=== PATIENT | female | born 1965 | race Caucasian/White ===

== ENCOUNTER 2019-07-30 21:28 | Emergency (ER) | payer SELFPAY ==
--- NOTE | 2019-07-30 21:43 | ER Document Report ---
ED Medical Screen (RME) - General Stated Complaint: ALTERED MENTAL STATUS Notes: Patient is a 54-year-old white female with a past medical history of hypothyroidism on Synthroid who is a current everyday smoker and was recently diagnosed with an unknown type of cancer who presents to the emergency department accompanied by her daughters with a chief complaint of alteration in her baseline mental status. They report that the patient's not been answering her phone calls lately, when they have spoken with her she seemed a little bit odd but they thought that she was just ignoring them. She states that her sibling spoke with her the other night and had a good conversation but when she tried to call and re-create that conversation she states that her mother was abnormal. They went over to her house and found her to be what appeared unlike herself. They states she is acting weak and slightly confused. They report they are unsure the last time she was normal. They state no specific weaknesses or deficits. No facial drooping. They state that she seems oriented and the patient just keeps repeating "I just want to sleep". She denies any other specific complaints. I have treated and performed a rapid initial assessment of this patient. A comprehensive ED assessment and evaluation of the patient, analysis of test results and completion of medical decision making process will be conducted by additional ED providers. PHYSICAL EXAMINATION: GENERAL: Well-appearing, well-nourished and in no acute distress. A&Ox4. Answers questions appropriately. Neuro: Alert and oriented to self, place and situation, 4 out of 5 strength in all extremities, neurovascular intact in all. No focal deficits
--- NOTE | 2019-07-30 22:32 | RADIOLOGY REPORT (SQ) ---
EXAM DESCRIPTION: XR CHEST 2 VIEWS COMPLETED DATE/TME: 07/30/2019 21:39 CLINICAL HISTORY: 54 years, Female, AMS COMPARISON: None. NUMBER OF VIEWS: 2 TECHNIQUE: LIMITATIONS: None. FINDINGS: Lungs grossly clear. Cardiomediastinal silhouette is of normal size. Tiny metallic structure projecting over the central right arm. No pneumothorax. No pleural effusion IMPRESSION: No active intrathoracic disease copyright 2010 [employer]- All Rights Reserved
--- NOTE | 2019-07-30 22:33 | RADIOLOGY REPORT (SQ) ---
EXAM DESCRIPTION: CT HEAD WITHOUT IV CONTRAST COMPLETED DATE/TME: 07/30/2019 21:39 CLINICAL HISTORY: 54 years, Female, AMS COMPARISON: None. TECHNIQUE: Images stored on PACS. All CT scanners at this facility use dose modulation, iterative reconstruction, and/or weight based dosing when appropriate to reduce radiation dose to as low as reasonably achievable (ALARA). [facility]: Dose Right [facility]: CareDose [facility]: Dose Right [facility]: Teradose 4D [facility]: Smart Technologies LIMITATIONS: None. FINDINGS: James-white differentiation is normal. The ventricles and extracerebral spaces are within normal limits, for age. No evidence of mass lesion, positive mass effect, or intracranial hemorrhage. The orbits and eyeballs unremarkable. Paranasal sinuses and mastoid air cells are clear. Calvarium appears intact IMPRESSION: No acute intracranial process is identified. The cause of the patient's mental status change is not identified on this examination. TECHNICAL DOCUMENTATION: Quality ID # 436: Final reports with documentation of one or more dose reduction techniques (e.g., Automated exposure control, adjustment of the mA and/or kV according to patient size, use of iterative reconstruction technique) copyright 2011 [employer]- All Rights Reserved
[2019-07-30 23:10] LABS: ABSOLUTE BASOPHILS # (AUTO) 0.1 10^3/uL (0.0-0.2); ABSOLUTE LYMPHOCYTES (AUTO) 1.8 10^3/uL (0.5-4.7); ABSOLUTE MONOCYTES (AUTO) 0.4 10^3/uL (0.1-1.4); ABSOLUTE NEUT (AUTO) 4.9 10^3/uL (1.7-8.2); BASOPHILS % (AUTO) 0.7 % (0-2); EOSINOPHILS % (AUTO) 0.1 % (0-6); HEMATOCRIT 38.1 % (36.0-47.0); HEMOGLOBIN 13.4 g/dL (12.0-15.5); LYMPHOCYTES % (AUTO) 25.3 % (13-45); MEAN CORPUSCULAR HGB CONC 35.3 g/dL (32.0-36.0); MEAN CORPUSCULAR VOLUME 99 fl (80-97); MONOCYTES % (AUTO) 5.1 % (3-13); PLATELET COUNT 221 10^3/uL (150-450); RED BLOOD COUNT 3.84 10^6/uL (3.72-5.28); RED CELL DISTRIBUTION WIDTH 15.8 % (11.5-14.0); SEGMENTED NEUTROPHILS % (AUTO) 68.8 % (42-78); TOTAL CELLS COUNTED % (AUTO) 100 %; WHITE BLOOD COUNT 7.2 10^3/uL (4.0-10.5)
[2019-07-30 23:13] LABS: ALBUMIN 4.2 g/dL (3.5-5.0); ALKALINE PHOSPHATASE 324 U/L (38-126); ASPARTATE AMINO TRANSFERASE 608 U/L (14-36); BILIRUBIN,DIRECT 0.9 mg/dL (0.0-0.4); BILIRUBIN,TOTAL 1.3 mg/dL (0.2-1.3); BLOOD UREA NITROGEN 6 mg/dL (7-20); CALCIUM 9.4 mg/dL (8.4-10.2); GLUCOSE 91 mg/dL (75-110); POTASSIUM 3.8 mmol/L (3.6-5.0); TOTAL PROTEIN 7.3 g/dL (6.3-8.2)
[2019-07-30 23:18] LABS: ANION GAP 19 (5-19); CARBON DIOXIDE 25 mmol/L (22-30); CHLORIDE 91 mmol/L (98-107)
[2019-07-30] MEDS ORDERED: NORMAL SALINE 1000 ML 1,000 ML IV ONE (23:36)
[2019-07-30 23:58] LABS: APPEARANCE,URINE CLEAR; BILIRUBIN,URINE NEGATIVE (NEGATIVE); COLOR,URINE YELLOW; GLUCOSE, URINE NEGATIVE (NEGATIVE); KETONES,URINE 20 mg/dL (NEGATIVE); LEUKOCYTE ESTERASE,URINE NEGATIVE (NEGATIVE); NITRITE,URINE NEGATIVE (NEGATIVE); PROTEIN,URINE NEGATIVE (NEGATIVE); URINE SPECIFIC GRAVITY 1.014
--- NOTE | 2019-07-31 00:19 | ER Document Report ---
Entered by TAMIKO WEAVER SCRIBE 07/30/19 0164 Acting as scribe for:BETI VIRK IV, MD ED General - General Chief Complaint: Altered Mental Status Stated Complaint: ALTERED MENTAL STATUS Time Seen by Provider: 07/30/19 22:56 Mode of Arrival: Ambulatory Information source: Patient, Relative Notes: This 54 year old female patient who was recently diagnosed with breast cancer presents to the ED today with complaints of altered mental status per the daughters. Daughter states that she suspects that the patient has been in bed and not eating for the past x2 weeks. Daughter notes that the patient lives at her sister's house alone because she is currently residing in [place] with her boyfriend. Daughter states that when her and her other sibling went to go check on the patient, they found a bottle of wine, what appeared to be "dried out blood in the sink", and noticed that the patient seemed "out of it" and sleepy. Daughter notes that the patient appeared weak and confused. Daughter states that patient has had some weight loss in the past x6 months, but does not characterize how much. Patient states that she was diagnosed with breast cancer in 2019 after a spot was found underneath her right breast during a mammogram. Patient notes that she has no plans to seek medical attention or treatment for the cancer, stating "I don't want to be cut open". Patient states that she has had a poor appetite for awhile, stating that "I feel like I'm full all the time." Patient also reports nausea and vomiting when she thinks about food. Patient reports throat pain. TRAVEL OUTSIDE OF THE [place] IN LAST 30 DAYS: No - Related Data Allergies/Adverse Reactions: No Known Allergies Allergy (Unverified 07/31/19 01:10) Home Medications: levothyroxine 88 mcg qday Past Medical History - General Information source: Patient - Social History Smoking Status: Current Every Day Smoker Cigarette use (# per day): Yes Chew tobacco use (# tins/day): No Smoking Education Provided: No Family History: Reviewed & Not Pertinent Patient has suicidal ideation: No Patient has homicidal ideation: No Endocrine Medical History: Reports: Hx Hypothyroidism Malignancy Medical History: Reports: Hx Breast Cancer - recently diagnosed in 2019; untreated Review of Systems - Review of Systems Constitutional: See HPI, Weakness, Weight loss EENT: See HPI, Throat pain Cardiovascular: No symptoms reported Respiratory: No symptoms reported Gastrointestinal: See HPI, Nausea, Vomiting, Poor appetite Genitourinary: No symptoms reported Female Genitourinary: No symptoms reported Musculoskeletal: No symptoms reported Skin: No symptoms reported Hematologic/Lymphatic: No symptoms reported Neurological/Psychological: See HPI, Confusion, Other - Altered mental status -: Yes All other systems reviewed and negative Physical Exam - Vital signs Vitals: Temp Pulse Resp BP Pulse Ox 98.5 F 107 H 18 112/79 99 07/30/19 21:37 07/30/19 21:37 07/30/19 21:37 07/30/19 21:37 07/30/19 21:37 Interpretation: Tachycardic - General General appearance: Alert - HEENT Head: Normocephalic, Atraumatic Eyes: Normal Pupils: PERRL Mouth/Lips: Other - White discharge/patches on tongue - Respiratory Respiratory status: No respiratory distress Chest status: Nontender Breath sounds: Normal Chest palpation: Normal - Cardiovascular Rhythm: Tachycardia Heart sounds: Normal auscultation Murmur: No Friction rub: No Gallop: None auscultated - Abdominal Inspection: Normal Distension: No distension Bowel sounds: Normal Tenderness: Nontender - Abdomen soft Organomegaly: No organomegaly - Back Back: Normal, Nontender - Extremities General upper extremity: Normal inspection General lower extremity: Normal inspection - Neurological Neuro grossly intact: Yes - Psychological Associated symptoms: Normal affect, Normal mood - Skin Skin Temperature: Warm Skin Moisture: Dry Skin Color: Normal Course - Re-evaluation Re-evalutation: 07/31/19 02:53 Results of ED MSE discussed with patient. Patient offered resources for help with her alcohol use disorder. Patient declined. Patient states she can "stop whenever". All questions were answered prior to discharge. Emergency signs and symptoms, reasons to return to the ED discussed with patient. - Vital Signs Vital signs: Temp Pulse Resp BP Pulse Ox 98.4 F 99 11 L 107/80 97 07/30/19 22:54 07/30/19 22:54 07/31/19 02:01 07/31/19 02:01 07/31/19 02:01 - Laboratory Result Diagrams: 07/30/19 22:40 07/30/19 22:40 Laboratory results interpreted by me: 07/30/19 07/30/19 07/30/19 22:40 22:40 22:40 MCV 99 H MCH 35.0 H RDW 15.8 H Sodium 135.4 L Chloride 91 L BUN 6 L Creatinine 0.44 L Direct Bilirubin 0.9 H AST 608 H ALT 248 H Alkaline Phosphatase 324 H Ammonia < 8.7 L TSH Urine Ketones Urine Blood Urine Urobilinogen 07/30/19 07/30/19 22:40 23:42 MCV MCH RDW Sodium Chloride BUN Creatinine Direct Bilirubin AST ALT Alkaline Phosphatase Ammonia TSH 6.30 H Urine Ketones 20 H Urine Blood SMALL H Urine Urobilinogen 4.0 H Discharge - Discharge Clinical Impression: Alcohol use disorder Condition: Good Disposition: HOME, SELF-CARE Additional Instructions: Return to the Emergency Department without delay if any worse. HOME CARE INSTRUCTIONS & INFORMATION: Thank you for choosing us for your medical needs. We hope you're satisfied with the care you received. After you leave, you must properly care for your problem and, at the same time, observe its progress. Any condition can change. Some illnesses can change rapidly over hours or days. If your condition worsens, return to the Emergency Department or see your physician promptly. ABOUT YOUR X-RAYS AND EKG'S: If you had an EKG or X-rays taken, they have been read by the Emergency Physician. The X-rays and EKG's will also be read by a Radiologist or [facility] Steward/Stewardess within 24 hours. If discrepancies are noted, you will be notified by telephone. Please be certain the ED has a correct telephone number & address where you can be reached. Also, realize that some fractures or abnormalities do not show up on initial X-rays. If your symptoms continue, see your physician. ABOUT YOUR LABORATORY TEST: If you had laboratory tests, the results have been reviewed by the Emergency Physician. Some test results (for example cultures) may not be available for several days. You will be contacted if any test result shows you need additional treatment. Please be certain the ED has a correct telephone number and address where you can be reached. ABOUT YOUR MEDICATIONS: You will receive instructions on how to take your medicine on the prescription label you receive. Additional information may be provided by the Pharmacy. If you have questions afterwards, call the ED for clarification or further instructions. Some prescribed medications may cause drowsiness. Do not perform tasks such as driving a car or operating machinery without consulting your Pharmacist. If you feel you need a refill of pain m edication, your condition will need re-evaluation. Please do not call for a refill of any medication. ABOUT YOUR SIGNATURE: Signature of this document acknowledges to followin. Understanding that you received emergency treatment and that you may be released before al medical problems are known or treated. Please be certain the ED has a correct phone number & address where you can be reached. 2. Acknowledgement that you will arrange for follow-up care as recommended. 3. Authorization for the Emergency Physician to provide information to your follow-up Physician in order to maximize your care. AT ANY TIME, IF YOUR SYMPTOMS CHANGE SIGNIFICANTLY OR WORSEN OR YOU DEVELOP NEW SYMPTOMS, RETURN TO THE EMERGENCY DEPARTMENT IMMEDIATELY FOR RE-EVALUATION. OUR GOAL IS TO PROVIDE EXCELLENT MEDICAL CARE! WE HOPE THAT WE HAVE MET YOUR EXPECTATIONS DURING YOUR EMERGENCY DEPARTMENT VISIT AND THAT YOU FEEL YOU HAVE RECEIVED EXCELLENT CARE! Referrals: JF WEBER MD [HONORARY] - Follow up as needed I personally performed the services described in the documentation, reviewed and edited the documentation which was dictated to the scribe in my presence, and it accurately records my words and actions.
[2019-07-31 00:31] LABS: URINE AMPHETAMINES SCREEN NEGATIVE; URINE BARBITURATES SCREEN NEGATIVE; URINE BENZODIAZEPINES SCREEN NEGATIVE; URINE COCAINE SCREEN NEGATIVE; URINE MARIJUANA (THC) SCREEN NEGATIVE; URINE METHADONE SCREEN NEGATIVE; URINE PHENCYCLIDINE SCREEN NEGATIVE
--- NOTE | 2019-07-31 01:02 | RADIOLOGY REPORT (SQ) ---
EXAM DESCRIPTION: CT ABDOMEN PELVIS WITH IV CONTRAST COMPLETED DATE/TME: 07/30/2019 23:37 CLINICAL HISTORY: 54 years, Female, right upper quadrant abdominal pain COMPARISON: None. TECHNIQUE: Images stored on PACS. Additional delayed phase imaging All CT scanners at this facility use dose modulation, iterative reconstruction, and/or weight based dosing when appropriate to reduce radiation dose to as low as reasonably achievable (ALARA). [facility]: Dose Right [facility]: CareDose [facility]: Dose Right [facility]: Teradose 4D [facility]: [employer] LIMITATIONS: None. FINDINGS: Lung bases are clear. The heart is of normal size. Small hiatal hernia. Hepatic steatosis. Gallbladder is physiologically distended without inflammatory change. The pancreas appears unremarkable. The spleen appears grossly normal. The adrenals and kidneys appear grossly normal. The bowel is nonobstructed. A few mildly edematous loops of small bowel are identified. No high-grade obstruction. Pelvic contents demonstrate a dominant cyst left adnexa presumably left ovarian origin measuring 3.4 cm. No significant free fluid. No pneumothorax. The visualized bones are within normal limits for age IMPRESSION: Hepatic steatosis. Gallbladder distention without inflammatory change. Several mildly edematous loops of jejunum, likely a focal enteritis. Dominant cyst left ovary measuring 3.4 cm. TECHNICAL DOCUMENTATION: Quality ID # 436: Final reports with documentation of one or more dose reduction techniques (e.g., Automated exposure control, adjustment of the mA and/or kV according to patient size, use of iterative reconstruction technique) copyright 2011 [employer]- All Rights Reserved
[2019-07-31 03:51] VITALS: BP 120/81
--- NOTE | 2019-07-31 07:43 | EKG REPORT ---
SEVERITY:- BORDERLINE ECG - SINUS RHYTHM BORDERLINE INFERIOR Q WAVES : Confirmed by: Kyle Villalobos MD 31-Jul-2019 07:42:59
== END 2019-07-31 03:50 | disposition home or self-care (01) ==
LOC: ER 21:28
DX: R41.82 Altered mental status, unspecified (principal); Z72.89 Other problems related to lifestyle; C50.919 Malignant neoplasm of unspecified site of unspecified female breast; R11.2 Nausea with vomiting, unspecified; R53.1 Weakness; F17.210 Nicotine dependence, cigarettes, uncomplicated; E03.9 Hypothyroidism, unspecified
CPT/HCPCS: 93005; 99285; 96360; 36415; 82962; 80307 ×2; 82140; 83735; 84443; 85025; 80053; 81001; 84484; 71046; 70450; 74177; 93010; J7030

== ENCOUNTER 2019-08-24 15:42 | Emergency (ER) | payer SELFPAY ==
--- NOTE | 2019-08-24 16:36 | ER Document Report ---
ED Medical Screen (RME) - General Chief Complaint: General Weakness Stated Complaint: SHAKY, WEAKNESS Time Seen by Provider: 08/24/19 16:27 Mode of Arrival: Ambulatory Information source: Patient Notes: This 54-year-old female with history of hypothyroidism presents to the emergency department with complaints of no appetite, unable to taste, abdominal pain, not eating for the past week. Patient reports she feels very weak now. Reports this is never happened to her before. Patient just moved to [place] in June. She denies fever nausea vomiting reports diarrhea while ago nothing recent. Unsure of her last bowel movement but reports that she has not been eating so she did not expect any out put. Denies pain with void. Reports she takes levothyroxine for her thyroid. This is prescribed by her doctor in [place]. She reports she had labs done before she moved here and everything was normal. Upper quad epigastric area very tender to palpate. I have greeted and performed a rapid initial assessment of this patient. A comprehensive ED assessment and evaluation of the patient, analysis of test results and completion of the medical decision making process will be conducted by additional ED providers. TRAVEL OUTSIDE OF THE [place] IN LAST 30 DAYS: No - Related Data Allergies/Adverse Reactions: No Known Allergies Allergy (Verified 08/24/19 16:27) Past Medical History Endocrine Medical History: Reports: Hx Hypothyroidism Malignancy Medical History: Reports: Hx Breast Cancer - recently diagnosed in 2019; untreated Physical Exam - Vital signs Vitals: Temp Pulse Resp BP Pulse Ox 98.7 F 131 H 18 135/83 H 98 08/24/19 15:45 08/24/19 15:45 08/24/19 15:45 08/24/19 15:45 08/24/19 15:45 Course - Vital Signs Vital signs: Temp Pulse Resp BP Pulse Ox 98.7 F 131 H 18 135/83 H 98 08/24/19 15:45 08/24/19 15:45 08/24/19 15:45 08/24/19 15:45 08/24/19 15:45
--- NOTE | 2019-08-24 16:55 | RADIOLOGY REPORT (SQ) ---
EXAM DESCRIPTION: KUB/ABDOMEN (SINGLE VIEW) COMPLETED DATE/TIME: 08/24/2019 4:47 pm REASON FOR STUDY: ABD PAIN, UNSURE LAST BM COMPARISON: None. NUMBER OF VIEWS: One view. TECHNIQUE: Supine radiographic image of the abdomen acquired. LIMITATIONS: None. FINDINGS: BOWEL GAS PATTERN: Normal bowel gas pattern. No dilated loops. CALCIFICATIONS: No suspicious calcifications. SOFT TISSUES: No gross mass or suggestion of organomegaly. HARDWARE: None in the abdomen. BONES: No acute fracture. No worrisome bone lesions. OTHER: No other significant finding. IMPRESSION: NO RADIOGRAPHIC EVIDENCE FOR ACUTE ABDOMINAL DISEASE. TECHNICAL DOCUMENTATION: JOB ID: [id number] 2010 [employer]- All Rights Reserved Reading location - IP/workstation name: [email or web address]
[2019-08-24] MEDS ORDERED: NORMAL SALINE 1000 ML 1,000 ML IV ONE (17:14)
[2019-08-24 17:37] LABS: APPEARANCE,URINE SLIGHTLY-CLOUDY; BILIRUBIN,URINE NEGATIVE (NEGATIVE); COLOR,URINE AMBER; GLUCOSE, URINE NEGATIVE (NEGATIVE); KETONES,URINE TRACE mg/dL (NEGATIVE); LEUKOCYTE ESTERASE,URINE NEGATIVE (NEGATIVE); NITRITE,URINE NEGATIVE (NEGATIVE); PROTEIN,URINE 30 mg/dL (NEGATIVE); URINE SPECIFIC GRAVITY 1.024
[2019-08-24 17:48] LABS: ADD MANUAL MICROSCOPIC YES; WBC,URINE RARE /HPF
--- NOTE | 2019-08-24 17:56 | RADIOLOGY REPORT (SQ) ---
EXAM DESCRIPTION: U/S ABDOMEN LIMITED W/O DOP COMPLETED DATE/TIME: 08/24/2019 5:38 pm REASON FOR STUDY: RUQ EPIGASTRIC PAIN COMPARISON: CT dated 07/31/2019. TECHNIQUE: Dynamic and static grayscale images acquired of the abdomen and recorded on PACS. Additio nal selected color Doppler and spectral images recorded. Note: Study does not meet criteria for a complete doppler/duplex scan LIMITATIONS: None. FINDINGS: PANCREAS: No masses. Visualized pancreatic duct normal caliber. LIVER: Echotexture is coarse with increased echogenicity consistent with fatty infiltration. LIVER VASCULATURE: Normal directional flow of the main portal vein and hepatic veins. GALLBLADDER: Somewhat distended. No stones. Normal wall thickness. No pericholecystic fluid. ULTRASOUND-DETECTED SAEED'S SIGN: Negative. INTRAHEPATIC DUCTS AND COMMON DUCT: CBD and intrahepatic ducts normal caliber. No filling defects. INFERIOR VENA CAVA: Normal flow. AORTA: No aneurysm. RIGHT KIDNEY: Normal size. Normal echogenicity. No solid or suspicious masses. No hydronephrosis. No calcifications. PERITONEAL AND PLEURAL SPACES: No ascites or effusions. OTHER: No other significant finding. IMPRESSION: SOMEWHAT DISTENDED GALLBLADDER WITH NO GALLSTONES, SIMILAR FINDING ALSO SEEN ON RECENT C T. FATTY LIVER. NO OTHER SIGNIFICANT FINDING. TECHNICAL DOCUMENTATION: JOB ID: [id number] 2010 [employer]- All Rights Reserved Reading location - IP/workstation name: [email or web address]
[2019-08-24 18:20] LABS: ABSOLUTE MONOCYTES (AUTO) 0.3 10^3/uL (0.1-1.4); MONOCYTES % (AUTO) 4.8 % (3-13); PLATELET COUNT 183 10^3/uL (150-450); TOTAL CELLS COUNTED % (AUTO) 100 %
[2019-08-24 18:25] LABS: URINE AMPHETAMINES SCREEN NEGATIVE; URINE BARBITURATES SCREEN NEGATIVE; URINE BENZODIAZEPINES SCREEN NEGATIVE; URINE COCAINE SCREEN NEGATIVE; URINE MARIJUANA (THC) SCREEN NEGATIVE; URINE METHADONE SCREEN NEGATIVE; URINE PHENCYCLIDINE SCREEN NEGATIVE
[2019-08-24 18:26] LABS: ABSOLUTE LYMPHOCYTES (AUTO) 0.9 10^3/uL (0.5-4.7); ABSOLUTE NEUT (AUTO) 5.3 10^3/uL (1.7-8.2); BASOPHILS % (AUTO) 0.7 % (0-2); EOSINOPHILS % (AUTO) 0.1 % (0-6); HEMATOCRIT 29.4 % (36.0-47.0); LYMPHOCYTES % (AUTO) 13.5 % (13-45); MEAN CORPUSCULAR HGB CONC 33.9 g/dL (32.0-36.0); RED BLOOD COUNT 2.85 10^6/uL (3.72-5.28); RED CELL DISTRIBUTION WIDTH 17.5 % (11.5-14.0); SEGMENTED NEUTROPHILS % (AUTO) 80.9 % (42-78); WHITE BLOOD COUNT 6.5 10^3/uL (4.0-10.5)
[2019-08-24 18:27] LABS: MEAN CORPUSCULAR VOLUME 103 fl (80-97)
[2019-08-24 18:35] LABS: ALBUMIN 3.1 g/dL (3.5-5.0); ALKALINE PHOSPHATASE 159 U/L (38-126); ANION GAP 8 (5-19); ASPARTATE AMINO TRANSFERASE 209 U/L (14-36); BILIRUBIN,DIRECT 0.2 mg/dL (0.0-0.4); BLOOD UREA NITROGEN 6 mg/dL (7-20); CALCIUM 8.6 mg/dL (8.4-10.2); CARBON DIOXIDE 24 mmol/L (22-30); CHLORIDE 102 mmol/L (98-107); GLUCOSE 102 mg/dL (75-110); POTASSIUM 4.3 mmol/L (3.6-5.0); TOTAL PROTEIN 5.6 g/dL (6.3-8.2)
[2019-08-24 19:03] VITALS: BP 123/93
--- NOTE | 2019-08-24 19:34 | ER Document Report ---
ED General - General Mode of Arrival: Ambulatory TRAVEL OUTSIDE OF THE [place] IN LAST 30 DAYS: No - Related Data Home Medications: [facility] -levothyroxine 88 mcg daily <KUMAR APONTE - Last Filed: 08/24/19 19:27> <BERNARDA ECHEVERRIA - Last Filed: 08/24/19 21:41> - General Chief Complaint: Decreased Appetite Stated Complaint: SHAKY, WEAKNESS Time Seen by Provider: 08/24/19 16:27 - HPI Notes: Patient is a 54-year-old female who presents the emergency department for evaluation. States she states that over the last week she has had upper abdominal pain, decreased appetite, abnormal taste in her mouth, and just generalized weakness. She states she is never really had anything like this before. She describes the pain in her upper abdomen as "my intestines are falling out" but really cannot characterize it anymore. She has not had a bowel movement in 3 days, but really states she has not eaten anything, so this does not surprise her. She has had some nausea and diminished appetite but no stephany sis. She is still urinating, is still holding down liquids. Nothing seems to make her pain better or worse. She states that she has lost a significant amount of weight over the last several months, but she is unsure as to how much. (KUMAR APONTE) - Related Data Allergies/Adverse Reactions: No Known Allergies Allergy (Verified 08/24/19 16:27) Past Medical History - General Information source: Patient - Social History Smoking Status: Current Every Day Smoker Chew tobacco use (# tins/day): No Frequency of alcohol use: Heavy - Drinks daily Drug Abuse: None Family History: Reviewed & Not Pertinent, Malignancy Patient has suicidal ideation: No Patient has homicidal ideation: No Endocrine Medical History: Reports: Hx Hypothyroidism Malignancy Medical History: Reports: Hx Breast Cancer - recently diagnosed in 2019; untreated <KUMAR APONTE - Last Filed: 08/24/19 19:27> Review of Systems - Review of Systems Constitutional: See HPI Gastrointestinal: See HPI -: Yes All other systems reviewed and negative <KUMAR APONTE - Last Filed: 08/24/19 19:27> Physical Exam <KUMAR APONTE - Last Filed: 08/24/19 19:27> - Vital signs Vitals: Temp Pulse Resp BP Pulse Ox 98.7 F 131 H 18 135/83 H 98 08/24/19 15:45 08/24/19 15:45 08/24/19 15:45 08/24/19 15:45 08/24/19 15:45 - Notes Notes: This is a 54-year-old female who appears her stated age in no acute distress. She is very anxious in appearance, has intermittent tremor. Vital signs reviewed, please refer to chart. Head is normocephalic, atraumatic. Pupils equal round, reactive to light. Neck is supple without meningismus. Heart is regular rate and rhythm. Lungs are clear to auscultation bilaterally. Abdomen is soft, mildly tender in the epigastrium without rebound or guarding, normoactive bowel sounds throughout. Extremities without cyanosis, clubbing. Posterior calves are nontender. Peripheral pulses are equal. Skin is warm and dry. Patient is awake, alert, neurological exam is nonfocal. (KUMAR APONTE) Course - Laboratory Result Diagrams: 08/24/19 18:09 08/24/19 18:09 - Diagnostic Test Radiology reviewed: Reports reviewed <KUMAR APONTE - Last Filed: 08/24/19 19:27> - Laboratory Result Diagrams: 08/24/19 18:09 08/24/19 18:09 - Diagnostic Test Radiology reviewed: Reports reviewed <BERNARDA ECHEVERRIA - Last Filed: 08/24/19 21:41> - Re-evaluation Re-evalutation: 08/24/19 19:31 Patient presents to the emergency department for evaluation. Initially she complained of constitutional symptoms and abdominal pain. She was tachycardic, given IV fluids, and had a modest and temporary improvement in her heart rate. She denied any other medical history. She did have a mild elevation in her LFTs. I went back to prior labs, saw that they were actually worse in the past. I did have the opportunity at that time to review her last visit. It seems at that point that she admitted to a breast mass. I went in to discuss this with the patient. She states that yes, she was found to have a lump in her breast. She declined biopsy or any sort of evaluation. She states to me that it was because "once they cut into it, everything goes bad." I talked to her at length about this, and urged her to seek out further evaluation. Of course, this does significantly change my differential diagnosis and my thoughts on evaluation. I discussed with her my concerns about a pulmonary embolus, metastatic disease to the abdomen. She voiced understanding to this. She was amenable to having CT angiogram of the chest and CT abdomen and pelvis with IV contrast for further evaluation. This is ordered at this time. Patient is currently stable, we will continue to monitor. (KUMAR APONTE) 08/24/19 21:40 I did review the patient's CT results with her advised her to follow-up with a local provider to establish general medical care also gave her oncology on- call's information recommend following up with Dr. Winters in the next several days for continued management. Patient states that she understands. Patient will be discharged home in stable condition no new medications will be administered. (BERNARDA ECHEVERRIA) - Vital Signs Vital signs: Temp Pulse Resp BP Pulse Ox 98.7 F 131 H 21 H 123/93 H 98 08/24/19 15:45 08/24/19 15:45 08/24/19 19:01 08/24/19 19:01 08/24/19 19:01 - Laboratory Laboratory results interpreted by me: 08/24/19 08/24/19 08/24/19 16:50 17:01 18:09 RBC 2.85 L Hgb 10.0 L Hct 29.4 L MCV 103 H D MCH 35.0 H RDW 17.5 H Seg Neutrophils % 80.9 H Sodium BUN Creatinine POC Glucose 129 H AST ALT Alkaline Phosphatase Total Protein Albumin Urine Protein 30 H Urine Ketones TRACE H Urine Urobilinogen 4.0 H 08/24/19 18:09 RBC Hgb Hct MCV MCH RDW Seg Neutrophils % Sodium 134.2 L BUN 6 L Creatinine 0.44 L POC Glucose AST 209 H ALT 87 H Alkaline Phosphatase 159 H Total Protein 5.6 L Albumin 3.1 L Urine Protein Urine Ketones Urine Urobilinogen - Diagnostic Test Radiology results interpreted by me: 08/24/19 19:34 Abdomen Ultrasound 08/24/19 16:32 IMPRESSION: SOMEWHAT DISTENDED GALLBLADDER WITH NO GALLSTONES, SIMILAR FINDING ALSO SEEN ON RECENT CT. FATTY LIVER. NO OTHER SIGNIFICANT FINDING. KUB X-Ray 08/24/19 16:32 IMPRESSION: NO RADIOGRAPHIC EVIDENCE FOR ACUTE ABDOMINAL DISEASE. (KUMAR APONTE) Discharge <KUMAR APONTE - Last Filed: 08/24/19 19:27> <BERNARDA ECHEVERRIA - Last Filed: 08/24/19 21:41> - Discharge Clinical Impression: Breast mass, right Condition: Stable Disposition: HOME, SELF-CARE Additional Instructions: Please ensure to follow-up with a local provider to establish generalized medical care in the area Dr. Martines is 1 to be recommended. Please follow-up with Dr. Winters oncology/cancer specialist. Please advise his office that you were seen in the emergency department today had multiple studies performed that way they can obtain your records prior to your visit. Referrals: THOMAS MARTINES MD [ACTIVE STAFF] - Follow up as needed AGGIE WINTERS MD [ACTIVE STAFF] - Follow up as needed
--- NOTE | 2019-08-24 20:43 | RADIOLOGY REPORT (SQ) ---
CT OF THE CHEST, ABDOMEN, AND PELVIS EXAM DATE: 08/24/2019 7:20 PM CDT HISTORY: Shortness of breath. Abdominal pain. Breast mass. COMPARISON: 07/30/2019 TECHNIQUE: 1. CT angiogram of the chest with IV contrast. 3-D reconstructions were obtained in postprocessing. 2. CT scan of the abdomen and pelvis with IV contrast. This exam was performed according to our departmental dose-optimization program, which includes automated exposure control, adjustment of the mA and/or kV according to patient size and/or use of iterative reconstruction technique. FINDINGS: The thyroid gland is unremarkable. No mediastinal or hilar adenopathy. The heart size is normal without pericardial effusion. No consolidation, pleural effusion, or pneumothorax. There is a large hiatal hernia. Diffuse hepatic steatosis. Gallbladder, spleen, pancreas, adrenal glands, and kidneys are unremarkable. There is a 2 cm left ovarian cyst. There has been a prior hysterectomy. Large amount stool in the rectum. No bowel obstruction or inflammation. Normal appendix. No intraperitoneal free fluid or free air is seen. The aorta is normal caliber and contains atherosclerotic calcifications. No acute fracture is seen. No abnormal body wall hernia. There is a 2.4 x 1.5 cm soft tissue lesion in the right breast. IMPRESSION: 1. No acute pulmonary embolism. 2. No acute intra-abdominal findings. 3. 2.4 cm right breast mass.
== END 2019-08-24 22:00 | disposition home or self-care (01) ==
LOC: ER 15:42
DX: N63.0 Unspecified lump in unspecified breast (principal); K82.8 Other specified diseases of gallbladder; K76.0 Fatty (change of) liver, not elsewhere classified; R10.10 Upper abdominal pain, unspecified; R63.0 Anorexia; R53.1 Weakness; R43.9 Unspecified disturbances of smell and taste; R11.0 Nausea; R63.4 Abnormal weight loss; R00.0 Tachycardia, unspecified; F17.200 Nicotine dependence, unspecified, uncomplicated; E03.9 Hypothyroidism, unspecified; Z79.899 Other long term (current) drug therapy
CPT/HCPCS: 99284; 96360; 36415; 82962; 80307 ×2; 83690; 84443; 85025; 80053; 81001; 74018; 76705; 71275; 74177; J7030

== ENCOUNTER 2019-10-22 13:19 | Emergency (ER) | payer SELFPAY ==
[2019-10-22] MEDS ORDERED: NORMAL SALINE 1000 ML 1,000 ML IV ONE (13:57)
--- NOTE | 2019-10-22 13:58 | ER Document Report ---
ED General - General Stated Complaint: SHORTNESS OF BREATH Notes: CHIEF COMPLAINT: Multiple complaints HPI: 54-year-old alcoholic female presenting for evaluation of multiple complaints. Patient states over the last 6 days she has generally not felt well. States that she gets some lightheadedness when going from a lying to standing position. States she has not been eating well. States 4 days ago she did develop some nausea and increased generalized weakness. Denies dark tarry stools. States she threw up 2 or 3 times and noticed some blood in her emesis. Complains of a burning sensation through the upper chest and into the throat. Denies abdominal pain otherwise. Denies shortness of breath. Denies headache. States she does drink alcohol daily but has not had a drink in several days. Patient states she has been having difficulty walking because of her generalized weakness. She states she did drive herself to the ER today ROS: See HPI - all other systems were reviewed and are otherwise negative Constitutional: no fever Eyes: no drainage, no blurred vision ENT: no runny nose, no sore throat Cardiovascular: + chest pain Resp: no SOB, no cough GI: + vomiting, no diarrhea, no abdominal pain : no dysuria Integumentary: no rash Allergy: no hives Musculoskeletal: no extremity pain or swelling Neurological: no numbness/tingling, + generalized weakness MEDICATIONS: I agree with the patient medications as charted by the RN. ALLERGIES: I agree with the allergies as charted by the RN. PAST MEDICAL HISTORY/PAST SURGICAL HISTORY: Reviewed and agree as charted by RN. SOCIAL HISTORY: Reviewed and agree as charted by RN. FAMILY HISTORY: No significant familial comorbid conditions directly related to patient complaint EXAM: Reviewed vital signs as charted by RN. CONSTITUTIONAL: Alert and oriented and responds appropriately to questions. Cachectic-appearing; poorly -nourished, disheveled, appears older than stated age HEAD: Normocephalic; atraumatic EYES: PERRL; Conjunctivae clear, sclerae non-icteric ENT: normal nose; no rhinorrhea; dry mucous membranes; pharynx without lesions noted, no uvula edema or deviation, no tonsillar hypertrophy, phonation normal NECK: Supple without meningismus; non-tender; no cervical lymphadenopathy, no masses CARD: RRR; no murmurs, no clicks, no rubs, no gallops; symmetric distal pulses RESP: Normal chest excursion without splinting or tachypnea; breath sounds clear and equal bilaterally; no wheezes, no rhonchi, no rales, pulse oximetry 98% on room air not hypoxic ABD/GI: Normal bowel sounds; non-distended; soft, non-tender, no rebound, no guarding; no palpable organomegaly or masses. BACK: The back appears normal and is non-tender to palpation, there is no CVA tenderness EXT: Normal ROM in all joints; non-tender to palpation; no cyanosis, no effusions, no edema SKIN: Normal color for age and race; warm; dry; good turgor; no acute lesions noted NEURO: Moves all extremities equally; Motor and sensory function intact PSYCH: The patient's mood and manner are appropriate. Grooming and personal hygiene are appropriate. MDM: 54-year-old alcoholic female presenting with generalized weakness. States she threw up 2 days ago did see some blood in her vomit has not thrown up in the last 2 days she has absolutely no abdominal pain on exam. She has no cough or shortness of breath complains of a burning sensation in the throat, she likely has varices given her alcoholism. I did stand the patient up and she is generally weak in all extremities there is no unilateral weakness to suggest a stroke her speech is slightly slurred but she is answering all questions appropriately. She states her last drink was several days ago. Will obtain basic screening labs, hydrate patient, obtain orthostatics. TRAVEL OUTSIDE OF THE [place] IN LAST 30 DAYS: No - Related Data Allergies/Adverse Reactions: No Known Allergies Allergy (Verified 08/24/19 16:27) Past Medical History - Social History Smoking Status: Current Every Day Smoker Family History: Reviewed & Not Pertinent, Malignancy Endocrine Medical History: Reports: Hx Hypothyroidism Malignancy Medical History: Reports: Hx Breast Cancer - recently diagnosed in 2019; untreated Physical Exam - Vital signs Vitals: Pulse BP 105 H 102/64 10/22/19 13:56 10/22/19 13:56 Course - Re-evaluation Re-evalutation: 10/22/19 15:47 I went back to reassess the patient. On review of the records her blood counts have been consistently dropping over the last several months. With female wrapping machine helper present rectal exam was performed. Good rectal tone. No visible external hemorrhoids. Patient with a moderate amount of black tarry stool in the rectal vault that is Hemoccult positive. Will type and screen the patient. Will order Protonix. 10/22/19 16:[address] Mckeon, Surgicalist. He only performs diagnostic endoscopies did not perform interventional endoscopies. There is a question of whether this patient may have varices as well given her alcoholism, awaiting lab work still, will transfuse 2 units PRBCs given patient's tachycardia, hemoglobin less than 8 and positive GI bleed. Patient will likely need transfer, discussed with Dr. Alex 10/22/19 16:32 Notified by nursing that patient's potassium was 1.8, her calcium is 5.8. Will send an ionized calcium. Have ordered potassium replacement 40 mEq p.o. 40 mEq IV initially. Patient is on the monitor. 2 units of PRBCs have been ordered for the patient. Awaiting the rest of her lab work and will likely need transfer 10/22/19 17:52 I spoke with the transfer center at [facility] regarding transfer, awaiting call back 10/22/19 18:[address] Julio Cesar Harris, Hospitalist, [facility]. Case was discussed, aware patient is receiving blood products, we discussed patient's labs and vital signs. Accepts patient for admission to [facility], they will call back with bed when available - Vital Signs Vital signs: Temp Pulse Resp BP Pulse Ox 100.5 F H 93 13 95/68 L 99 10/22/19 18:20 10/22/19 18:20 10/22/19 18:20 10/22/19 18:20 10/22/19 18:20 - Laboratory Result Diagrams: 10/22/19 14:47 10/22/19 15:36 Laboratory results interpreted by me: 10/22/19 10/22/19 10/22/19 14:47 15:36 16:25 RBC 2.17 L Hgb 7.9 L Hct 21.4 L MCV 99 H MCH 36.2 H MCHC 36.7 H RDW 14.9 H Band Neutrophils % 1 L Sodium 121.8 L Potassium 1.8 L* Chloride 71 L Carbon Dioxide 45 H* Calcium 6.9 L* Ionized Calcium Aubrey AST 145 H ALT 70 H Alkaline Phosphatase 132 H Total Protein 4.6 L Albumin 2.3 L Lipase 958.5 H Crossmatch See Detail 10/22/19 17:16 RBC Hgb Hct MCV MCH MCHC RDW Band Neutrophils % Sodium Potassium Chloride Carbon Dioxide Calcium Ionized Calcium Aubrey 0.93 L AST ALT Alkaline Phosphatase Total Protein Albumin Lipase Crossmatch Critical Care Note - Critical Care Note Total time excluding time spent on procedures (mins): 75 Comments: Hypotension, active GI bleed requiring transfusion of blood products, multiple electrolyte abnormalities requiring emergent intervention Discharge - Discharge Clinical Impression: Upper GI bleed, Hypokalemia, Hypocalcemia, Generalized weakness Hypotension Qualifiers: Hypotension type: unspecified hypotension type Qualified Code(s): I95.9 - Hypotension, unspecified Condition: Fair Disposition: [facility]
[2019-10-22] MEDS ORDERED: LIDOCAINE 2% VISCOUS SOLN 15 ML UDCUP PO ONE (14:15)
[2019-10-22] MEDS ORDERED: MAG HYDROX/AL HYDROX/SIMETH SUSP 30 ML UDCUP PO ONE (14:15)
[2019-10-22 14:59] LABS: HEMATOCRIT 21.4 % (36.0-47.0); MEAN CORPUSCULAR HEMOGLOBIN 36.2 pg (27.0-33.4); MEAN CORPUSCULAR HGB CONC 36.7 g/dL (32.0-36.0); MEAN CORPUSCULAR VOLUME 99 fl (80-97); PLATELET COUNT 166 10^3/uL (150-450); RED BLOOD COUNT 2.17 10^6/uL (3.72-5.28); RED CELL DISTRIBUTION WIDTH 14.9 % (11.5-14.0); WHITE BLOOD COUNT 9.6 10^3/uL (4.0-10.5)
[2019-10-22 15:14] LABS: INTERNATIONAL RATION (INR) 1.08; PROTHROMBIN TIME 14.1 SEC (11.4-15.4)
[2019-10-22 15:21] LABS: ABSOLUTE LYMPHOCYTES# (MANUAL) 1.6 10^3/uL (0.5-4.7); ABSOLUTE MONOCYTES # (MANUAL) 0.9 10^3/uL (0.1-1.4); BAND NEUTROPHILS % (MANUAL) 1 % (3-5); BASOPHILS % (MANUAL) 0 % (0-2); EOSINOPHILS % (MANUAL) 0 % (0-6); LYMPHOCYTES % (MANUAL) 17 % (13-45); MONOCYTES % (MANUAL) 9 % (3-13); SEGMENTED NEUTROPHILS % (MAN) 73 % (42-78); TOTAL CELLS COUNTED 100
[2019-10-22 15:24] LABS: HYPERSEGMENTED NEUTROPHILS PRESENT; TOXIC GRANULATION 2+
[2019-10-22 15:29] LABS: ANISOCYTOSIS SLIGHT; PLATELET COMMENT ADEQUATE
--- NOTE | 2019-10-22 15:38 | RADIOLOGY REPORT (SQ) ---
EXAM DESCRIPTION: CT HEAD WITHOUT IMAGES COMPLETED DATE/TIME: 10/22/2019 3:11 pm REASON FOR STUDY: dizziness COMPARISON: 07/30/2019 TECHNIQUE: Axial images acquired through the brain without intravenous contrast. Images reviewed wi th bone, brain and subdural windows. Additional sagittal and coronal reconstructions were generated. Images stored on PACS. All CT scanners at this facility use dose modulation, iterative reconstruction, and/or weight based d osing when appropriate to reduce radiation dose to as low as reasonably achievable (ALARA). [facility]: Dose Right [facility]: CareDose [facility]: Dose Right [facility]: Teradose 4D [facility]: Smart Technologies RADIATION DOSE: CT Rad equipment meets quality standard of care and radiation dose reduction techniq ues were employed. CTDIvol: 53.2 mGy. DLP: 1097 mGy-cm. mGy. LIMITATIONS: None. FINDINGS: VENTRICLES: Normal size and contour. CEREBRUM: No masses. No hemorrhage. No midline shift. No evidence for acute infarction. Normal gra y/white matter differentiation. No areas of low density in the white matter. CEREBELLUM: No masses. No hemorrhage. No alteration of density. No evidence for acute infarction. EXTRAAXIAL SPACES: No fluid collections. No masses. ORBITS AND GLOBE: No intra- or extraconal masses. Normal contour of globe without masses. CALVARIUM: No fracture. PARANASAL SINUSES: No fluid or mucosal thickening. SOFT TISSUES: No mass or hematoma. OTHER: No other significant finding. IMPRESSION: NORMAL BRAIN CT WITHOUT CONTRAST. EVIDENCE OF ACUTE STROKE: NO. COMMENT: Quality ID # [id number]: Final reports with documentation of one or more dose reduction techniques (e.g., Automated exposure control, adjustment of the mA and/or kV according to patient size, use of iterative reconstruction technique) TECHNICAL DOCUMENTATION: JOB ID: [id number] 2010 [employer]- All Rights Reserved Reading location - IP/workstation name: [email or web address]
[2019-10-22] MEDS ORDERED: PANTOPRAZOLE SODIUM 40 MG VIAL IV ONE (15:47)
[2019-10-22] MEDS ORDERED: NORMAL SALINE 250 ML IV PRN (15:58)
--- NOTE | 2019-10-22 16:00 | RADIOLOGY REPORT (SQ) ---
EXAM DESCRIPTION: CHEST SINGLE VIEW IMAGES COMPLETED DATE/TIME: 10/22/2019 3:13 pm REASON FOR STUDY: cough COMPARISON: None. EXAM PARAMETERS: NUMBER OF VIEWS: One view. TECHNIQUE: Single frontal radiographic view of the chest acquired. RADIATION DOSE: NA LIMITATIONS: None. FINDINGS: LUNGS AND PLEURA: No opacities, masses or pneumothorax. No pleural effusion. MEDIASTINUM AND HILAR STRUCTURES: No masses. Contour normal. HEART AND VASCULAR STRUCTURES: Heart normal in size. Normal vasculature. BONES: No acute findings. HARDWARE: None in the chest. OTHER: No other significant finding. IMPRESSION: NO ACUTE RADIOGRAPHIC FINDING IN THE CHEST. TECHNICAL DOCUMENTATION: JOB ID: [id number] 2010 [employer]- All Rights Reserved Reading location - IP/workstation name: [email or web address]
[2019-10-22 16:12] LABS: ALBUMIN 2.3 g/dL (3.5-5.0); ALKALINE PHOSPHATASE 132 U/L (38-126); ASPARTATE AMINO TRANSFERASE 145 U/L (14-36); BILIRUBIN,DIRECT 0.1 mg/dL (0.0-0.4); BILIRUBIN,TOTAL 0.8 mg/dL (0.2-1.3); BLOOD UREA NITROGEN 17 mg/dL (7-20); CHLORIDE 71 mmol/L (98-107); GLUCOSE 83 mg/dL (75-110); TOTAL PROTEIN 4.6 g/dL (6.3-8.2)
[2019-10-22 16:19] LABS: ALCOHOL < 10 mg/dL (NONE DETECTED); ANION GAP 6 (5-19)
[2019-10-22 16:25] LABS: CALCIUM 6.9 mg/dL (8.4-10.2); CARBON DIOXIDE 45 mmol/L (22-30); POTASSIUM 1.8 mmol/L (3.6-5.0)
[2019-10-22] MEDS ORDERED: POTASSIUM CHLORIDE 10 MEQ TABLET.ER PO ONE (16:28)
[2019-10-22] MEDS: POTASSI CL 20 MEQ/50 ML RIDER 20 MEQ/50 ML RTUPB IV SCH ×2 (17:20→19:36)
[2019-10-22] MEDS ORDERED: ACETAMINOPHEN 325 MG TABLET PO ONE (18:20)
--- NOTE | 2019-10-22 21:24 | EKG REPORT ---
SEVERITY:- NORMAL ECG - SINUS RHYTHM : Confirmed by: Kyle Villalobos MD 22-Oct-2019 21:24:24
[2019-10-22 21:34] VITALS: BP 96/71
[2019-10-23 13:46] LABS: HEMOGLOBIN 7.9 g/dL (12.0-15.5)
== END 2019-10-22 21:50 | disposition short-term general hospital (02) ==
LOC: ER 13:19
DX: K92.2 Gastrointestinal hemorrhage, unspecified (principal); E87.6 Hypokalemia; E83.51 Hypocalcemia; I95.9 Hypotension, unspecified; R53.1 Weakness; R06.02 Shortness of breath; R07.9 Chest pain, unspecified; F17.200 Nicotine dependence, unspecified, uncomplicated
CPT/HCPCS: 93005; 99291; 99292; 96361; 96375; 96365; 96366; 86900; 86901; 36415; 36430; 86850; 80307; 83690; 85025; 85610; 80053; 84484; 86920; 82330; 71045; 70450; 93010; P9016; J3490; C9113; J3480; J7030; J7050

== ENCOUNTER 2020-01-30 16:17 | Inpatient (IN) | payer SELFPAY ==
--- NOTE | 2020-01-30 17:34 | ER Document Report ---
ED Medical Screen (RME) - General Chief Complaint: Urinary Problem Stated Complaint: URINARY ISSUE Time Seen by Provider: 01/30/20 17:30 Mode of Arrival: Wheelchair Information source: Patient Notes: 55-year-old female presented to ED for urinary retention since yesterday. She states she is also had diarrhea for the last 2 days. She states she has had about 3 stools today. She states she drank 3 bottles of water and she is only sprinkled a little bit of urine. She is alert and oriented respirations regular nonlabored at this time. She states she does sometimes have shortness of blue th. She she states her abdomen is totally bloated until she cannot eat anything and is so painful that she cannot get off the couch the last 4 days. Patient does have ascites with a history of cirrhosis. I have greeted and performed a rapid initial assessment of this patient. A comprehensive ED assessment and evaluation of the patient, analysis of test results and completion of medical decision making process will be conducted by an additional ED providers. TRAVEL OUTSIDE OF THE [place] IN LAST 30 DAYS: No - Related Data Allergies/Adverse Reactions: No Known Allergies Allergy (Verified 01/30/20 17:29) Past Medical History Endocrine Medical History: Reports: Hx Hypothyroidism Malignancy Medical History: Reports: Hx Breast Cancer - recently diagnosed in 2019; untreated Physical Exam - Vital signs Vitals: Temp Pulse Resp BP Pulse Ox 97.9 F 117 H 20 107/74 100 01/30/20 16:28 01/30/20 16:28 01/30/20 16:28 01/30/20 16:28 01/30/20 16:28 Course - Vital Signs Vital signs: Temp Pulse Resp BP Pulse Ox 97.9 F 117 H 20 107/74 100 01/30/20 16:28 01/30/20 16:28 01/30/20 16:28 01/30/20 16:28 01/30/20 16:28
[2020-01-30 18:12] LABS: APPEARANCE,URINE CLOUDY; BILIRUBIN,URINE SMALL (NEGATIVE); CALCIUM OXALATE CRYSTALS,URINE RARE /HPF; COLOR,URINE AMBER; GLUCOSE, URINE NEGATIVE (NEGATIVE); KETONES,URINE NEGATIVE (NEGATIVE); LEUKOCYTE ESTERASE,URINE NEGATIVE (NEGATIVE); NITRITE,URINE NEGATIVE (NEGATIVE); PROTEIN,URINE 100 mg/dL (NEGATIVE); URINE SPECIFIC GRAVITY 1.025
[2020-01-30 18:22] LABS: URINE AMPHETAMINES SCREEN NEGATIVE; URINE BARBITURATES SCREEN NEGATIVE; URINE BENZODIAZEPINES SCREEN NEGATIVE; URINE COCAINE SCREEN NEGATIVE; URINE MARIJUANA (THC) SCREEN NEGATIVE; URINE METHADONE SCREEN NEGATIVE; URINE PHENCYCLIDINE SCREEN NEGATIVE
[2020-01-30 19:07] LABS: ABSOLUTE BASOPHILS # (AUTO) 0.1 10^3/uL (0.0-0.2); ABSOLUTE LYMPHOCYTES (AUTO) 1.3 10^3/uL (0.5-4.7); ABSOLUTE MONOCYTES (AUTO) 0.4 10^3/uL (0.1-1.4); ABSOLUTE NEUT (AUTO) 10.7 10^3/uL (1.7-8.2); BASOPHILS % (AUTO) 0.5 % (0-2); HEMATOCRIT 29.2 % (36.0-47.0); HEMOGLOBIN 9.8 g/dL (12.0-15.5); LYMPHOCYTES % (AUTO) 10.6 % (13-45); MEAN CORPUSCULAR HEMOGLOBIN 37.8 pg (27.0-33.4); MEAN CORPUSCULAR HGB CONC 33.6 g/dL (32.0-36.0); MONOCYTES % (AUTO) 3.3 % (3-13); PLATELET COUNT 237 10^3/uL (150-450); RED CELL DISTRIBUTION WIDTH 18.3 % (11.5-14.0); SEGMENTED NEUTROPHILS % (AUTO) 85.6 % (42-78); TOTAL CELLS COUNTED % (AUTO) 100 %; WHITE BLOOD COUNT 12.6 10^3/uL (4.0-10.5)
[2020-01-30 19:12] LABS: ALBUMIN 2.4 g/dL (3.5-5.0); ALKALINE PHOSPHATASE 331 U/L (38-126); ANION GAP 12 (5-19); ASPARTATE AMINO TRANSFERASE 190 U/L (14-36); BILIRUBIN,DIRECT 3.3 mg/dL (0.0-0.4); BILIRUBIN,TOTAL 5.9 mg/dL (0.2-1.3); BLOOD UREA NITROGEN 7 mg/dL (7-20); CALCIUM 10.6 mg/dL (8.4-10.2); CARBON DIOXIDE 27 mmol/L (22-30); CHLORIDE 93 mmol/L (98-107); GLUCOSE 101 mg/dL (75-110); POTASSIUM 3.3 mmol/L (3.6-5.0); TOTAL PROTEIN 6.1 g/dL (6.3-8.2)
[2020-01-30] MEDS ORDERED: FAMOTIDINE INJ/PF 20 MG/2 ML SDV IV ONE (19:16)
[2020-01-30] MEDS ORDERED: FENTANYL CITRATE INJ/PF 100 MCG/2 ML AMPUL IV ONE ×2 (19:16→19:17)
[2020-01-30] MEDS ORDERED: ONDANSETRON HCL INJ/PF 4 MG/2 ML SDV IV ONE (19:16)
[2020-01-30] MEDS ORDERED: NORMAL SALINE 1000 ML 1,000 ML IV ONE (19:16)
[2020-01-30 19:28] LABS: ALCOHOL < 10 mg/dL (NONE DETECTED)
--- NOTE | 2020-01-30 19:42 | RADIOLOGY REPORT (SQ) ---
EXAM DESCRIPTION: ACUTE ABDOMEN SERIES IMAGES COMPLETED DATE/TIME: 01/30/2020 7:09 pm REASON FOR STUDY: Abdominal pain and distention history cirrhosis COMPARISON: None. NUMBER OF VIEWS: Three views. TECHNIQUE: PA chest, supine abdomen and upright/decubitus abdomen radiographic images acquired. LIMITATIONS: None. FINDINGS: CHEST: Lungs clear of infiltrates. FREE AIR: None. No abnormal gas collections. BOWEL GAS PATTERN: Few scattered small bowel loops with air fluid levels. No distended large or small bowel loops. CALCIFICATIONS: No suspicious calcifications. HARDWARE: None in the abdomen. SOFT TISSUES: No gross mass or suggestion of organomegaly. BONES: No acute fracture. No worrisome bone lesions. OTHER: No other significant finding. IMPRESSION: NONSPECIFIC BOWEL GAS PATTERN.Few scattered small bowel loops with air fluid levels. TECHNICAL DOCUMENTATION: JOB ID: [id number] 2010 [employer] ([employer])- All Rights Reserved Reading location - IP/workstation name: [email or web address]
[2020-01-30 19:48] LABS: MEAN CORPUSCULAR VOLUME 112 fl (80-97)
[2020-01-30 19:50] LABS: ANISOCYTOSIS 2+; PLATELET COMMENT ADEQUATE; POLYCHROMASIA 1+; TARGET CELLS SLIGHT
[2020-01-30] MEDS ORDERED: LIDOCAINE 1% INJ (10 MG/ML) 10 ML MDV INJ ONE (20:31)
[2020-01-30] MEDS ORDERED: CEFTRIAXONE 2 GM/D5W RTU 2 GM/50 ML RTUPB IV ONE (20:52)
[2020-01-30] MEDS ORDERED: SIMETHICONE 80 MG TAB.CHEW PO ONE (20:53)
--- NOTE | 2020-01-30 21:01 | ER Document Report ---
ED GI/ - General Chief Complaint: Diarrhea Stated Complaint: URINARY ISSUE Time Seen by Provider: 01/30/20 17:30 Mode of Arrival: Wheelchair TRAVEL OUTSIDE OF THE [place] IN LAST 30 DAYS: No - HPI Notes: 01/31/20 01:36 55-year-old female presents with nausea, vomiting and diarrhea. No blood in stool or emesis. States she has not been able to eat x1 week, this is because "food repulses me". She has noticed that her abdomen has become bloated for the past 2 days, she has a central pain that is constant. She states that she believes about 2 months ago she had a paracentesis done in [place]. She additionally complains of heartburn. Denies chest pain or shortness of breath. She complains of generalized weakness, states she is so weak that she can barely sit up. Also reports decreased urine output. - Related Data Allergies/Adverse Reactions: No Known Allergies Allergy (Verified 01/30/20 17:29) Past Medical History - General Information source: Patient - Social History Smoking Status: Current Every Day Smoker Chew tobacco use (# tins/day): No Frequency of alcohol use: Occasional Drug Abuse: None Family History: Reviewed & Not Pertinent, Malignancy Patient has homicidal ideation: No Endocrine Medical History: Reports: Hx Hypothyroidism Malignancy Medical History: Reports: Hx Breast Cancer - recently diagnosed in 2019; untreated GI Medical History: Reports: Hx Cirrhosis Review of Systems - Review of Systems Constitutional: Weakness. denies: Fever EENT: No symptoms reported Cardiovascular: denies: Chest pain Respiratory: denies: Short of breath Gastrointestinal: Abdomen distended, Abdominal pain, Diarrhea, Nausea, Vomiting Genitourinary: See HPI Musculoskeletal: No symptoms reported Skin: No symptoms reported Hematologic/Lymphatic: No symptoms reported Neurological/Psychological: Weakness Physical Exam - Vital signs Vitals: Temp Pulse Resp BP Pulse Ox 97.9 F 117 H 20 107/74 100 01/30/20 16:28 01/30/20 16:28 01/30/20 16:28 01/30/20 16:28 01/30/20 16:28 Interpretation: Normal - General General appearance: Other - Chronically ill-appearing, cachectic - HEENT Head: Normocephalic, Atraumatic Eyes: No: Scleral icterus Pupils: PERRL - Respiratory Breath sounds: Normal - Cardiovascular Rhythm: Regular Heart sounds: Normal auscultation Normal capillary refill: Yes - Abdominal Distension: Distended, Fluid wave Bowel sounds: Normal Tenderness: Tender. No: Guarding, Rebound - Extremities General lower extremity: No: Edema - Neurological Neuro grossly intact: Yes Cognition: Normal Orientation: AAOx4 Motor strength normal: LUE, RUE, LLE, RLE - Psychological Associated symptoms: No: Confused - Skin Skin Temperature: Warm Skin Color: Pale Course - Re-evaluation Re-evalutation: 55-year-old female with history of alcohol like cirrhosis here with N/V/D, poor p.o. intake and generalized abdominal pain. She is chronically ill-appearing, cachectic. She does not appear overtly jaundiced. Her abdomen is distended and feels like ascites. Apparently had a paracentesis about 2 months ago. She has generalized mild tenderness on abdominal exam, I am concerned for SBP, will perform diagnostic paracentesis. Will start with symptomatic control. 01/30/20 20:54 Diagnostic paracentesis performed at bedside using ultrasound guidance. 10 cc of clear yellow fluid was withdrawn. Will be sent for cell count and culture. I have ordered 2 g of Rocephin to empirically cover for SBP. 01/30/20 22:48 CT abdomen has resulted. It shows diffuse bowel wall thickening, concerning for enteritis/colitis. Potentially this could reflect SBP. She is already received 2 g of Rocephin. 01/31/20 00:19 Case has been discussed with hospitalist for admission. Given the concern that she is in liver failure, will need to touch base with liver center. I went back in to rediscuss with patient. She reports her last alcohol consumption was on Friday, 2 days ago. Re-discussing her ascites, she now states that she is actually not sure if she had a paracentesis done at [facility]. 01/31/20 00:52 contacted [facility] transfer center to speak with hepatology/liver failure team 01/31/20 01:21 I discussed with hepatology at [facility]. Per our discussion, patient at this time does not meet criteria for transfer. This is because she is not overtly encephalopathic, INR is not greater then 2. We did discuss her maddrey score, she would be a steroid candidate, 40 mg daily, should be started once her cultures are negative. BCx/UCx ordered. I updated Dr. Rosenbaum, patient will be admitted here. - Vital Signs Vital signs: Temp Pulse Resp BP Pulse Ox 98.1 F 100 18 97/68 L 96 01/30/20 23:35 01/30/20 23:35 01/30/20 23:35 01/30/20 23:35 01/30/20 23:35 - Laboratory Result Diagrams: 01/30/20 18:35 01/30/20 18:35 Laboratory results interpreted by me: 01/30/20 01/30/20 01/30/20 17:49 18:35 18:35 WBC 12.6 H RBC 2.60 L Hgb 9.8 L Hct 29.2 L MCV 112 H MCH 37.8 H RDW 18.3 H Lymph % (Auto) 10.6 L Absolute Neuts (auto) 10.7 H Seg Neutrophils % 85.6 H Sodium 132.2 L Potassium 3.3 L Chloride 93 L Calcium 10.6 H Magnesium Total Bilirubin 5.9 H Direct Bilirubin 3.3 H AST 190 H ALT 71 H Alkaline Phosphatase 331 H Total Protein 6.1 L Albumin 2.4 L Urine Protein 100 H Urine Blood MODERATE H Urine Bilirubin SMALL H Urine Urobilinogen 4.0 H 01/30/20 18:35 WBC RBC Hgb Hct MCV MCH RDW Lymph % (Auto) Absolute Neuts (auto) Seg Neutrophils % Sodium Potassium Chloride Calcium Magnesium 1.5 L Total Bilirubin Direct Bilirubin AST ALT Alkaline Phosphatase Total Protein Albumin Urine Protein Urine Blood Urine Bilirubin Urine Urobilinogen Procedures - Paracentesis RLQ Time completed: 20:50 Consent obtained: Yes Paracentesis pre-procedure: Sterile PPE donned, Chloraprep applied Needle size: 18 Paracentesis location: RLQ Anesthetic type: 1% Lidocaine mL's of anesthetic: 2 Amount/type of drainage: 10cc yellow ascitic fluid, clear Number of attempts: 1 Ultrasound guided: Yes Complications: No Discharge - Discharge Clinical Impression: Nausea, vomiting, and diarrhea, Colitis, Hypokalemia Ascites Qualifiers: Ascites type: due to alcoholic cirrhosis Qualified Code(s): K70.31 - Alcoholic cirrhosis of liver with ascites Disposition: ADMITTED INPATIENT Admitting Provider: Ilsa (Hospitalist) Unit Admitted: Medical Floor
[2020-01-30] MEDS ORDERED: POTASSIUM CHLORIDE 20 MEQ PACKET PO ONE (21:05)
[2020-01-30 22:31] LABS: FLUID APPEARANCE CLEAR; FLUID COLOR YELLOW; FLUID SOURCE ASCITES; FLUID TYPE PERITONEAL; FLUID VISCOSITY LIQUID
--- NOTE | 2020-01-30 22:31 | RADIOLOGY REPORT (SQ) ---
EXAM DESCRIPTION: CT ABDOMEN PELVIS WITH IV CONTRAST COMPLETED DATE/TME: 01/30/2020 20:52 CLINICAL HISTORY: 55 years, Female, gen abd pain, hx acscites COMPARISON: Prior study from 07/31/2019 TECHNIQUE: Contrast enhanced CT of the abdomen/pelvis was acquired. Images were obtained after the administration of 51 mL of Omnipaque 350 intravenous contrast. Images stored on PACS. All CT scanners at this facility use dose modulation, iterative reconstruction, and/or weight based dosing when appropriate to reduce radiation dose to as low as reasonably achievable (ALARA). [facility]: Dose Right [facility]: CareDose [facility]: Dose Right [facility]: Teradose 4D [facility]: Smart Z[employer]bra LIMITATIONS: None. FINDINGS: Limited evaluation of the lower chest reveals small bilateral pleural effusions with bibasilar atelectasis. The liver is diffusely low in attenuation. No obvious focal liver lesions are appreciated. However, there are regional areas of more intermediate attenuation about the periphery of the right hepatic lobe. Spleen, pancreas, and both adrenal glands appear normal. Gallbladder wall appears mildly thickened. No significant intrahepatic or common bile duct dilatation. Both kidneys enhance symmetrically. No hydronephrosis or hydroureter. The urinary bladder is collapsed, thus its evaluation is limited. Uterus is not well-visualized. Right ovary shows no suspicious abnormality. The left ovary contains a fluid density lesion measuring 3.1 x 3.0 cm in size on image 72 of series 3. Scattered colonic diverticula are noted. In addition, there is diffuse wall thickening involving the colon as well as the small bowel. No evidence of bowel obstruction. A moderately sized hiatal hernia is noted also containing fat and fluid. Calcifications are evident about the abdominal aorta and proximal iliac vessels. No lymphadenopathy is appreciated. There is a large amount of ascites. Bone windows show no destructive osseous lesions. IMPRESSION: Severe hepatic steatosis with large volume ascites. Diffuse circumferential colonic and small bowel wall thickening, suspicious for portal hypertensive colopathy/enteropathy. However, a superimposed infectious/inflammatory enteritis/colitis would be difficult to exclude. Gallbladder wall thickening, likely related to underlying chronic liver disease. Moderate hiatal hernia also containing fat and fluid. Small bilateral pleural effusions. 3.1 cm benign appearing ovarian cyst. Recommend follow-up pelvic US in 6-12 months. Reference: J Am Frank Radiol 2013;10:675-681 TECHNICAL DOCUMENTATION: Quality ID # 436: Final reports with documentation of one or more dose reduction techniques (e.g., Automated exposure control, adjustment of the mA and/or kV according to patient size, use of iterative reconstruction technique) copyright 2011 [employer]- All Rights Reserved
[2020-01-30] MEDS ORDERED: PANTOPRAZOLE SODIUM 40 MG VIAL IV ONE (22:37)
[2020-01-31 00:54] LABS: PHOSPHORUS 4.1 mg/dL (2.5-4.5)
[2020-01-31 01:00] LABS: INTERNATIONAL RATION (INR) 1.66; PROTHROMBIN TIME 19.8 SEC (11.4-15.4)
[2020-01-31 01:07] LABS: PARTIAL THROMBOPLASTIN TIME 32.1 SEC (23.5-35.8)
[2020-01-31] MEDS ORDERED: ONDANSETRON HCL INJ/PF 4 MG/2 ML SDV IV PRN (01:27)
[2020-01-31] MEDS ORDERED: DEXTROSE 50%-WATER 25 GM/50 ML DISP.SYRIN IV PRN ×2 (01:33)
[2020-01-31] MEDS ORDERED: DEXTROSE 40% GEL 15 GM TUBE PO PRN ×2 (01:33)
[2020-01-31] MEDS ORDERED: GLUCAGON,HUMAN RECOMB 1 MG INJ SUBCUT PRN (01:33)
--- NOTE | 2020-01-31 01:43 | PDOC H&P ---
History of Present Illness Admission Date/PCP: 01/30/20 23:22 History of Present Illness: STEPHANIE MONTELONGO is a 55 year old female with no primary care provider who has a history of heavy alcohol consumption but says she is only drank once in the past month. She presents with 4 days of abdominal swelling and nausea. She says she is not urinated in the past day. She says she started feeling poorly about a week ago and has not eaten very much but about 4 days ago her belly started to swell up. She has not been febrile. She said her abdomen is uncomfortable but it does not hurt. She was seen here back in October and was sent to [facility] due to GI bleeding with concerns for esophageal varices. She says she was told at that time but she had some problems with her liver but she does not remember anything specifically. She takes no medications at home. She had some abdominal distention and had a CT scan that showed severe hepatic steatosis with a large volume of ascites. Her bilirubin was elevated and her coagulation studies were abnormal. She is not encephalopathic at this time. The transfer center at [facility] was contacted so that a liver specialist could review the case and they said she did not meet criteria for transfer at this time I recommended she be treated with steroids. Past Medical History Endocrine Medical History: Reports: Hypothyroidism Malignancy Medical History: Reports: Breast Cancer - recently diagnosed in 2019; untreated Social History Smoking Status: Current Every Day Smoker Electronic Cigarette use?: No Family History Family History: Reviewed & Not Pertinent, Malignancy Parental Family History Reviewed: Yes Children Family History Reviewed: Yes Sibling(s) Family History Reviewed.: Yes Medication/Allergy Home Medications: No Home Medications 08/24/19 Allergies/Adverse Reactions: No Known Allergies Allergy (Verified 01/30/20 17:29) Review of Systems All systems: reviewed and no additional remarkable complaints except as stated - All systems were reviewed and were negative except as noted in the HPI Physical Exam Vital Signs: Temp Pulse Resp BP Pulse Ox 98.1 F 100 18 97/68 L 96 01/30/20 23:35 01/30/20 23:35 01/30/20 23:35 01/30/20 23:35 01/30/20 23:35 Intake & Output 01/29/20 01/30/20 01/31/20 06:59 06:59 06:59 Intake Total 1050 Balance 1050 Weight 45.5 kg General appearance: PRESENT: no acute distress, cooperative, disheveled, thin Head exam: PRESENT: atraumatic, normocephalic Eye exam: PRESENT: EOMI, PERRLA, scleral icterus. ABSENT: conjunctival injection, nystagmus Ear exam: PRESENT: normal external ear exam Mouth exam: PRESENT: dry mucosa, neck supple Throat exam: ABSENT: post pharyngeal erythema Neck exam: PRESENT: full ROM. ABSENT: carotid bruit, JVD, lymphadenopathy, meningismus, tenderness, thyromegaly Respiratory exam: PRESENT: clear to auscultation valentin, symmetrical, unlabored. ABSENT: accessory muscle use, chest wall tenderness, crackles, prolonged expiratory phas, rhonchi, tachypnea, wheezes Cardiovascular exam: PRESENT: RRR, +S1, +S2 Pulses: PRESENT: normal carotid pulses Vascular exam: PRESENT: normal capillary refill GI/Abdominal exam: PRESENT: ascites, distended, normal bowel sounds, soft. ABSENT: guarding, rebound, tenderness Extremities exam: ABSENT: clubbing, pedal edema Musculoskeletal exam: ABSENT: deformity, normal inspection Neurological exam: PRESENT: alert, awake, oriented to person, oriented to place, oriented to situation, CN II-XII grossly intact. ABSENT: motor sensory deficit Psychiatric exam: PRESENT: flat affect Skin exam: PRESENT: dry, jaundice, warm Results Laboratory Results: 01/30/20 18:35 01/30/20 18:35 01/30/20 01/30/20 01/30/20 17:49 18:35 18:35 WBC 12.6 H RBC 2.60 L Hgb 9.8 L Hct 29.2 L MCV 112 H MCH 37.8 H MCHC 33.6 RDW 18.3 H Plt Count 237 Seg Neutrophils % 85.6 H Sodium 132.2 L Potassium 3.3 L Chloride 93 L Carbon Dioxide 27 Anion Gap 12 BUN 7 Creatinine 0.59 Est GFR ( Amer) > 60 Glucose 101 Calcium 10.6 H Phosphorus Magnesium Total Bilirubin 5.9 H AST 190 H Alkaline Phosphatase 331 H Ammonia Total Protein 6.1 L Albumin 2.4 L Lipase 32.2 Urine Color HORTENSIA Urine Appearance CLOUDY Urine pH 5.0 Ur Specific [place] 1.025 Urine Protein 100 H Urine Glucose (UA) NEGATIVE Urine Ketones NEGATIVE Urine Blood MODERATE H Urine Nitrite NEGATIVE Ur Leukocyte Esterase NEGATIVE Urine WBC (Auto) 5 Urine RBC (Auto) 1 Fluid Type Fluid Source Fluid Color Fluid Appearance Fluid Viscosity Fluid WBC Fluid RBC 01/30/20 01/30/20 01/30/20 18:35 18:35 21:29 WBC RBC Hgb Hct MCV MCH MCHC RDW Plt Count Seg Neutrophils % Sodium Potassium Chloride Carbon Dioxide Anion Gap BUN Creatinine Est GFR ( Amer) Glucose Calcium Phosphorus 4.1 Magnesium 1.5 L Total Bilirubin AST Alkaline Phosphatase Ammonia 20.5 Total Protein Albumin Lipase Urine Color Urine Appearance Urine pH Ur Specific [place] Urine Protein Urine Glucose (UA) Urine Ketones Urine Blood Urine Nitrite Ur Leukocyte Esterase Urine WBC (Auto) Urine RBC (Auto) Fluid Type Cancelled Fluid Source Cancelled Fluid Color Cancelled Fluid Appearance Cancelled Fluid Viscosity Cancelled Fluid WBC Cancelled Fluid RBC Cancelled 01/30/20 21:57 WBC RBC Hgb Hct MCV MCH MCHC RDW Plt Count Seg Neutrophils % Sodium Potassium Chloride Carbon Dioxide Anion Gap BUN Creatinine Est GFR ( Amer) Glucose Calcium Phosphorus Magnesium Total Bilirubin AST Alkaline Phosphatase Ammonia Total Protein Albumin Lipase Urine Color Urine Appearance Urine pH Ur Specific [place] Urine Protein Urine Glucose (UA) Urine Ketones Urine Blood Urine Nitrite Ur Leukocyte Esterase Urine WBC (Auto) Urine RBC (Auto) Fluid Type PERITONEAL Fluid Source ASCITES Fluid Color YELLOW Fluid Appearance CLEAR Fluid Viscosity LIQUID Fluid WBC 3 Fluid RBC 53 01/30/20 18:35 CK-MB (CK-2) 0.67 Impressions: Acute Abdomen Series 01/30/20 17:35 IMPRESSION: NONSPECIFIC BOWEL GAS PATTERN.Few scattered small bowel loops with air fluid levels. Abdomen/Pelvis CT 01/30/20 20:52 IMPRESSION: Severe hepatic steatosis with large volume ascites. Diffuse circumferential colonic and small bowel wall thickening, suspicious for portal hypertensive colopathy/enteropathy. However, a superimposed infectious/inflammatory enteritis/colitis would be difficult to exclude. Gallbladder wall thickening, likely related to underlying chronic liver disease. Moderate hiatal hernia also containing fat and fluid. Small bilateral pleural effusions. 3.1 cm benign appearing ovarian cyst. Recommend follow-up pelvic US in 6-12 months. Reference: J Am Frank Radiol 2013;10:675-681 TECHNICAL DOCUMENTATION: Quality ID # 436: Final reports with documentation of one or more dose reduction techniques (e.g., Automated exposure control, adjustment of the mA and/or kV according to patient size, use of iterative reconstruction technique) copyright 2011 [employer]- All Rights Reserved Assessment and Plan - Diagnosis (1) Acute liver failure Qualifiers: Hepatic coma status: without hepatic coma Qualified Code(s): K72.00 - Acute and subacute hepatic failure without coma Is this a current diagnosis for this admission?: Yes Plan: Apparently [facility] said she does need to be transferred because her INR is less than 2 and she is not encephalopathic. I will treat her with prednisolone 40 mg a day. We will get a paracentesis. Think part of the reason she is not urinated is a lot of that fluid is gone in her belly, but also she is probably got some compression of her ureters with all the fluid in her abdomen. Anticipate this will resolve with removal of the pressure via paracentesis. We will monitor the trend in her coagulation studies, her bilirubin, will also check an ammonia level to see if this is elevated and what the trend is. - Time Time Spent with patient: 35 or more minutes Anticipated Discharge Disposition: Pending clinical course Anticipated Discharge Timeframe: Pending clinical course - Inpatient Certification Based on my medical assessment, after consideration of the patient's comorbidities, presenting symptoms, or acuity I expect that the services needed warrant INPATIENT care.: Yes I certify that my determination is in accordance with my understanding of Medicare's requirements for reasonable and necessary INPATIENT services [42 CFR 412.3e].: Yes Medical Necessity: Need Close Monitoring Due to Risk of Patient Decompensation, Need For Continuous Telemetry Monitoring, Need for Surgery, Risk of Complication if Not Cared For in Hospital
[2020-01-31] MEDS ORDERED: PREDNISOLONE SOD PHOS 15 MG/5 ML ORAL SYRING PO ONE (01:45)
[2020-01-31] MEDS: MAGNESIUM SULFATE/D5W 1 GM/100 ML RTUPB IV SCH ×2 (02:11→03:25)
[2020-01-31 09:29] LABS: ABSOLUTE BASOPHILS # (AUTO) 0.1 10^3/uL (0.0-0.2); ABSOLUTE LYMPHOCYTES (AUTO) 0.7 10^3/uL (0.5-4.7); ABSOLUTE MONOCYTES (AUTO) 0.2 10^3/uL (0.1-1.4); ABSOLUTE NEUT (AUTO) 7.4 10^3/uL (1.7-8.2); HEMATOCRIT 24.6 % (36.0-47.0); HEMOGLOBIN 8.3 g/dL (12.0-15.5); LYMPHOCYTES % (AUTO) 8.8 % (13-45); MEAN CORPUSCULAR HEMOGLOBIN 38.1 pg (27.0-33.4); MEAN CORPUSCULAR HGB CONC 33.6 g/dL (32.0-36.0); MEAN CORPUSCULAR VOLUME 113 fl (80-97); MONOCYTES % (AUTO) 2.6 % (3-13); PLATELET COUNT 203 10^3/uL (150-450); RED BLOOD COUNT 2.17 10^6/uL (3.72-5.28); RED CELL DISTRIBUTION WIDTH 18.4 % (11.5-14.0); SEGMENTED NEUTROPHILS % (AUTO) 87.6 % (42-78); TOTAL CELLS COUNTED % (AUTO) 100 %; WHITE BLOOD COUNT 8.4 10^3/uL (4.0-10.5)
[2020-01-31 10:02] LABS: ALBUMIN 1.8 g/dL (3.5-5.0); ALKALINE PHOSPHATASE 257 U/L (38-126); ANION GAP 7 (5-19); ASPARTATE AMINO TRANSFERASE 134 U/L (14-36); BILIRUBIN,DIRECT 2.1 mg/dL (0.0-0.4); BLOOD UREA NITROGEN 7 mg/dL (7-20); CALCIUM 9.2 mg/dL (8.4-10.2); CARBON DIOXIDE 26 mmol/L (22-30); CHLORIDE 96 mmol/L (98-107); GLUCOSE 131 mg/dL (75-110); POTASSIUM 3.5 mmol/L (3.6-5.0); TOTAL PROTEIN 5.1 g/dL (6.3-8.2)
[2020-01-31 10:18] LABS: ANISOCYTOSIS 1+; PLATELET CLUMPS PRESENT; PLATELET COMMENT ADEQUATE; POLYCHROMASIA SLIGHT; TARGET CELLS 1+; TOXIC VACUOLATION PRESENT
[2020-01-31 10:28] LABS: BILIRUBIN,TOTAL 3.4 mg/dL (0.2-1.3)
--- NOTE | 2020-01-31 11:45 | RADIOLOGY REPORT (SQ) ---
EXAM DESCRIPTION: U/S ABD PARACENTESIS IMAGES COMPLETED DATE/TIME: 01/31/2020 11:37 am REASON FOR STUDY: ascites COMPARISON 08/24/2019 LIMITATIONS: None. PROCEDURE: After obtaining informed consent, the patient was brought to the ultrasound suite. The p rocedure was performed with the patient on a gurney. Ultrasound was used to identify a prominent poc ket of ascites in the right lower quadrant. An appropriate access site was selected. The patient wa s prepped and draped in usual sterile fashion. The access site was anesthetized with 10 mL 1% lidoc shay. A [id number] needle was advanced into the fluid. After aspiration of fluid the needle, t he catheter was advanced off the needle into the fluid. A total of 1,700 mL of clear, straw-colored fluid was removed. The patient tolerated the procedure well left the department in satisfactory condi tion. IMPRESSION: Successful ultrasound-guided paracentesis COMMENT: Patient medication list reviewed: Yes- Quality ID# [id number]:Eligible professional attests to doc umenting in the medical record they obtained, updated, or reviewed the patient's current medications. TECHNICAL DOCUMENTATION: JOB ID: [id number] 2010 [employer]- All Rights Reserved Reading location - IP/workstation name: [email or web address]
[2020-01-31 13:08] LABS: FLUID SOURCE ASCITES
[2020-01-31 13:09] LABS: FLUID COLOR YELLOW; FLUID TYPE PERITONEAL
[2020-01-31 13:11] LABS: FLUID APPEARANCE CLEAR; FLUID VISCOSITY LIQUID
[2020-01-31 14:31] LABS: PATH REVIEW PATHOLOGIST REVIEWED
[2020-01-31] MEDS: CEFTRIAXONE 2 GM/D5W RTU 2 GM/50 ML RTUPB IV SCH (15:10)
[2020-01-31] MEDS: PANTOPRAZOLE SODIUM 20 MG TABLET.DR PO SCH (15:45)
[2020-01-31] MEDS: TRAMADOL HCL 50 MG TABLET PO PRN (16:48)
[2020-01-31] MEDS: PREDNISOLONE SOD PHOS 15 MG/5 ML ORAL SYRING PO SCH (21:31)
[2020-02-01] MEDS: PANTOPRAZOLE SODIUM 20 MG TABLET.DR PO SCH (05:27)
[2020-02-01 05:30] LABS: ABSOLUTE RETICS # 0.122 10^6/uL (0.028-0.122); HEMATOCRIT 25.2 % (36.0-47.0); HEMOGLOBIN 8.4 g/dL (12.0-15.5); MEAN CORPUSCULAR HEMOGLOBIN 37.4 pg (27.0-33.4); MEAN CORPUSCULAR HGB CONC 33.2 g/dL (32.0-36.0); MEAN CORPUSCULAR VOLUME 113 fl (80-97); PLATELET COUNT 180 10^3/uL (150-450); RED BLOOD COUNT 2.23 10^6/uL (3.72-5.28); RED CELL DISTRIBUTION WIDTH 18.2 % (11.5-14.0); RETICULOCYTE COUNT (AUTO) 5.48 % (0.66-2.85)
[2020-02-01 05:32] LABS: INTERNATIONAL RATION (INR) 1.59; PARTIAL THROMBOPLASTIN TIME 30.9 SEC (23.5-35.8); PROTHROMBIN TIME 19.1 SEC (11.4-15.4)
[2020-02-01 05:49] LABS: ALBUMIN 1.9 g/dL (3.5-5.0); ALKALINE PHOSPHATASE 237 U/L (38-126); ANION GAP 7 (5-19); ASPARTATE AMINO TRANSFERASE 129 U/L (14-36); BILIRUBIN,DIRECT 1.5 mg/dL (0.0-0.4); BILIRUBIN,TOTAL 2.3 mg/dL (0.2-1.3); BLOOD UREA NITROGEN 9 mg/dL (7-20); CALCIUM 8.4 mg/dL (8.4-10.2); CARBON DIOXIDE 27 mmol/L (22-30); CHLORIDE 96 mmol/L (98-107); GLUCOSE 124 mg/dL (75-110); IRON(TIBC) 64.6 ug/dL (37-170); POTASSIUM 3.6 mmol/L (3.6-5.0); TOTAL PROTEIN 5.1 g/dL (6.3-8.2)
[2020-02-01 06:55] LABS: FOLATE 5.95 ng/mL (>2.76)
[2020-02-01] MEDS: CEFTRIAXONE 2 GM/D5W RTU 2 GM/50 ML RTUPB IV SCH (10:00)
--- NOTE | 2020-02-01 13:03 | PDOC PROGRESS REPORT ---
Subjective Progress Note for:: 02/01/20 Subjective:: Patient does feel better today she has less abdominal pain. Reason For Visit: ACUTE LIVER FAILURE Physical Exam Vital Signs: Temp Pulse Resp BP Pulse Ox 97.5 F 89 18 103/76 98 02/01/20 11:40 02/01/20 11:40 02/01/20 11:40 02/01/20 11:40 02/01/20 11:40 Intake & Output 01/31/20 02/01/20 02/02/20 06:59 06:59 06:59 Intake Total 1250 275 290 Balance 1250 275 290 Weight 46.2 kg 48.7 kg General appearance: PRESENT: no acute distress, thin Head exam: PRESENT: atraumatic Eye exam: PRESENT: conjunctiva pale Neck exam: PRESENT: full ROM. ABSENT: JVD, tenderness Respiratory exam: PRESENT: clear to auscultation valentin, unlabored. ABSENT: accessory muscle use, rhonchi Cardiovascular exam: PRESENT: RRR, +S1, +S2 GI/Abdominal exam: PRESENT: ascites, soft, tenderness - Minimal Rectal exam: PRESENT: deferred Musculoskeletal exam: PRESENT: ambulatory Neurological exam: PRESENT: alert, awake, oriented to person, oriented to place, oriented to time, oriented to situation, other - No asterixis Psychiatric exam: PRESENT: appropriate affect Results Laboratory Results: 02/01/20 04:59 02/01/20 04:59 01/31/20 02/01/20 02/01/20 11:05 04:59 04:59 WBC 8.0 RBC 2.23 L Hgb 8.4 L Hct 25.2 L MCV 113 H MCH 37.4 H MCHC 33.2 RDW 18.2 H Plt Count 180 Retic Count (auto) 5.48 H Sodium 129.9 L Potassium 3.6 Chloride 96 L Carbon Dioxide 27 Anion Gap 7 BUN 9 Creatinine 0.63 Est GFR ( Amer) > 60 Glucose 124 H Calcium 8.4 Iron 64.6 TIBC 114 L % Saturation 57 Ferritin 1800.00 H Total Bilirubin 2.3 H AST 129 H Alkaline Phosphatase 237 H Ammonia Total Protein 5.1 L Albumin 1.9 L Vitamin B12 > 1000.0 H Folate 5.95 Fluid Type PERITONEAL Fluid Source ASCITES Fluid Color YELLOW Fluid Appearance CLEAR Fluid Viscosity LIQUID Fluid WBC 150 Fluid RBC 196 02/01/20 04:59 WBC RBC Hgb Hct MCV MCH MCHC RDW Plt Count Retic Count (auto) Sodium Potassium Chloride Carbon Dioxide Anion Gap BUN Creatinine Est GFR ( Amer) Glucose Calcium Iron TIBC % Saturation Ferritin Total Bilirubin AST Alkaline Phosphatase Ammonia 37.2 H Total Protein Albumin Vitamin B12 Folate Fluid Type Fluid Source Fluid Color Fluid Appearance Fluid Viscosity Fluid WBC Fluid RBC 01/30/20 17:49 Catheterized Urine Urine Culture - Final Escherichia Coli 01/30/20 18:35 CK-MB (CK-2) 0.67 Impressions: Acute Abdomen Series 01/30/20 17:35 IMPRESSION: NONSPECIFIC BOWEL GAS PATTERN.Few scattered small bowel loops with air fluid levels. Abdomen/Pelvis CT 01/30/20 20:52 IMPRESSION: Severe hepatic steatosis with large volume ascites. Diffuse circumferential colonic and small bowel wall thickening, suspicious for portal hypertensive colopathy/enteropathy. However, a superimposed infectious/inflammatory enteritis/colitis would be difficult to exclude. Gallbladder wall thickening, likely related to underlying chronic liver disease. Moderate hiatal hernia also containing fat and fluid. Small bilateral pleural effusions. 3.1 cm benign appearing ovarian cyst. Recommend follow-up pelvic US in 6-12 months. Reference: J Am Frank Radiol 2013;10:675-681 TECHNICAL DOCUMENTATION: Quality ID # [id number]: Final reports with documentation of one or more dose reduction techniques (e.g., Automated exposure control, adjustment of the mA and/or kV according to patient size, use of iterative reconstruction technique) copyright 2011 [employer]- All Rights Reserved Paracentesis Ultrasound 01/31/20 00:00 IMPRESSION: Successful ultrasound-guided paracentesis Assessment and Plan - Diagnosis (1) Cirrhosis of liver Qualifiers: Hepatic cirrhosis type: alcoholic cirrhosis Is this a current diagnosis for this admission?: Yes (2) Protein-calorie malnutrition, moderate Is this a current diagnosis for this admission?: Yes Plan: Secondary to underlying liver disease (3) Acute liver failure Qualifiers: Hepatic coma status: without hepatic coma Qualified Code(s): K72.00 - Acute and subacute hepatic failure without coma Is this a current diagnosis for this admission?: Yes Plan: Her liver function test appeared to be improving. Total bilirubin is down to 2.3 and AST and ALT continue to improve albeit slowly. Her ammonia is noted to be elevated however patient is not encephalopathic and will stop monitoring this unless clinically indicated. Iron studies are pretty benign despite the gross macrocytosis. She is anemic as to be expected however hemoglobin is stable and there is no evidence of any active bleeding. Patient will need to follow-up with a line department supervisor as outpatient as I am not sure what the status of her work-up with his cirrhosis is. She tells me she has not been seen by an outpatient line department supervisor. (4) Acute UTI (urinary tract infection) Is this a current diagnosis for this admission?: Yes Plan: Secondary to E. coli. We will continue with ceftriaxone for now. There is no evidence of SBP at this time - Plan Summary Summary: CT scan of the abdomen also shows benign appearing ovarian cyst we recommended follow-up of pelvic ultrasound in 6 to 12 months. There is a diffuse comes for initial colonic and small bowel wall thickening suspicious for poor hypertensive colopathyenteropathy with a possible superimposed infectious inflammatory enteritis or colitis. - Time Time Spent with patient: 25-34 minutes Medications reviewed and adjusted accordingly: Yes Anticipated Discharge Disposition: Home, Self Care Anticipated Discharge Timeframe: within 48 hours
[2020-02-01] MEDS: PREDNISOLONE SOD PHOS 15 MG/5 ML ORAL SYRING PO SCH (21:28)
[2020-02-02] MEDS ORDERED: MELATONIN 5 MG TABLET PO PRN (00:11)
[2020-02-02] MEDS: PANTOPRAZOLE SODIUM 20 MG TABLET.DR PO SCH (05:21)
[2020-02-02 06:37] LABS: INTERNATIONAL RATION (INR) 1.61; PROTHROMBIN TIME 19.3 SEC (11.4-15.4)
[2020-02-02 06:38] LABS: PARTIAL THROMBOPLASTIN TIME 31.1 SEC (23.5-35.8)
[2020-02-02 06:59] LABS: ALKALINE PHOSPHATASE 254 U/L (38-126); ANION GAP 7 (5-19); ASPARTATE AMINO TRANSFERASE 125 U/L (14-36); BILIRUBIN,DIRECT 1.3 mg/dL (0.0-0.4); BLOOD UREA NITROGEN 8 mg/dL (7-20); CARBON DIOXIDE 27 mmol/L (22-30); CHLORIDE 94 mmol/L (98-107); GLUCOSE 129 mg/dL (75-110); POTASSIUM 3.6 mmol/L (3.6-5.0); TOTAL PROTEIN 5.2 g/dL (6.3-8.2)
[2020-02-02] MEDS: CEFTRIAXONE 2 GM/D5W RTU 2 GM/50 ML RTUPB IV SCH (10:26)
--- NOTE | 2020-02-02 17:41 | PDOC PROGRESS REPORT ---
Subjective Progress Note for:: 02/02/20 Subjective:: Patient does feel better today she has minimal abdominal pain. He says her appetite is still poor Reason For Visit: ACUTE LIVER FAILURE Physical Exam Vital Signs: Temp Pulse Resp BP Pulse Ox 98.0 F 104 H 16 98/68 L 97 02/02/20 12:05 02/02/20 14:00 02/02/20 12:05 02/02/20 12:05 02/02/20 12:05 Intake & Output 02/01/20 02/02/20 02/03/20 06:59 06:59 06:59 Intake Total 275 1125 710 Output Total 240 Balance 275 885 710 Weight 48.7 kg 50.7 kg General appearance: PRESENT: no acute distress, thin, other - Cachectic Head exam: PRESENT: atraumatic, normocephalic Eye exam: PRESENT: conjunctiva pink, EOMI, PERRLA. ABSENT: scleral icterus Ear exam: PRESENT: normal external ear exam Mouth exam: PRESENT: moist, tongue midline Neck exam: ABSENT: carotid bruit, JVD, lymphadenopathy, thyromegaly Respiratory exam: PRESENT: clear to auscultation valentin, unlabored. ABSENT: rales, rhonchi, wheezes Cardiovascular exam: PRESENT: RRR, +S1, +S2. ABSENT: diastolic murmur, rubs, systolic murmur Pulses: PRESENT: normal dorsalis pedis pul Vascular exam: PRESENT: normal capillary refill GI/Abdominal exam: PRESENT: normal bowel sounds, soft. ABSENT: distended, guarding, mass, organolmegaly, rebound, tenderness Rectal exam: PRESENT: deferred Extremities exam: PRESENT: full ROM. ABSENT: calf tenderness, clubbing, pedal edema Neurological exam: PRESENT: alert, awake, oriented to person, oriented to place, oriented to time, oriented to situation, CN II-XII grossly intact. ABSENT: motor sensory deficit Psychiatric exam: PRESENT: appropriate affect, normal mood. ABSENT: homicidal ideation, suicidal ideation Skin exam: PRESENT: dry, intact, warm. ABSENT: cyanosis, rash Results Laboratory Results: 02/01/20 04:59 02/02/20 06:04 02/02/20 02/02/20 06:04 06:04 Sodium 127.8 L Potassium 3.6 Chloride 94 L Carbon Dioxide 27 Anion Gap 7 BUN 8 Creatinine 0.54 Est GFR ( Amer) > 60 Glucose 129 H Calcium 8.0 L Total Bilirubin 2.0 H AST 125 H Alkaline Phosphatase 254 H Ammonia 40.1 H Total Protein 5.2 L Albumin 2.0 L 01/30/20 18:35 CK-MB (CK-2) 0.67 Impressions: Acute Abdomen Series 01/30/20 17:35 IMPRESSION: NONSPECIFIC BOWEL GAS PATTERN.Few scattered small bowel loops with air fluid levels. Abdomen/Pelvis CT 01/30/20 20:52 IMPRESSION: Severe hepatic steatosis with large volume ascites. Diffuse circumferential colonic and small bowel wall thickening, suspicious for portal hypertensive colopathy/enteropathy. However, a superimposed infectious/inflammatory enteritis/colitis would be difficult to exclude. Gallbladder wall thickening, likely related to underlying chronic liver disease. Moderate hiatal hernia also containing fat and fluid. Small bilateral pleural effusions. 3.1 cm benign appearing ovarian cyst. Recommend follow-up pelvic US in 6-12 months. Reference: J Am Frank Radiol 2013;10:[id number] TECHNICAL DOCUMENTATION: Quality ID # [id number]: Final reports with documentation of one or more dose reduction techniques (e.g., Automated exposure control, adjustment of the mA and/or kV according to patient size, use of iterative reconstruction technique) copyright 2011 [employer]- All Rights Reserved Paracentesis Ultrasound 01/31/20 00:00 IMPRESSION: Successful ultrasound-guided paracentesis Assessment and Plan - Diagnosis (1) Cirrhosis of liver Qualifiers: Hepatic cirrhosis type: alcoholic cirrhosis Is this a current diagnosis for this admission?: Yes Plan: Patient needs outpatient follow-up with GI further evaluation and work-up as appropriate (2) Protein-calorie malnutrition, moderate Is this a current diagnosis for this admission?: Yes Plan: Secondary to underlying liver disease Dietitian consultation has been requested (3) Acute liver failure Qualifiers: Hepatic coma status: without hepatic coma Qualified Code(s): K72.00 - Acute and subacute hepatic failure without coma Is this a current diagnosis for this admission?: Yes Plan: Her liver function test appeared to be improving. Total bilirubin is down to 2.3 and AST and ALT continue to improve albeit slowly. Her ammonia is noted to be elevated however patient is not encephalopathic and will stop monitoring this unless clinically indicated. Iron studies are pretty benign despite the gross macrocytosis. She is anemic as to be expected however hemoglobin is stable and there is no evidence of any active bleeding. Patient will need to follow-up with a ballet master/mistress as outpatient as I am not sure what the status of her work-up with his cirrhosis is. She tells me she has not been seen by an outpatient ballet master/mistress. 02/01 her liver function tests continue to improve. Patient had been started on prednisolone on admission and have taken the liberty to discontinue this at this time. We will continue to monitor her liver function test (4) Acute UTI (urinary tract infection) Is this a current diagnosis for this admission?: Yes Plan: Secondary to E. coli. We will continue with ceftriaxone for now. There is no evidence of SBP at this time This can be changed over to oral antibiotics at discharge - Plan Summary Summary: CT scan of the abdomen also shows benign appearing ovarian cyst we recommended follow-up of pelvic ultrasound in 6 to 12 months. There is a diffuse comes for initial colonic and small bowel wall thickening suspicious for poor hypertensive colopathyenteropathy with a possible superimposed infectious inflammatory enteritis or colitis. - Time Anticipated Discharge Disposition: Home, Self Care Anticipated Discharge Timeframe: within 48 hours - Inpatient Certification Based on my medical assessment, after consideration of the patient's comorbidities, presenting symptoms, or acuity I expect that the services needed warrant INPATIENT care.: Yes Medical Necessity: Need for IV Antibiotics
[2020-02-02] MEDS: TRAMADOL HCL 50 MG TABLET PO PRN (21:32)
[2020-02-03] MEDS: PANTOPRAZOLE SODIUM 20 MG TABLET.DR PO SCH (05:22)
[2020-02-03 05:32] LABS: ABSOLUTE LYMPHOCYTES (AUTO) 1.8 10^3/uL (0.5-4.7); ABSOLUTE MONOCYTES (AUTO) 0.5 10^3/uL (0.1-1.4); ABSOLUTE NEUT (AUTO) 6.5 10^3/uL (1.7-8.2); BASOPHILS % (AUTO) 0.4 % (0-2); EOSINOPHILS % (AUTO) 0.1 % (0-6); HEMATOCRIT 27.5 % (36.0-47.0); HEMOGLOBIN 9.1 g/dL (12.0-15.5); LYMPHOCYTES % (AUTO) 20.1 % (13-45); MEAN CORPUSCULAR HEMOGLOBIN 37.6 pg (27.0-33.4); MEAN CORPUSCULAR HGB CONC 33.1 g/dL (32.0-36.0); MEAN CORPUSCULAR VOLUME 114 fl (80-97); MONOCYTES % (AUTO) 5.3 % (3-13); PLATELET COUNT 113 10^3/uL (150-450); RED BLOOD COUNT 2.42 10^6/uL (3.72-5.28); RED CELL DISTRIBUTION WIDTH 18.3 % (11.5-14.0); SEGMENTED NEUTROPHILS % (AUTO) 74.1 % (42-78); TOTAL CELLS COUNTED % (AUTO) 100 %; WHITE BLOOD COUNT 8.8 10^3/uL (4.0-10.5)
[2020-02-03 05:43] LABS: INTERNATIONAL RATION (INR) 1.47
[2020-02-03 05:44] LABS: PARTIAL THROMBOPLASTIN TIME 32.2 SEC (23.5-35.8)
[2020-02-03 05:53] LABS: ALBUMIN 1.9 g/dL (3.5-5.0); ALKALINE PHOSPHATASE 251 U/L (38-126); ANION GAP 5 (5-19); ASPARTATE AMINO TRANSFERASE 138 U/L (14-36); BILIRUBIN,DIRECT 1.2 mg/dL (0.0-0.4); BLOOD UREA NITROGEN 6 mg/dL (7-20); CALCIUM 7.9 mg/dL (8.4-10.2); CARBON DIOXIDE 29 mmol/L (22-30); CHLORIDE 94 mmol/L (98-107); GLUCOSE 84 mg/dL (75-110); POTASSIUM 3.2 mmol/L (3.6-5.0); TOTAL PROTEIN 5.1 g/dL (6.3-8.2)
[2020-02-03 06:25] LABS: TOXIC GRANULATION SLIGHT
[2020-02-03 06:26] LABS: PLATELET COMMENT DECREASED; SCHISTOCYTES SLIGHT
[2020-02-03] MEDS: CEFTRIAXONE 2 GM/D5W RTU 2 GM/50 ML RTUPB IV SCH (10:38)
--- NOTE | 2020-02-03 21:40 | PDOC PROGRESS REPORT ---
Subjective Progress Note for:: 02/03/20 Subjective:: The patient was seen and examined at bedside. Her energy has improved but she still has poor appetite. He says that her belly seems to be smaller than when she came in. She denies any episodes of nausea vomiting abdominal pain, pain on urination. No melena or hematochezia no hematemesis Reason For Visit: ACUTE LIVER FAILURE Physical Exam Vital Signs: Temp Pulse Resp BP Pulse Ox 98.0 F 98 16 90/64 L 97 02/03/20 20:03 02/03/20 20:03 02/03/20 20:03 02/03/20 20:03 02/03/20 20:03 Intake & Output 02/02/20 02/03/20 02/04/20 06:59 06:59 06:59 Intake Total 1125 1395 790 Output Total 240 Balance 885 1395 790 Weight 50.7 kg 50.7 kg 50.7 kg General appearance: PRESENT: no acute distress, cooperative Head exam: PRESENT: atraumatic, normocephalic Eye exam: PRESENT: EOMI, PERRLA. ABSENT: scleral icterus Mouth exam: PRESENT: moist Respiratory exam: PRESENT: clear to auscultation valentin, symmetrical, unlabored. ABSENT: crackles, rales, rhonchi, wheezes Cardiovascular exam: PRESENT: RRR, +S1, +S2 - normal. ABSENT: gallop, systolic murmur GI/Abdominal exam: PRESENT: ascites, distended - decreased from admission, normal bowel sounds. ABSENT: guarding, rebound, tenderness Extremities exam: PRESENT: +1 edema Musculoskeletal exam: PRESENT: ambulatory, full ROM Neurological exam: PRESENT: alert, awake, oriented to person, oriented to place, oriented to time Psychiatric exam: PRESENT: normal mood Results Laboratory Results: 02/03/20 04:45 02/03/20 04:45 02/03/20 02/03/20 04:45 04:45 WBC 8.8 RBC 2.42 L Hgb 9.1 L Hct 27.5 L MCV 114 H MCH 37.6 H MCHC 33.1 RDW 18.3 H Plt Count 113 L Seg Neutrophils % 74.1 Sodium 128.0 L Potassium 3.2 L Chloride 94 L Carbon Dioxide 29 Anion Gap 5 BUN 6 L Creatinine 0.50 L Est GFR ( Amer) > 60 Glucose 84 Calcium 7.9 L Total Bilirubin 2.0 H AST 138 H Alkaline Phosphatase 251 H Total Protein 5.1 L Albumin 1.9 L 01/31/20 11:05 Peritoneal Gram Stain - Final 01/30/20 21:57 Ascities Fluid Gram Stain - Final 01/30/20 21:57 Ascities Fluid Body Fluid Culture - Final NO AEROBIC OR ANAEROBIC ORGANISMS RECOVERED 01/30/20 18:35 CK-MB (CK-2) 0.67 Impressions: Acute Abdomen Series 01/30/20 17:35 IMPRESSION: NONSPECIFIC BOWEL GAS PATTERN.Few scattered small bowel loops with air fluid levels. Abdomen/Pelvis CT 01/30/20 20:52 IMPRESSION: Severe hepatic steatosis with large volume ascites. Diffuse circumferential colonic and small bowel wall thickening, suspicious for portal hypertensive colopathy/enteropathy. However, a superimposed infectious/inflammatory enteritis/colitis would be difficult to exclude. Gallbladder wall thickening, likely related to underlying chronic liver disease. Moderate hiatal hernia also containing fat and fluid. Small bilateral pleural effusions. 3.1 cm benign appearing ovarian cyst. Recommend follow-up pelvic US in 6-12 months. Reference: J Am Frank Radiol 2013;10:[id number] TECHNICAL DOCUMENTATION: Quality ID # [id number]: Final reports with documentation of one or more dose reduction techniques (e.g., Automated exposure control, adjustment of the mA and/or kV according to patient size, use of iterative reconstruction technique) copyright 2011 [employer]- All Rights Reserved Paracentesis Ultrasound 01/31/20 00:00 IMPRESSION: Successful ultrasound-guided paracentesis Assessment and Plan - Diagnosis (1) Cirrhosis of liver Qualifiers: Hepatic cirrhosis type: unspecified hepatic cirrhosis Ascites presence: with ascites Qualified Code(s): K74.60 - Unspecified cirrhosis of liver; R18.8 - Other ascites Is this a current diagnosis for this admission?: Yes Plan: -Fairly new diagnosis has not been worked up for possible causes. He has not seen a aircraft mechanic structures outpatient -She admits admits to drinking 4 glasses of wine per day for several years. Denies prior admission for alcohol withdrawal -No family history of liver failure or liver cancer no prior hepatitis diagnosis -Liver enzymes are improving, ammonia elevated 41 but no signs of encephalopathy, INR mildly prolonged but no signs of bleeding -Ascites Gram stain and culture showed no organism - MELD score 21 points 19.6% 3 month mortality -She was started on prednisolone in the ICU this was stopped yesterday -Plan is to discharge her once her appetite has improved - would need to see a aircraft mechanic structures for further work-up regarding her liver cirrhosis -Advised to abstain from further alcohol consumption (2) Acute UTI (urinary tract infection) Is this a current diagnosis for this admission?: Yes Plan: -Urine culture grew E. coli, blood culture negative -afebrile with normal WBC count 8.8 -Received 4 doses of ceftriaxone -We will switch her to oral antibiotics likely by tomorrow (3) Hypokalemia Is this a current diagnosis for this admission?: Yes Plan: -Potassium today 3.2 replaced -We will continue to monitor and replace as needed (4) Increased ammonia level Is this a current diagnosis for this admission?: Yes Plan: -Ammonia level 40.1 no signs of encephalopathy -Will monitor for now no need for lactulose at this point (5) Ascites Qualifiers: Ascites type: other type Qualified Code(s): R18.8 - Other ascites Is this a current diagnosis for this admission?: Yes Plan: -Gram stain and culture of ascitic fluid did not grow any organism - SAAG score cannot be calculated pleural fluid was not sent for protein or albumin level -No signs of SBP for now (6) Hyponatremia Is this a current diagnosis for this admission?: Yes Plan: -Mild hyponatremia 128 -Likely dilutional hyponatremia from liver cirrhosis (7) Protein-calorie malnutrition, moderate Is this a current diagnosis for this admission?: Yes Plan: Secondary to underlying liver disease Dietitian consultation has been requested (8) Macrocytic anemia Is this a current diagnosis for this admission?: Yes Plan: -Hemoglobin stable at 9.1 no signs of melena hematochezia or hematemesis -Likely secondary to alcohol abuse or vitamin B12 deficiency -We will check B12 level - Plan Summary Summary: CT scan of the abdomen also shows benign appearing ovarian cyst we recommended follow-up of pelvic ultrasound in 6 to 12 months. There is a diffuse comes for initial colonic and small bowel wall thickening suspicious for poor hypertensive colopathyenteropathy with a possible superimposed infectious inflammatory enteritis or colitis. - Time Time Spent with patient: 15-24 minutes Medications reviewed and adjusted accordingly: Yes Anticipated Discharge Disposition: to be determined Anticipated Discharge Timeframe: to be determined - Inpatient Certification Medical Necessity: Risk of Complication if Not Cared For in Hospital
[2020-02-04] MEDS: PANTOPRAZOLE SODIUM 20 MG TABLET.DR PO SCH (05:19)
[2020-02-04] MEDS: TRAMADOL HCL 50 MG TABLET PO PRN ×2 (08:36→21:51)
[2020-02-04] MEDS: CEFTRIAXONE 2 GM/D5W RTU 2 GM/50 ML RTUPB IV SCH (10:05)
[2020-02-04 10:19] LABS: ABSOLUTE BASOPHILS # (AUTO) 0.1 10^3/uL (0.0-0.2); ABSOLUTE LYMPHOCYTES (AUTO) 1.4 10^3/uL (0.5-4.7); ABSOLUTE MONOCYTES (AUTO) 0.6 10^3/uL (0.1-1.4); ABSOLUTE NEUT (AUTO) 6.5 10^3/uL (1.7-8.2); BASOPHILS % (AUTO) 0.9 % (0-2); EOSINOPHILS % (AUTO) 0.2 % (0-6); HEMATOCRIT 27.8 % (36.0-47.0); HEMOGLOBIN 9.2 g/dL (12.0-15.5); LYMPHOCYTES % (AUTO) 16.5 % (13-45); MEAN CORPUSCULAR HEMOGLOBIN 37.2 pg (27.0-33.4); MEAN CORPUSCULAR HGB CONC 33.1 g/dL (32.0-36.0); MEAN CORPUSCULAR VOLUME 112 fl (80-97); MONOCYTES % (AUTO) 7.5 % (3-13); PLATELET COUNT 119 10^3/uL (150-450); RED BLOOD COUNT 2.48 10^6/uL (3.72-5.28); RED CELL DISTRIBUTION WIDTH 19.5 % (11.5-14.0); SEGMENTED NEUTROPHILS % (AUTO) 74.9 % (42-78); TOTAL CELLS COUNTED % (AUTO) 100 %; WHITE BLOOD COUNT 8.7 10^3/uL (4.0-10.5)
[2020-02-04 10:20] LABS: ALBUMIN 1.8 g/dL (3.5-5.0); ALKALINE PHOSPHATASE 233 U/L (38-126); ANION GAP 5 (5-19); ASPARTATE AMINO TRANSFERASE 141 U/L (14-36); BILIRUBIN,DIRECT 1.4 mg/dL (0.0-0.4); BILIRUBIN,TOTAL 2.3 mg/dL (0.2-1.3); BLOOD UREA NITROGEN 5 mg/dL (7-20); CALCIUM 7.5 mg/dL (8.4-10.2); CARBON DIOXIDE 28 mmol/L (22-30); CHLORIDE 93 mmol/L (98-107); GLUCOSE 112 mg/dL (75-110); POTASSIUM 3.5 mmol/L (3.6-5.0); TOTAL PROTEIN 4.9 g/dL (6.3-8.2)
[2020-02-04 10:39] LABS: POLYCHROMASIA SLIGHT
[2020-02-04 10:40] LABS: ANISOCYTOSIS 2+; OVALOCYTES SLIGHT; PLATELET COMMENT DECREASED; PLATELET LARGE PRESENT; POIKILOCYTOSIS 2+; TARGET CELLS 2+; TEAR DROP CELLS 1+
--- NOTE | 2020-02-04 21:47 | PDOC PROGRESS REPORT ---
Subjective Progress Note for:: 02/04/20 Subjective:: Patient was seen and examined at bedside. No significant change in terms of her energy and appetite. No fever no nausea and vomiting, no melena hematochezia. She has not had a bowel movement for approximately 3 to 4 days. Reason For Visit: ACUTE LIVER FAILURE Physical Exam Vital Signs: Temp Pulse Resp BP Pulse Ox 98.2 F 72 18 100/72 94 02/04/20 16:10 02/04/20 16:10 02/04/20 16:10 02/04/20 16:10 02/04/20 16:10 Intake & Output 02/03/20 02/04/20 02/05/20 06:59 06:59 06:59 Intake Total 1395 1050 550 Output Total 100 Balance 1395 1050 450 Weight 50.7 kg 50.7 kg General appearance: PRESENT: no acute distress, cooperative Head exam: PRESENT: atraumatic, normocephalic Eye exam: PRESENT: EOMI, PERRLA Mouth exam: PRESENT: moist Neck exam: PRESENT: full ROM. ABSENT: JVD Respiratory exam: PRESENT: clear to auscultation valentin, symmetrical, unlabored Cardiovascular exam: PRESENT: RRR, +S1, +S2 Pulses: PRESENT: +2 pedal pulses bilateral Vascular exam: PRESENT: normal capillary refill GI/Abdominal exam: PRESENT: ascites, distended, soft. ABSENT: guarding, rebound, rigid, tenderness Rectal exam: PRESENT: deferred Extremities exam: ABSENT: calf tenderness, joint swelling, pedal edema Musculoskeletal exam: PRESENT: ambulatory, full ROM Neurological exam: PRESENT: alert, awake, oriented to person, oriented to place, oriented to time Psychiatric exam: PRESENT: normal mood Results Laboratory Results: 02/04/20 09:18 02/04/20 09:18 02/04/20 02/04/20 09:18 09:18 WBC 8.7 RBC 2.48 L Hgb 9.2 L Hct 27.8 L MCV 112 H MCH 37.2 H MCHC 33.1 RDW 19.5 H Plt Count 119 L Seg Neutrophils % 74.9 Sodium 126.1 L Potassium 3.5 L Chloride 93 L Carbon Dioxide 28 Anion Gap 5 BUN 5 L Creatinine 0.40 L Est GFR ( Amer) > 60 Glucose 112 H Calcium 7.5 L Total Bilirubin 2.3 H AST 141 H Alkaline Phosphatase 233 H Total Protein 4.9 L Albumin 1.8 L 01/31/20 11:05 Peritoneal Gram Stain - Final 01/31/20 11:05 Peritoneal Body Fluid Culture - Final NO AEROBIC OR ANAEROBIC ORGANISMS RECOVERED 01/30/20 18:35 CK-MB (CK-2) 0.67 Impressions: Acute Abdomen Series 01/30/20 17:35 IMPRESSION: NONSPECIFIC BOWEL GAS PATTERN.Few scattered small bowel loops with air fluid levels. Abdomen/Pelvis CT 01/30/20 20:52 IMPRESSION: Severe hepatic steatosis with large volume ascites. Diffuse circumferential colonic and small bowel wall thickening, suspicious for portal hypertensive colopathy/enteropathy. However, a superimposed infectious/inflammatory enteritis/colitis would be difficult to exclude. Gallbladder wall thickening, likely related to underlying chronic liver disease. Moderate hiatal hernia also containing fat and fluid. Small bilateral pleural effusions. 3.1 cm benign appearing ovarian cyst. Recommend follow-up pelvic US in 6-12 months. Reference: J Am Frank Radiol 2013;10:675-681 TECHNICAL DOCUMENTATION: Quality ID # 436: Final reports with documentation of one or more dose reduction techniques (e.g., Automated exposure control, adjustment of the mA and/or kV according to patient size, use of iterative reconstruction technique) copyright 2011 [employer]- All Rights Reserved Paracentesis Ultrasound 01/31/20 00:00 IMPRESSION: Successful ultrasound-guided paracentesis Assessment and Plan - Diagnosis (1) Cirrhosis of liver Qualifiers: Hepatic cirrhosis type: unspecified hepatic cirrhosis Ascites presence: with ascites Qualified Code(s): K74.60 - Unspecified cirrhosis of liver; R18.8 - Other ascites Is this a current diagnosis for this admission?: Yes Plan: -Fairly new diagnosis has not been worked up for possible causes. He has not seen a courtroom reporter outpatient -She admits admits to drinking 4 glasses of wine per day for several years. Denies prior admission for alcohol withdrawal -No family history of liver failure or liver cancer no prior hepatitis diagnosis -Liver enzymes stable -Ascites Gram stain and culture showed no organism. Pathology report reviewed no malignant cells seen - MELD score 21 points 19.6% 3 month mortality -She was started on prednisolone in the ICU this was stopped yesterday -Plan is to discharge her once her appetite has improved - would need to see a courtroom reporter for further work-up regarding her liver cirrhosis -Advised to abstain from further alcohol consumption (2) Acute UTI (urinary tract infection) Is this a current diagnosis for this admission?: Yes Plan: -Urine culture grew E. coli, blood culture negative -afebrile with normal WBC count 8.7 -Received 5 doses of ceftriaxone -We will switch her to oral antibiotics likely by tomorrow (3) Hypokalemia Is this a current diagnosis for this admission?: Yes Plan: - resolved K 3.5 (4) Increased ammonia level Is this a current diagnosis for this admission?: Yes Plan: - last level 41, no hepatic enceph - no BM x 3 days - will order lactulose - no need to recheck ammonia (5) Ascites Qualifiers: Ascites type: other type Qualified Code(s): R18.8 - Other ascites Is this a current diagnosis for this admission?: Yes Plan: -Gram stain and culture of ascitic fluid did not grow any organism - SAAG score cannot be calculated pleural fluid was not sent for protein or albumin level -No signs of SBP for now, no indication to retap abdomen (6) Hyponatremia Is this a current diagnosis for this admission?: Yes Plan: -Mild hyponatremia 128>126 -Likely dilutional hyponatremia from liver cirrhosis - will continue to monitor. She is not on a beta deneen (7) Protein-calorie malnutrition, moderate Is this a current diagnosis for this admission?: Yes Plan: Secondary to underlying liver disease Dietitian consultation has been requested (8) Macrocytic anemia Is this a current diagnosis for this admission?: Yes Plan: -Hemoglobin stable at 9.1 no signs of melena hematochezia or hematemesis -Likely secondary to alcohol abuse or vitamin B12 deficiency -b12 previously checked, normal - Plan Summary Summary: . - Time Time Spent with patient: 15-24 minutes Anticipated Discharge Disposition: Home with Home Health Anticipated Discharge Timeframe: within 48 hours - Inpatient Certification Medical Necessity: Risk of Complication if Not Cared For in Hospital
[2020-02-04] MEDS: LACTULOSE SYRUP 20 GM/30 ML UDCUP PO SCH (21:51)
[2020-02-05] MEDS: PANTOPRAZOLE SODIUM 20 MG TABLET.DR PO SCH (05:28)
[2020-02-05] MEDS: ONDANSETRON HCL INJ/PF 4 MG/2 ML SDV IV PRN ×2 (08:42→21:36)
[2020-02-05] MEDS: TRAMADOL HCL 50 MG TABLET PO PRN ×2 (08:43→21:35)
[2020-02-05] MEDS: CEFTRIAXONE 2 GM/D5W RTU 2 GM/50 ML RTUPB IV SCH (09:51)
[2020-02-05 11:42] LABS: ABSOLUTE MONOCYTES (AUTO) 0.8 10^3/uL (0.1-1.4); ABSOLUTE NEUT (AUTO) 5.7 10^3/uL (1.7-8.2); BASOPHILS % (AUTO) 0.2 % (0-2); EOSINOPHILS % (AUTO) 0.3 % (0-6); HEMATOCRIT 28.1 % (36.0-47.0); HEMOGLOBIN 9.4 g/dL (12.0-15.5); LYMPHOCYTES % (AUTO) 23.5 % (13-45); MEAN CORPUSCULAR HEMOGLOBIN 37.2 pg (27.0-33.4); MEAN CORPUSCULAR HGB CONC 33.4 g/dL (32.0-36.0); MEAN CORPUSCULAR VOLUME 111 fl (80-97); MONOCYTES % (AUTO) 9.3 % (3-13); PLATELET COUNT 105 10^3/uL (150-450); RED BLOOD COUNT 2.52 10^6/uL (3.72-5.28); RED CELL DISTRIBUTION WIDTH 18.6 % (11.5-14.0); SEGMENTED NEUTROPHILS % (AUTO) 66.7 % (42-78); TOTAL CELLS COUNTED % (AUTO) 100 %; WHITE BLOOD COUNT 8.6 10^3/uL (4.0-10.5)
[2020-02-05 11:54] LABS: ALBUMIN 1.8 g/dL (3.5-5.0); ALKALINE PHOSPHATASE 223 U/L (38-126); ANION GAP 5 (5-19); ASPARTATE AMINO TRANSFERASE 126 U/L (14-36); BILIRUBIN,DIRECT 1.6 mg/dL (0.0-0.4); BILIRUBIN,TOTAL 2.3 mg/dL (0.2-1.3); BLOOD UREA NITROGEN 5 mg/dL (7-20); CALCIUM 7.4 mg/dL (8.4-10.2); CARBON DIOXIDE 26 mmol/L (22-30); CHLORIDE 94 mmol/L (98-107); GLUCOSE 136 mg/dL (75-110); TOTAL PROTEIN 4.9 g/dL (6.3-8.2)
[2020-02-05 12:09] LABS: ANISOCYTOSIS 2+; PLATELET COMMENT DECREASED; POLYCHROMASIA SLIGHT; TARGET CELLS 1+
[2020-02-05] MEDS ORDERED: ALBUMIN HUMAN 12.5 GM/50 ML RTUINJ IV SCH ×2 (16:30→18:00)
--- NOTE | 2020-02-05 18:03 | PDOC PROGRESS REPORT ---
Subjective Progress Note for:: 02/05/20 Subjective:: Patient was seen and examined at bedside. Reports 4 episodes of bowel movement. She complains of mild suprapubic pain radiating to the back. Denies any nausea or vomiting. Feels a bit weak with low energy but not significantly worse. No hematochezia no melena Reason For Visit: ACUTE LIVER FAILURE Physical Exam Vital Signs: Temp Pulse Resp BP Pulse Ox 98.3 F 98 16 85/59 L 99 02/05/20 16:02 02/05/20 16:02 02/05/20 16:02 02/05/20 16:02 02/05/20 08:00 Intake & Output 02/04/20 02/05/20 02/06/20 06:59 06:59 06:59 Intake Total 1050 550 410 Output Total 100 Balance 1050 450 410 Weight 50.7 kg 49.8 kg 49.8 kg General appearance: PRESENT: no acute distress Head exam: PRESENT: atraumatic, normocephalic Eye exam: PRESENT: EOMI, PERRLA Mouth exam: PRESENT: moist Respiratory exam: PRESENT: clear to auscultation valentin, symmetrical, unlabored Cardiovascular exam: PRESENT: RRR, +S1, +S2 GI/Abdominal exam: PRESENT: ascites, distended, tenderness - Mild suprapubic tenderness. ABSENT: guarding, rebound Extremities exam: ABSENT: calf tenderness, joint swelling, +2 edema Musculoskeletal exam: PRESENT: ambulatory, full ROM Neurological exam: PRESENT: alert, awake, oriented to person, oriented to place, oriented to time Psychiatric exam: PRESENT: normal mood Results Laboratory Results: 02/05/20 11:00 02/05/20 11:10 02/05/20 02/05/20 11:00 11:10 WBC 8.6 RBC 2.52 L Hgb 9.4 L Hct 28.1 L MCV 111 H MCH 37.2 H MCHC 33.4 RDW 18.6 H Plt Count 105 L Seg Neutrophils % 66.7 Sodium 124.7 L Potassium 3.0 L* Chloride 94 L Carbon Dioxide 26 Anion Gap 5 BUN 5 L Creatinine 0.43 L Est GFR ( Amer) > 60 Glucose 136 H Calcium 7.4 L Total Bilirubin 2.3 H AST 126 H Alkaline Phosphatase 223 H Total Protein 4.9 L Albumin 1.8 L 01/31/20 06:00 Blood Blood Culture - Final NO GROWTH IN 5 DAYS 01/31/20 05:45 Blood Blood Culture - Final NO GROWTH IN 5 DAYS 01/30/20 18:35 CK-MB (CK-2) 0.67 Impressions: Acute Abdomen Series 01/30/20 17:35 IMPRESSION: NONSPECIFIC BOWEL GAS PATTERN.Few scattered small bowel loops with air fluid levels. Abdomen/Pelvis CT 01/30/20 20:52 IMPRESSION: Severe hepatic steatosis with large volume ascites. Diffuse circumferential colonic and small bowel wall thickening, suspicious for portal hypertensive colopathy/enteropathy. However, a superimposed infectious/inflammatory enteritis/colitis would be difficult to exclude. Gallbladder wall thickening, likely related to underlying chronic liver disease. Moderate hiatal hernia also containing fat and fluid. Small bilateral pleural effusions. 3.1 cm benign appearing ovarian cyst. Recommend follow-up pelvic US in 6-12 months. Reference: J Am Frank Radiol 2013;10:675-681 TECHNICAL DOCUMENTATION: Quality ID # 436: Final reports with documentation of one or more dose reduction techniques (e.g., Automated exposure control, adjustment of the mA and/or kV according to patient size, use of iterative reconstruction technique) copyright 2011 [employer]- All Rights Reserved Paracentesis Ultrasound 01/31/20 00:00 IMPRESSION: Successful ultrasound-guided paracentesis Assessment and Plan - Diagnosis (1) Cirrhosis of liver Qualifiers: Hepatic cirrhosis type: unspecified hepatic cirrhosis Ascites presence: with ascites Qualified Code(s): K74.60 - Unspecified cirrhosis of liver; R18.8 - Other ascites Is this a current diagnosis for this admission?: Yes Plan: -Fairly new diagnosis has not been worked up for possible causes. He has not seen a mural artist outpatient -She admits admits to drinking 4 glasses of wine per day for several years. Denies prior admission for alcohol withdrawal -Liver enzymes stable -She continues to have poor energy, sodium is worsening at 124 -Abdomen stable not enlarging. Complains of mild suprapubic pain radiating to the back -No indication to re-tap abdomen as of now heat she does not have a white count, no fever abdominal pain can be secondary to ascites -Ascites Gram stain and culture showed no organism. Pathology report reviewed no malignant cells seen -Ordered 3 doses of albumin for her hyponatremia - MELD score 21 points 19.6% 3 month mortality -Patient may need transfer to a tertiary care hospital to work-up etiology of liver cirrhosis -Advised to abstain from further alcohol consumption (2) Hyponatremia Is this a current diagnosis for this admission?: Yes Plan: -Mild hyponatremia 128>126>124 -Likely dilutional hyponatremia from liver cirrhosis -Given 3 doses of albumin (3) Acute UTI (urinary tract infection) Is this a current diagnosis for this admission?: Yes Plan: -Urine culture grew E. coli, blood culture negative -afebrile with normal WBC count 8.7 -Completed ceftriaxone treatment (4) Hypokalemia Is this a current diagnosis for this admission?: Yes Plan: - resolved K 3.0 -replaced via IV we will continue to monitor (5) Increased ammonia level Is this a current diagnosis for this admission?: Yes (6) Ascites Qualifiers: Ascites type: other type Qualified Code(s): R18.8 - Other ascites Is this a current diagnosis for this admission?: Yes Plan: -Gram stain and culture of ascitic fluid did not grow any organism -She complains of mild suprapubic pain but no fever no guarding no tenderness abdominal size is stable no indication for re-tap of ascites for now -No signs of SBP for now, no indication to retap abdomen (7) Macrocytic anemia Is this a current diagnosis for this admission?: Yes Plan: -Hemoglobin stable at 9.1 no signs of melena hematochezia or hematemesis -Likely secondary to alcohol abuse or vitamin B12 deficiency -b12 previously checked, normal - Plan Summary Summary: She continues to have low energy poor appetite now, sodium continues to drop also with hypokalemia. She has completed treatment for possible UTI. If she d oes not improve she may need transfer to a tertiary care center where there is a mural artist for further work-up of her liver cirrhosis - Time Time Spent with patient: 15-24 minutes Medications reviewed and adjusted accordingly: Yes Anticipated Discharge Disposition: Home with Home Health Anticipated Discharge Timeframe: To be determined - Inpatient Certification Medical Necessity: Risk of Complication if Not Cared For in Hospital
[2020-02-05] MEDS: POTASSI CL 20 MEQ/50 ML RIDER 20 MEQ/50 ML RTUPB IV SCH ×3 (18:27→21:37)
[2020-02-05] MEDS: LACTULOSE SYRUP 20 GM/30 ML UDCUP PO SCH (22:50)
[2020-02-06] MEDS: POTASSI CL 20 MEQ/50 ML RIDER 20 MEQ/50 ML RTUPB IV SCH (00:05)
[2020-02-06] MEDS: ALBUMIN HUMAN 12.5 GM/50 ML RTUINJ IV SCH ×3 (02:43→05:05)
[2020-02-06] MEDS: PANTOPRAZOLE SODIUM 20 MG TABLET.DR PO SCH (05:05)
[2020-02-06 08:30] LABS: APPEARANCE,URINE CLEAR; BILIRUBIN,URINE NEGATIVE (NEGATIVE); COLOR,URINE YELLOW; GLUCOSE, URINE NEGATIVE (NEGATIVE); KETONES,URINE NEGATIVE (NEGATIVE); PROTEIN,URINE NEGATIVE (NEGATIVE); URINE SPECIFIC GRAVITY 1.004; UROBILINOGEN,URINE NEGATIVE mg/dL (<2.0)
[2020-02-06 09:17] LABS: ALBUMIN 2.2 g/dL (3.5-5.0); ALKALINE PHOSPHATASE 181 U/L (38-126); ANION GAP 6 (5-19); ASPARTATE AMINO TRANSFERASE 85 U/L (14-36); BILIRUBIN,DIRECT 1.9 mg/dL (0.0-0.4); BLOOD UREA NITROGEN 3 mg/dL (7-20); CALCIUM 7.1 mg/dL (8.4-10.2); CARBON DIOXIDE 26 mmol/L (22-30); CHLORIDE 95 mmol/L (98-107); GLUCOSE 100 mg/dL (75-110); POTASSIUM 3.5 mmol/L (3.6-5.0); TOTAL PROTEIN 4.6 g/dL (6.3-8.2)
[2020-02-06 09:18] LABS: RED BLOOD COUNT 2.13 10^6/uL (3.72-5.28); WHITE BLOOD COUNT 5.9 10^3/uL (4.0-10.5)
[2020-02-06 09:19] LABS: ABSOLUTE LYMPHOCYTES (AUTO) 1.3 10^3/uL (0.5-4.7); ABSOLUTE MONOCYTES (AUTO) 0.5 10^3/uL (0.1-1.4); BASOPHILS % (AUTO) 0.5 % (0-2); EOSINOPHILS % (AUTO) 0.6 % (0-6); HEMATOCRIT 24.1 % (36.0-47.0); LYMPHOCYTES % (AUTO) 22.2 % (13-45); MEAN CORPUSCULAR HEMOGLOBIN 37.1 pg (27.0-33.4); MEAN CORPUSCULAR HGB CONC 32.8 g/dL (32.0-36.0); MEAN CORPUSCULAR VOLUME 113 fl (80-97); MONOCYTES % (AUTO) 8.6 % (3-13); PLATELET COUNT 125 10^3/uL (150-450); SEGMENTED NEUTROPHILS % (AUTO) 68.1 % (42-78); TOTAL CELLS COUNTED % (AUTO) 100 %
[2020-02-06 09:46] LABS: ANISOCYTOSIS 2+; OVALOCYTES SLIGHT; PLATELET COMMENT DECREASED; TARGET CELLS 1+
[2020-02-06 09:50] LABS: HEMOGLOBIN 7.9 g/dL (12.0-15.5)
[2020-02-06] MEDS: MORPHINE SULFATE 10 MG/ML INJ IV PRN ×2 (11:40→23:53)
[2020-02-06] MEDS: CEFTRIAXONE 2 GM/D5W RTU 2 GM/50 ML RTUPB IV SCH (11:40)
--- NOTE | 2020-02-06 11:42 | PDOC PROGRESS REPORT ---
Subjective Progress Note for:: 02/06/20 Subjective:: Patient was seen and examined at bedside. She feels that her abdomen is smaller, not as distended. Hemoglobin dropped to 7.9 from 9.4 yesterday and her bilirubin continues to trend up. Informed her that she might need to get transferred to a tertiary care center for a possible variceal bleed. She was visibly upset and she does not want to get transferred and wants to go home tomorrow whether we discharge her or not. I explained to her the consequences of those choices and she seems to have understood. Reason For Visit: ACUTE LIVER FAILURE Physical Exam Vital Signs: Temp Pulse Resp BP Pulse Ox 97.7 F 79 16 92/64 L 97 02/06/20 08:47 02/06/20 07:26 02/06/20 07:26 02/06/20 07:26 02/06/20 07:26 Intake & Output 02/05/20 02/06/20 02/07/20 06:59 06:59 06:59 Intake Total 550 1429 Output Total 100 Balance 450 1429 Weight 49.8 kg 50.9 kg General appearance: PRESENT: no acute distress, cooperative Head exam: PRESENT: atraumatic, normocephalic Eye exam: PRESENT: EOMI, PERRLA Mouth exam: PRESENT: moist Respiratory exam: PRESENT: clear to auscultation valentin, symmetrical, unlabored Cardiovascular exam: PRESENT: RRR, +S1, +S2 Pulses: PRESENT: normal carotid pulses GI/Abdominal exam: PRESENT: ascites, distended, normal bowel sounds, soft. ABSENT: guarding, rebound Rectal exam: ABSENT: black stool Extremities exam: ABSENT: joint swelling, pedal edema Musculoskeletal exam: PRESENT: full ROM Neurological exam: PRESENT: alert, awake, oriented to person, oriented to place, oriented to time Psychiatric exam: PRESENT: normal mood Results Laboratory Results: 02/06/20 08:42 02/06/20 08:42 02/05/20 02/05/20 02/06/20 11:00 11:10 08: WBC 8.6 RBC 2.52 L Hgb 9.4 L Hct 28.1 L MCV 111 H MCH 37.2 H MCHC 33.4 RDW 18.6 H Plt Count 105 L Seg Neutrophils % 66.7 Sodium 124.7 L Potassium 3.0 L* Chloride 94 L Carbon Dioxide 26 Anion Gap 5 BUN 5 L Creatinine 0.43 L Est GFR ( Amer) > 60 Glucose 136 H Calcium 7.4 L Total Bilirubin 2.3 H AST 126 H Alkaline Phosphatase 223 H Total Protein 4.9 L Albumin 1.8 L Urine Color YELLOW Urine Appearance CLEAR Urine pH 6.0 Ur Specific [place] 1.004 Urine Protein NEGATIVE Urine Glucose (UA) NEGATIVE Urine Ketones NEGATIVE Urine Blood NEGATIVE Urine RBC (Auto) 0 02/06/20 02/06/20 08:42 08:42 WBC 5.9 RBC 2.13 L Hgb 7.9 L Hct 24.1 L MCV 113 H MCH 37.1 H MCHC 32.8 RDW 18.0 H Plt Count 125 L Seg Neutrophils % 68.1 Sodium 126.7 L Potassium 3.5 L Chloride 95 L Carbon Dioxide 26 Anion Gap 6 BUN 3 L Creatinine 0.37 L Est GFR ( Amer) > 60 Glucose 100 Calcium 7.1 L Total Bilirubin 3.0 H AST 85 H Alkaline Phosphatase 181 H Total Protein 4.6 L Albumin 2.2 L Urine Color Urine Appearance Urine pH Ur Specific [place] Urine Protein Urine Glucose (UA) Urine Ketones Urine Blood Urine RBC (Auto) 01/30/20 18:35 CK-MB (CK-2) 0.67 Impressions: Acute Abdomen Series 01/30/20 17:35 IMPRESSION: NONSPECIFIC BOWEL GAS PATTERN.Few scattered small bowel loops with air fluid levels. Abdomen/Pelvis CT 01/30/20 20:52 IMPRESSION: Severe hepatic steatosis with large volume ascites. Diffuse circumferential colonic and small bowel wall thickening, suspicious for portal hypertensive colopathy/enteropathy. However, a superimposed infectious/inflammatory enteritis/colitis would be difficult to exclude. Gallbladder wall thickening, likely related to underlying chronic liver disease. Moderate hiatal hernia also containing fat and fluid. Small bilateral pleural effusions. 3.1 cm benign appearing ovarian cyst. Recommend follow-up pelvic US in 6-12 months. Reference: J Am Frank Radiol 2013;10:675-681 TECHNICAL DOCUMENTATION: Quality ID # 436: Final reports with documentation of one or more dose reduction techniques (e.g., Automated exposure control, adjustment of the mA and/or kV according to patient size, use of iterative reconstruction technique) copyright 2011 [employer]- All Rights Reserved Paracentesis Ultrasound 01/31/20 00:00 IMPRESSION: Successful ultrasound-guided paracentesis Assessment and Plan - Diagnosis (1) Varices of esophagus determined by endoscopy Is this a current diagnosis for this admission?: Yes Plan: - per patient she was diagnosed at [facility] when she had an endoscopy 2 months ago - she was not started on any medication, was told to stop drinking - drop in Hgb concerning for variceal bleed - she does not want to be transferred, risk explained she accepts them which included - ocreotide infusion ordered and abx (2) Cirrhosis of liver Qualifiers: Hepatic cirrhosis type: unspecified hepatic cirrhosis Ascites presence: with ascites Qualified Code(s): K74.60 - Unspecified cirrhosis of liver; R18.8 - Other ascites Is this a current diagnosis for this admission?: Yes Plan: -Fairly new diagnosis has not been worked up for possible causes. He has not seen a holistic nutritionist outpatient -She admits admits to drinking 4 glasses of wine per day for several years. Denies prior admission for alcohol withdrawal -Tbili increasing 2.0>3.0 -sodium 124>126.7 - Hgb drop from 9.4>7.9 no melena, no hematochezia. Highly suspicious for variceal bleed -Ascites Gram stain and culture showed no organism. Pathology report reviewed no malignant cells seen -s/p 3 doses of albumin for her hyponatremia - MELD score 21 points 19.6% 3 month mortality - ordered repeat US - restarted on ceftriaxone - ocreotide infusion - on protonix - she does not want to get transferred, wants to go home tomorrow despite risk. She has decision making capacity (3) Hyponatremia Is this a current diagnosis for this admission?: Yes Plan: -Mild hyponatremia 128>126>124>126.7 post albumin -Likely dilutional hyponatremia from liver cirrhosis -Given 3 doses of albumin (4) Acute UTI (urinary tract infection) Is this a current diagnosis for this admission?: Yes Plan: -Urine culture grew E. coli, blood culture negative -afebrile with normal WBC count 8.7 -Restarted ceftriaxone for possible esophageal bleed (5) Hypokalemia Is this a current diagnosis for this admission?: Yes Plan: - resolved K 3.0>3.5 -replaced via IV we will continue to monitor (6) Ascites Qualifiers: Ascites type: other type Qualified Code(s): R18.8 - Other ascites Is this a current diagnosis for this admission?: Yes (7) Macrocytic anemia Is this a current diagnosis for this admission?: Yes Plan: -Hemoglobin stable at 9.1>7.9.n o signs of melena hematochezia or hematemesis but concerning for variceal bleed since she does have a history -no need for BT yet - ocreotide infusion ordered - Plan Summary Summary: She continues to have low energy poor appetite now, sodium continues to drop also with hypokalemia. She has completed treatment for possible UTI. If she does not improve she may need transfer to a tertiary care center where there is a holistic nutritionist for further work-up of her liver cirrhosis - Time Time Spent with patient: 25-34 minutes Medications reviewed and adjusted accordingly: Yes Anticipated Discharge Disposition: to be determined Anticipated Discharge Timeframe: To be determined - Inpatient Certification Medical Necessity: Risk of Complication if Not Cared For in Hospital
--- NOTE | 2020-02-06 14:42 | RADIOLOGY REPORT (SQ) ---
EXAM DESCRIPTION: U/S ABDOMEN COMPLETE W/O DOP IMAGES COMPLETED DATE/TIME: 02/06/2020 2:25 pm REASON FOR STUDY: elevated bilirubin COMPARISON: CT from several days ago. TECHNIQUE: Dynamic and static grayscale images acquired of the abdomen and recorded on PACS. Alexiao luther selected color Doppler and spectral images recorded. LIMITATIONS: Study limited due to acoustical interference from fat or from air in the bowel. FINDINGS: PANCREAS: Normal as assessed. LIVER: Heterogeneous echo pattern without suggestion of mass. Generally echogenic. Fatty parenchyma . LIVER VASCULATURE: Hepatic veins not seen. Portal vein not seen. GALLBLADDER: No stones. Normal wall thickness. No pericholecystic fluid. ULTRASOUND-DETECTED SAEED'S SIGN: Negative. INTRAHEPATIC DUCTS AND COMMON DUCT:Ducts not seen. INFERIOR VENA CAVA: Normal flow. AORTA: No aneurysm. RIGHT KIDNEY: Normal size. Normal echogenicity. No solid or suspicious masses. No hydronephrosis. No calcifications. LEFT KIDNEY: Normal size. Normal echogenicity. No solid or suspicious masses. No hydronephrosis. No calcifications. SPLEEN:Normal size. No solid masses. PERITONEAL AND PLEURAL SPACES: Ascites is present. Left pleural effusion present. OTHER: No other significant finding. IMPRESSION: 1. Limiting bowel gas causing acoustical interference. 2. Heterogeneous fatty liver. 3. Ascites and pleural fluid. TECHNICAL DOCUMENTATION: JOB ID: [id number] 2010 [employer]- All Rights Reserved Reading location - IP/workstation name: [email or web address]
[2020-02-06] MEDS: NORMAL SALINE 500 ML with OCTREOTIDE ACETATE 500 MCG IV PRN ×4 (15:11→23:56)
[2020-02-06] MEDS: TRAMADOL HCL 50 MG TABLET PO PRN (21:15)
[2020-02-06] MEDS: ONDANSETRON HCL INJ/PF 4 MG/2 ML SDV IV PRN (21:15)
[2020-02-07] MEDS: PANTOPRAZOLE SODIUM 20 MG TABLET.DR PO SCH (06:11)
[2020-02-07] MEDS: ONDANSETRON HCL INJ/PF 4 MG/2 ML SDV IV PRN ×2 (08:55→21:28)
[2020-02-07] MEDS: TRAMADOL HCL 50 MG TABLET PO PRN (08:56)
[2020-02-07] MEDS: CEFTRIAXONE 2 GM/D5W RTU 2 GM/50 ML RTUPB IV SCH (10:00)
[2020-02-07] MEDS ORDERED: HYDROMORPHONE HCL INJ/PF 2 MG/ML AMPULE IV PRN (13:21)
[2020-02-07] MEDS: NORMAL SALINE 500 ML with OCTREOTIDE ACETATE 500 MCG IV PRN ×2 (18:48)
--- NOTE | 2020-02-07 20:32 | PDOC TRANSFER SUMMARY ---
General Admission Date/PCP: 01/30/20 23:22 Admission Date: 01/30/20 Accepting Facility: [facility] Accepting Physician: Dr. Wilkinson Resuscitation Status: Full Code - Transfer Diagnosis (1) Varices of esophagus determined by endoscopy Is this a current diagnosis for this admission?: Yes Diagnosis Summary: -Patient was diagnosed with liver cirrhosis 2 months prior when she presented with hematemesis. 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 No overt hematemesis or melena. -He was started on octreotide drip (2) Cirrhosis of liver Is this a current diagnosis for this admission?: Yes Diagnosis Summary: -This is a fairly new diagnosis about 2 months prior -Ultrasound and CT of the abdomen consistent with liver cirrhosis -Status post paracentesis on 01/30/2020 drained 1.7 L of serosanguineous fluid. Gram stain and cultures are negative, cytology did not show any malignant cells. -Bilirubin continues to trend up on this admission (3) Hyponatremia Is this a current diagnosis for this admission?: Yes Diagnosis Summary: -Likely secondary to liver cirrhosis -Baseline on admission 129 slowly trended down to 124 mildly improved with 3 doses of albumin (4) Acute UTI (urinary tract infection) Is this a current diagnosis for this admission?: Yes Diagnosis Summary: -She was asymptomatic UA is consistent with urinary tract infection -She completed 7 days of IV ceftriaxone (5) Ascites Is this a current diagnosis for this admission?: Yes Diagnosis Summary: -Underwent paracentesis on the day of admission drained 1.7 L of fluid negative for malignant cells Gram stain and culture negative (6) Macrocytic anemia Is this a current diagnosis for this admission?: Yes Diagnosis Summary: -This is likely secondary to her alcohol abuse - Transfer Medications Home Medications: No Home Medications 08/24/19 Transfer Medications: Current Medications Dextrose (Dextrose Inj 50% Syringe (25 Gm/50 Ml)) 12.5 gm IV PRN PRN; Protocol PRN Reason: FOR BG 50-69 IN ALERT PATIENT Stop: 03/01/20 01:32 Dextrose (Dextrose Inj 50% Syringe (25 Gm/50 Ml)) 25 gm IV PRN PRN; Protocol PRN Reason: See Label Comments Stop: 03/01/20 01:32 Glucagon (Glucagen Inj 1 Mg Vial) 1 mg SUBCUT PRN PRN; Protocol PRN Reason: Evaluate for BG < 70 Stop: 03/01/20 01:32 Glucose (Glutose 40% Gel 15 Gm Tube) 15 gm PO PRN PRN; Protocol PRN Reason: For BG 50-69 in Alert Patient Stop: 03/01/20 01:32 Glucose (Glutose 40% Gel 15 Gm Tube) 30 gm PO PRN PRN; Protocol PRN Reason: FOR BG < 50 IN ALERT PATIENT Stop: 03/01/20 01:32 Hydromorphone HCl (Dilaudid Inj/Pf 2 Mg/Ml Ampule) 1 mg IV Q4HP PRN PRN Reason: ABDOMINAL CRAMPING Stop: 02/14/20 13:20 Ceftriaxone Sodium/Dextrose (Rocephin Rtu 2 Gm/D5w 50 Ml Premix Bag) 2 gm in 50 mls @ 100 mls/hr IV DAILY PENDING SALE TO [facility] Stop: 02/13/20 11:59 Last Infusion: 02/07/20 10:30 Dose: Infused Documented by: Octreotide Acetate 500 mcg/ (Sodium Chloride) 500 mls @ 50 mls/hr IV CONTINUOUS PRN PRN Reason: THIS MED IS NOT "PRN" Stop: 03/07/20 11:33 Last Admin: 02/07/20 18:48 Dose: 50 mcg/hr, 50 mls/hr Documented by: Melatonin (Melatonin 5 Mg Tablet) 5 mg PO HSP PRN PRN Reason: INSOMNIA Stop: 03/03/20 00:10 Last Admin: 02/02/20 00:16 Dose: 5 mg Documented by: Ondansetron HCl (Zofran Inj/Pf 4 Mg/2 Ml Sdv) 4 mg IV Q4HP PRN PRN Reason: FOR NAUSEA/VOMITING Stop: 03/01/20 01:26 Last Admin: 02/07/20 08:55 Dose: 4 mg Documented by: Pantoprazole Sodium (Protonix [address] Tablet) 20 mg PO Q6AM PENDING SALE TO [facility] Stop: 03/01/20 14:59 Last Admin: 02/07/20 06:11 Dose: 20 mg Documented by: - Allergies Allergies/Adverse Reactions: No Known Allergies Allergy (Verified 01/30/20 17:29) - Diet/Activity Discharge Diet: Clear Liquids Discharge Activity: Activity As Tolerated Hospital Course Hospital Course: Patient is a 55-year-old female recently diagnosed with liver cirrhosis who was admitted on January 30, 2020 due to abdominal swelling generalized fatigue and nausea. 2 months prior she was admitted at a hospital due to hematemesis and apparently was transfused with packed RBC. She was told she needed endoscopy which he got at [facility] and it apparently showed gastric varices. Paracentesis was done on the day of admission with drain of 1.7 L of serosanguineous fluid. Culture and Gram stain were negative, no malignant cells seen. He received 7 days of IV ceftriaxone and due to a urinary tract infection seen on the UA. Her hemoglobin has been stable throughout the admission between 9 and 9.5 however on the eighth day of admission she had a hemoglobin dropped to 7.9 no itzel hematemesis or melena. Her sodium continued to drop as well she came in with a sodium of 129 trended down to 124, she received 3 doses of albumin which mildly improved her hyponatremia. Concern for a possible variceal bleed or leaking portal gastropathy and attending deemed that she would need a place where endoscopy can be done emergently. She was started on an octreotide drip on the interim. Physical Exam Vital Signs: Temp Pulse Resp BP Pulse Ox 98.1 F 93 18 92/67 L 96 02/07/20 15:03 02/07/20 15:03 02/07/20 15:03 02/07/20 15:03 02/07/20 15:03 Intake & Output 02/06/20 02/07/20 02/08/20 06:59 06:59 06:59 Intake Total 1429 1088 910 Output Total 300 Balance 1429 788 910 Weight 50.9 kg 49.9 kg General appearance: PRESENT: no acute distress, cooperative, thin Head exam: PRESENT: atraumatic, normocephalic Eye exam: PRESENT: EOMI, PERRLA Mouth exam: PRESENT: moist Neck exam: PRESENT: full ROM Respiratory exam: PRESENT: clear to auscultation valentin, symmetrical, unlabored Cardiovascular exam: PRESENT: RRR, +S1, +S2 Pulses: PRESENT: normal radial pulses Vascular exam: PRESENT: normal capillary refill GI/Abdominal exam: PRESENT: ascites, diminished bowel sounds, soft. ABSENT: firm, guarding, rebound Rectal exam: ABSENT: black stool Extremities exam: PRESENT: +1 edema Musculoskeletal exam: PRESENT: ambulatory, full ROM Neurological exam: PRESENT: alert, awake, oriented to person, oriented to place, oriented to time Psychiatric exam: PRESENT: appropriate affect Results Laboratory Results: 02/06/20 08:42 02/06/20 08:42 02/06/20 08:22 Clean Catch Midstream Urine Culture - Final C.albicans/C.dubliniensis 01/30/20 18:35 CK-MB (CK-2) 0.67 Impressions: Acute Abdomen Series 01/30/20 17:35 IMPRESSION: NONSPECIFIC BOWEL GAS PATTERN.Few scattered small bowel loops with air fluid levels. Abdomen/Pelvis CT 01/30/20 20:52 IMPRESSION: Severe hepatic steatosis with large volume ascites. Diffuse circumferential colonic and small bowel wall thickening, suspicious for portal hypertensive colopathy/enteropathy. However, a superimposed infectious/inflammatory enteritis/colitis would be difficult to exclude. Gallbladder wall thickening, likely related to underlying chronic liver disease. Moderate hiatal hernia also containing fat and fluid. Small bilateral pleural effusions. 3.1 cm benign appearing ovarian cyst. Recommend follow-up pelvic US in 6-12 months. Reference: J Am Frank Radiol 2013;10:675-681 TECHNICAL DOCUMENTATION: Quality ID # 436: Final reports with documentation of one or more dose reduction techniques (e.g., Automated exposure control, adjustment of the mA and/or kV according to patient size, use of iterative reconstruction technique) copyright 2011 [employer]- All Rights Reserved Paracentesis Ultrasound 01/31/20 00:00 IMPRESSION: Successful ultrasound-guided paracentesis Abdomen Ultrasound 02/06/20 00:00 IMPRESSION: 1. Limiting bowel gas causing acoustical interference. 2. Heterogeneous fatty liver. 3. Ascites and pleural fluid. Plan Discharge Plan: Transfer to [place] for further management Time Spent: Greater than 30 Minutes
[2020-02-07 23:15] VITALS: BP 98/74
== END 2020-02-07 23:30 | disposition short-term general hospital (02) | DRG 432 ==
LOC: ER 16:17 → EH 23:22 → 4N 01-31 02:45
PROVIDERS: ADMIT Family Medicine; ATTEND Internal Medicine
PROC: 0W9G3ZZ Drainage of Peritoneal Cavity, Percutaneous Approach (ICD-10-PCS; principal; 2020-01-31)
DX: K70.31 Alcoholic cirrhosis of liver with ascites (principal); K72.00 Acute and subacute hepatic failure without coma; E87.1 Hypo-osmolality and hyponatremia; N39.0 Urinary tract infection, site not specified; I85.10 Secondary esophageal varices without bleeding; E44.0 Moderate protein-calorie malnutrition; Z68.1 Body mass index [BMI] 19.9 or less, adult; Y90.0 Blood alcohol level of less than 20 mg/100 ml; F10.20 Alcohol dependence, uncomplicated; D63.8 Anemia in other chronic diseases classified elsewhere; E03.9 Hypothyroidism, unspecified; C50.919 Malignant neoplasm of unspecified site of unspecified female breast; F17.210 Nicotine dependence, cigarettes, uncomplicated; K44.9 Diaphragmatic hernia without obstruction or gangrene; B96.20 Unspecified Escherichia coli [E. coli] as the cause of diseases classified elsewhere
CPT/HCPCS: 36415; 49083; 74022; 74177; 76700; 80053; 80307; 81001; 82042; 82140; 82553; 82607; 82728; 82746; 82945; 83540; 83550; 83615; 83690; 83735; 84100; 85025; 85027; 85045; 85610; 85730; 87040; 87070; 87075; 87086; 87088; 87186; 87205; 88305; 89050; 96361; 96365; 96375; 99285; C9113; J0696; J1170; J2270; J2354; J2405; J3010; J3475; J3480; J3490; J7030; J7040; J7510; P9047; S0028

== ENCOUNTER 2020-02-13 11:29 | Inpatient (IN) | payer SELFPAY ==
[2020-02-13] MEDS ORDERED: MORPHINE SULFATE 10 MG/ML INJ IV ONE (13:06)
[2020-02-13] MEDS ORDERED: NORMAL SALINE 1000 ML 1,000 ML IV ONE (13:16)
[2020-02-13] MEDS ORDERED: FENTANYL CITRATE INJ/PF 100 MCG/2 ML AMPUL IV ONE ×2 (13:17→18:12)
[2020-02-13 14:55] LABS: ABSOLUTE BASOPHILS # (AUTO) 0.1 10^3/uL (0.0-0.2); ABSOLUTE LYMPHOCYTES (AUTO) 1.3 10^3/uL (0.5-4.7); ABSOLUTE MONOCYTES (AUTO) 0.4 10^3/uL (0.1-1.4); ABSOLUTE NEUT (AUTO) 10.1 10^3/uL (1.7-8.2); BASOPHILS % (AUTO) 0.7 % (0-2); EOSINOPHILS % (AUTO) 0.1 % (0-6); HEMATOCRIT 27.6 % (36.0-47.0); HEMOGLOBIN 9.2 g/dL (12.0-15.5); LYMPHOCYTES % (AUTO) 11.2 % (13-45); MEAN CORPUSCULAR HEMOGLOBIN 36.3 pg (27.0-33.4); MEAN CORPUSCULAR HGB CONC 33.2 g/dL (32.0-36.0); MEAN CORPUSCULAR VOLUME 110 fl (80-97); MONOCYTES % (AUTO) 3.7 % (3-13); PLATELET COUNT 183 10^3/uL (150-450); RED BLOOD COUNT 2.52 10^6/uL (3.72-5.28); RED CELL DISTRIBUTION WIDTH 17.5 % (11.5-14.0); SEGMENTED NEUTROPHILS % (AUTO) 84.3 % (42-78); TOTAL CELLS COUNTED % (AUTO) 100 %; WHITE BLOOD COUNT 11.9 10^3/uL (4.0-10.5)
[2020-02-13] MEDS: ALBUMIN HUMAN 12.5 GM/50 ML RTUINJ IV SCH ×4 (15:11→23:22)
[2020-02-13 15:14] LABS: ALKALINE PHOSPHATASE 176 U/L (38-126); ANION GAP 9 (5-19); ASPARTATE AMINO TRANSFERASE 92 U/L (14-36); BILIRUBIN,DIRECT 2.6 mg/dL (0.0-0.4); BILIRUBIN,TOTAL 4.2 mg/dL (0.2-1.3); BLOOD UREA NITROGEN 6 mg/dL (7-20); CALCIUM 8.1 mg/dL (8.4-10.2); CARBON DIOXIDE 21 mmol/L (22-30); CHLORIDE 99 mmol/L (98-107); GLUCOSE 96 mg/dL (75-110); POTASSIUM 4.1 mmol/L (3.6-5.0); TOTAL PROTEIN 5.1 g/dL (6.3-8.2)
--- NOTE | 2020-02-13 16:29 | RADIOLOGY REPORT (SQ) ---
EXAM DESCRIPTION: CT ABD/PELVIS WITH IV ONLY IMAGES COMPLETED DATE/TIME: 02/13/2020 4:14 pm REASON FOR STUDY: abdominal pain COMPARISON: CT abdomen pelvis 07/31/2019, 08/24/2019, 01/30/2020 TECHNIQUE: CT scan of the abdomen and pelvis performed using helical scanning technique with dynamic intravenous contrast injection. No oral contrast. Images reviewed with lung, soft tissue, and bone windows. Reconstructed coronal and sagittal MPR images reviewed. Delayed images for evaluation of the urinary system also acquired. All images stored on PACS. All CT scanners at this facility use dose modulation, iterative reconstruction, and/or weight based d osing when appropriate to reduce radiation dose to as low as reasonably achievable (ALARA). [facility]: Dose Right [facility]: CareDose [facility]: Dose Right [facility]: Teradose 4D [facility]: BackupAgent CONTRAST TYPE AND DOSE: contrast/concentration: Isovue 350.00 mmol/ml; Total Contrast Delivered: 51. 0 ml; Total Saline Delivered: 63.0 ml RENAL FUNCTION: Creatinine 0.7 RADIATION DOSE: CT Rad equipment meets quality standard of care and radiation dose reduction techniq ues were employed. CTDIvol: 4.8 - 5.2 mGy. DLP: 528 mGy-cm.. LIMITATIONS: None. FINDINGS: LOWER CHEST: Trace right, small left pleural effusion. These are increased compared to . Large retrocardiac hiatal hernia LIVER: Profound decrease density from fatty infiltration of the liver no gross masses. Liver normal size. SPLEEN: Normal size. No focal lesions. PANCREAS: No masses. No significant calcifications. No adjacent inflammation or peripancreatic fluid collections. Pancreatic duct not dilated. GALLBLADDER: No identified stones by CT criteria. No inflammatory changes to suggest cholecystitis. ADRENAL GLANDS: No significant masses or asymmetry. RIGHT KIDNEY AND URETER: No solid masses. No significant calcifications. No hydronephrosis or hyd roureter. LEFT KIDNEY AND URETER: No solid masses. No significant calcifications. No hydronephrosis or hydr oureter. AORTA AND VESSELS: No aneurysm. No dissection. Renal arteries, SMA, celiac without stenosis. RETROPERITONEUM: No retroperitoneal adenopathy, hemorrhage or masses. BOWEL AND PERITONEAL CAVITY: No masses or inflammatory changes. Moderate ascites, increased compared to 01/30/2020 APPENDIX: Not visualized. PELVIS: No mass. Moderate free fluid. Normal bladder. Normal size uterus 3 cm left ovarian cyst ABDOMINAL WALL: No masses. No hernias. BONES: No significant or acute findings. OTHER: No other significant finding. IMPRESSION: Moderate ascites, increased compared to 01/30/2020 Increasing bilateral pleural effusions Profound attenuation of the liver from fatty infiltration TECHNICAL DOCUMENTATION: JOB ID: [id number] Quality ID # 436: Final reports with documentation of one or more dose reduction techniques (e.g., Au tomated exposure control, adjustment of the mA and/or kV according to patient size, use of iterative reconstruction technique) 2010 [employer]- All Rights Reserved Reading location - IP/workstation name: [id number]
[2020-02-13 17:38] LABS: APPEARANCE,URINE SLIGHTLY-CLOUDY; BILIRUBIN,URINE MODERATE (NEGATIVE); COLOR,URINE AMBER; GLUCOSE, URINE NEGATIVE (NEGATIVE); KETONES,URINE NEGATIVE (NEGATIVE); LEUKOCYTE ESTERASE,URINE NEGATIVE (NEGATIVE); NITRITE,URINE NEGATIVE (NEGATIVE); PROTEIN,URINE 30 mg/dL (NEGATIVE); URINE SPECIFIC GRAVITY 1.054
--- NOTE | 2020-02-13 18:08 | ER Document Report ---
ED GI/ - General Chief Complaint: Abdominal Pain Stated Complaint: SHORTNESS OF BREATH Time Seen by Provider: 02/13/20 12:18 Notes: Patient is a 55-year-old female presents the emergency department with a chief complaint of abdominal pain. Patient states that her pain has gotten progressively worse. Patient has history of liver failure. States that her pain is in her mid abdomen. The pain does not radiate. TRAVEL OUTSIDE OF THE [place] IN LAST 30 DAYS: No - Related Data Allergies/Adverse Reactions: No Known Allergies Allergy (Verified 02/13/20 12:51) Past Medical History - Social History Smoking Status: Current Every Day Smoker Frequency of alcohol use: None Drug Abuse: None Family History: Reviewed & Not Pertinent, Malignancy Patient has homicidal ideation: No Endocrine Medical History: Reports: Hx Hypothyroidism Malignancy Medical History: Reports: Hx Breast Cancer - recently diagnosed in 2019; untreated GI Medical History: Reports: Hx Cirrhosis Psychiatric Medical History: Denies: Hx Depression Past Surgical History: Reports: Hx Orthopedic Surgery - left knee replacement Review of Systems - Review of Systems Notes: REVIEW OF SYSTEMS: CONSTITUTIONAL : Denies recent illness. Denies recent unintentional weight loss. Denies fever, chills, or sweats. EENT: Denies eye, ear, throat, or mouth pain, discharge, or symptoms. Denies nasal or sinus congestion. CARDIOVASCULAR: Denies chest pain. RESPIRATORY: Denies shortness of breath, cough, congestion, difficulty breathing, or wheezing. GASTROINTESTINAL: See HPI. GENITOURINARY: Denies difficulty urinating, burning, blood in urine, urgency or frequency. MUSCULOSKELETAL: Denies neck and back pain. Denies joint pain or swelling. SKIN: Denies rash, itchiness, or lesions HEMATOLOGIC : Denies easy bruising or bleeding. LYMPHATIC: Denies swollen, painful, enlarged glands. NEUROLOGICAL: Denies no numbness or tingling denies weakness. Denies headache. Denies altered mental status. Denies alteration in speech. PSYCHIATRIC: Denies stress, anxiety, alteration in sleep patterns, or depression. All other systems reviewed and negative. Physical Exam - Vital signs Vitals: Temp Pulse Resp BP Pulse Ox 97.6 F 112 H 20 88/65 L 99 02/13/20 11:36 02/13/20 11:36 02/13/20 11:36 02/13/20 11:36 02/13/20 11:36 - Notes Notes: PHYSICAL EXAMINATION: GENERAL: Appears well, healthy, well-nourished, no acute distress. HEAD: Normocephalic, atraumatic. EYES: PERRL, conjunctiva normal, all extraocular movements intact, sclera icteric ENT: Moist mucous membranes. NECK: Supple, no noticeable swelling, redness, rash. Normal range of motion. LUNGS: Equal breath sounds bilaterally and clear to auscultation. No wheezes rales or rhonchi. CARDIOVASCULAR: S1-S2, regular rate, regular rhythm. Radial pulses 2+, normal. ABDOMEN: Normoactive bowel sounds. Soft, moderately tender abdomen., Moderate guarding, no rebound tenderness, and no masses palpated. EXTREMITIES: Normal strength and range of motion, no pitting or edema. No cyanosis. NEUROLOGICAL: Moves all extremities upon command. Strength 5/5 in all extremities. PSYCH: Normal mood, normal affect. SKIN: Warm, dry. No rash, lesions, ulcerations noted. Normal skin turgor. Course - Re-evaluation Re-evalutation: 02/13/20 18:07 CT of the abdomen pelvis shows moderate ascites and bilateral pleural effusions. Patient also has fatty liver infiltrates. Chemistries show a leukocytosis of 11,900. Patient's hemoglobin is 9.2, which is stable for her. Sodium is a little low at 129, which she received IV fluids 4. CO2 is 21. AST and ALT are elevated. Albumin is low, due to her liver failure. Spoke with Dr. Olivera. The patient will be admitted to the telemetry floor. - Vital Signs Vital signs: Temp Pulse Resp BP Pulse Ox 97.6 F 99 22 H 101/55 L 94 02/13/20 11:45 02/13/20 14:11 02/13/20 18:01 02/13/20 18:01 02/13/20 18:01 - Laboratory Result Diagrams: 02/13/20 14:50 02/13/20 14:50 Laboratory results interpreted by me: 02/13/20 02/13/20 02/13/20 14:50 14:50 16:58 WBC 11.9 H RBC 2.52 L Hgb 9.2 L Hct 27.6 L MCV 110 H MCH 36.3 H RDW 17.5 H Lymph % (Auto) 11.2 L Absolute Neuts (auto) 10.1 H Seg Neutrophils % 84.3 H Sodium 129.4 L Carbon Dioxide 21 L BUN 6 L Calcium 8.1 L Total Bilirubin 4.2 H Direct Bilirubin 2.6 H AST 92 H ALT 37 H Alkaline Phosphatase 176 H Total Protein 5.1 L Albumin 2.0 L Urine Protein 30 H Urine Bilirubin MODERATE H Urine Urobilinogen 4.0 H Discharge - Discharge Clinical Impression: Ascites Qualifiers: Ascites type: due to alcoholic cirrhosis Qualified Code(s): K70.31 - Alcoholic cirrhosis of liver with ascites Cirrhosis of liver Qualifiers: Hepatic cirrhosis type: alcoholic cirrhosis Ascites presence: with ascites Qualified Code(s): K70.31 - Alcoholic cirrhosis of liver with ascites Anemia Qualifiers: Anemia type: other cause Other causes of anemia: other cause, not classified Qualified Code(s): D64.89 - Other specified anemias Condition: Stable Disposition: ADMITTED INPATIENT Admitting Provider: Joselin (Hospitalist) Unit Admitted: Telemetry
[2020-02-13] MEDS ORDERED: SUCRALFATE 1 GM TABLET PO ONE (18:09)
[2020-02-13] MEDS ORDERED: FAMOTIDINE 20 MG TABLET PO ONE (18:09)
[2020-02-13] MEDS ORDERED: MAGNESIUM HYDROXIDE SUSP 30 ML UDCUP PO PRN (21:15)
[2020-02-13] MEDS ORDERED: TEMAZEPAM 7.5 MG CAPSULE PO PRN (21:15)
[2020-02-13] MEDS ORDERED: ONDANSETRON HCL INJ/PF 4 MG/2 ML SDV IV PRN (21:15)
[2020-02-13] MEDS ORDERED: PROMETHAZINE HCL INJ 25 MG/1 ML VIAL IV PRN (21:15)
[2020-02-13] MEDS ORDERED: IPRATROPIUM/ALBUTEROL 0.5-2.5 MG/3 ML AMPUL NEB PRN (21:15)
[2020-02-13] MEDS ORDERED: ACETAMINOPHEN 325 MG TABLET PO PRN (21:15)
[2020-02-13] MEDS ORDERED: MORPHINE SULFATE 10 MG/ML INJ IV PRN (21:35)
[2020-02-13] MEDS ORDERED: MIDODRINE HCL 5 MG TABLET PO ONE (22:00)
[2020-02-13] MEDS: HEPARIN SOD (PORCINE) 5,000 UNIT/ML 1 ML VIAL SUBCUT SCH (22:13)
[2020-02-13] MEDS: PANTOPRAZOLE SODIUM 40 MG VIAL IV SCH (22:13)
[2020-02-13] MEDS ORDERED: DEXTROSE 40% GEL 15 GM TUBE PO PRN ×2 (23:09)
[2020-02-13] MEDS ORDERED: DEXTROSE 50%-WATER 25 GM/50 ML DISP.SYRIN IV PRN ×2 (23:09)
[2020-02-13] MEDS ORDERED: GLUCAGON,HUMAN RECOMB 1 MG INJ SUBCUT PRN (23:09)
--- NOTE | 2020-02-13 23:13 | PDOC H&P ---
History of Present Illness Admission Date/PCP: 02/13/20 18:31 History of Present Illness: STEPHANIE MONTELONGO is a 55 year old female past medical history of severe alcohol and tobacco abuse, recently diagnosed severe hepatic cirrhosis with varices who was admitted at [facility] on 01/30/2020 and subsequently transferred to [place] on 02/07/2020. As per patient she was hospitalized at [place] for 2 days and then sent home. Patient stating that they did not do any type of procedures and she does not like to go there again. Patient presenting to ED complaining of worsening abdominal distention, diffuse abdominal pain, early satiety, bloating, and shortness of breath. Patient denies any chest pain, fever, chills, nausea, vomiting, diarrhea, constipation. In ED she was noted to have mild leukocytosis, microcytic anemia, mild hypotension, elevated liver chemistries and hyponatremia. CT abdomen pelvis showed significant ascites and hepatic steatosis. Hospitalist consulted for admission. Past Medical History Endocrine Medical History: Reports: Hypothyroidism Malignancy Medical History: Reports: Breast Cancer - recently diagnosed in 2019; untreated GI Medical History: Reports: Cirrhosis Psychiatric Medical History: Denies: Depression Past Surgical History Past Surgical History: Reports: Orthopedic Surgery - left knee replacement Social History Smoking Status: Current Every Day Smoker Hx Recreational Drug Use: No Drugs: None Hx Prescription Drug Abuse: No Family History Family History: Reviewed & Not Pertinent, Malignancy Parental Family History Reviewed: Yes Children Family History Reviewed: Yes Sibling(s) Family History Reviewed.: Yes Medication/Allergy Home Medications: No Home Medications 08/24/19 Allergies/Adverse Reactions: No Known Allergies Allergy (Verified 02/13/20 12:51) Review of Systems Review of Systems: as per hpi Physical Exam Vital Signs: Temp Pulse Resp BP Pulse Ox 98.1 F 99 23 H 89/67 L 94 02/13/20 20:06 02/13/20 14:11 02/13/20 21:30 02/13/20 21:30 02/13/20 21:30 Intake & Output 02/12/20 02/13/20 02/14/20 06:59 06:59 06:59 Intake Total 1100 Balance 1100 Weight 45.359 kg General appearance: PRESENT: cooperative, mild distress, thin Head exam: PRESENT: atraumatic, normocephalic Respiratory exam: PRESENT: clear to auscultation valentin. ABSENT: rales, rhonchi, wheezes Cardiovascular exam: PRESENT: RRR. ABSENT: diastolic murmur, rubs, systolic murmur GI/Abdominal exam: PRESENT: ascites, distended, normal bowel sounds, soft, tenderness - Diffuse. ABSENT: guarding, mass, organolmegaly, rebound Extremities exam: PRESENT: full ROM. ABSENT: calf tenderness, clubbing, pedal edema Neurological exam: PRESENT: alert, awake, oriented to person, oriented to place, oriented to time, oriented to situation, CN II-XII grossly intact. ABSENT: motor sensory deficit Results Laboratory Results: 02/13/20 14:50 02/13/20 14:50 02/13/20 02/13/20 02/13/20 14:50 14:50 16:58 WBC 11.9 H RBC 2.52 L Hgb 9.2 L Hct 27.6 L MCV 110 H MCH 36.3 H MCHC 33.2 RDW 17.5 H Plt Count 183 Seg Neutrophils % 84.3 H Sodium 129.4 L Potassium 4.1 Chloride 99 Carbon Dioxide 21 L Anion Gap 9 BUN 6 L Creatinine 0.67 Est GFR ( Amer) > 60 Glucose 96 Calcium 8.1 L Total Bilirubin 4.2 H AST 92 H Alkaline Phosphatase 176 H Total Protein 5.1 L Albumin 2.0 L Lipase 53.4 Urine Color HORTENSIA Urine Appearance SLIGHTLY-CLOUDY Urine pH 5.0 Ur Specific [place] 1.054 Urine Protein 30 H Urine Glucose (UA) NEGATIVE Urine Ketones NEGATIVE Urine Blood NEGATIVE Urine Nitrite NEGATIVE Ur Leukocyte Esterase NEGATIVE Urine WBC (Auto) 3 Urine RBC (Auto) 6 Impressions: Abdomen/Pelvis CT 02/13/20 14:59 IMPRESSION: Moderate ascites, increased compared to 01/30/2020 Increasing bilateral pleural effusions Profound attenuation of the liver from fatty infiltration Assessment and Plan - Diagnosis (1) Abdominal pain Qualifiers: Abdominal location: generalized Qualified Code(s): R10.84 - Generalized abdominal pain Is this a current diagnosis for this admission?: Yes Plan: Likely due to underlying severe ascites, spontaneous bacterial peritonitis is a possibility. Patient had paracentesis on previous admission and fluid analysis was negative for any malignancy or infection. Therapeutic and diagnostic paracentesis, empiric broad-spectrum IV antibiotics, peritoneal fluid analysis cytology, gram stain and culture, blood culture. (2) Ascites Qualifiers: Ascites type: due to alcoholic cirrhosis Qualified Code(s): K70.31 - Alcoholic cirrhosis of liver with ascites Is this a current diagnosis for this admission?: Yes Plan: Due to severe alcoholic cirrhosis. Plan as per 1. (3) Cirrhosis of liver Qualifiers: Hepatic cirrhosis type: alcoholic cirrhosis Ascites presence: with ascites Qualified Code(s): K70.31 - Alcoholic cirrhosis of liver with ascites Is this a current diagnosis for this admission?: Yes Plan: History of heavy alcohol abuse. Recently diagnosed with hepatic cirrhosis with varices. As per chart review patient had upper GI endoscopy in [place] and was told that she had bad varices. Denies any hemoptysis, hematemesis, hematuria, melena or hematochezia. Alert and oriented x3 no sign of hepatic encephalopathy. P.o. rifaximin. P.o. lactulose PRN titrate to have 2-3 soft bowel movements daily. Lasix and Aldactone if BP is allows. Monitor for bleeding. Monitor electrolytes and volume status. Avoid hepatotoxic medications. Gastroenterology consulted. (4) Hyponatremia Is this a current diagnosis for this admission?: Yes Plan: Hypervolemic hyponatremia due to underlying severe ascites caused by underlying alcoholic cirrhosis. Fluid restriction, therapeutic paracentesis, Lasix and Aldactone if BP is allows, daily BMP. Seizure precautions. (5) Macrocytic anemia Is this a current diagnosis for this admission?: Yes Plan: Likely due to alcoholic cirrhosis. Denies any hematemesis, hemoptysis, hematuria, melena or hematochezia. Monitor H&H, supplemental ferrous sulfate, folic acid, B12, multivitamins, encourage EtOH abstinence. (6) Protein-calorie malnutrition, moderate Is this a current diagnosis for this admission?: Yes Plan: Due to underlying severe hepatic cirrhosis. Will consult registered dietitian. (7) Hypotension Qualifiers: Hypotension type: other hypotension type Qualified Code(s): I95.89 - Other hypotension Is this a current diagnosis for this admission?: Yes Plan: Likely due to intravascular volume depletion due to underlying severe cirrhosis. Denies any lightheadedness, syncope or presyncope. No sign of sepsis, mild leukocytosis, denies any fever. Monitor vitals, IV albumin, start on midodrine and adjust dosage as needed. Avoid fluid resuscitation if possible. - Time Time Spent with patient: 35 or more minutes Smoking Cessation Education: 3 to 10 minutes Medications reviewed and adjusted accordingly: Yes Anticipated Discharge Disposition: Home with Home Health Anticipated Discharge Timeframe: within 72 hours
[2020-02-13] MEDS ORDERED: RIFAXIMIN 550 MG TABLET ONE (23:17)
[2020-02-13] MEDS ORDERED: ALBUMIN HUMAN 37.5 GM/150 ML IV ONE (23:18)
[2020-02-13] MEDS: RIFAXIMIN 550 MG TABLET PO SCH ×2 (23:21→23:32)
[2020-02-13 23:48] LABS: INTERNATIONAL RATION (INR) 1.98; PROTHROMBIN TIME 22.6 SEC (11.4-15.4)
[2020-02-14] MEDS: CEFTRIAXONE 1 GM/D5W RTU 1 GM/50 ML RTUPB IV SCH ×2 (00:09→21:56)
[2020-02-14] MEDS: ALBUMIN HUMAN 12.5 GM/50 ML RTUINJ IV SCH ×2 (01:00→02:42)
[2020-02-14] MEDS: HEPARIN SOD (PORCINE) 5,000 UNIT/ML 1 ML VIAL SUBCUT SCH (05:02)
[2020-02-14 05:24] LABS: ABSOLUTE LYMPHOCYTES (AUTO) 1.7 10^3/uL (0.5-4.7); ABSOLUTE MONOCYTES (AUTO) 0.2 10^3/uL (0.1-1.4); ABSOLUTE NEUT (AUTO) 4.3 10^3/uL (1.7-8.2); ABSOLUTE RETICS # 0.057 10^6/uL (0.028-0.122); BASOPHILS % (AUTO) 0.6 % (0-2); EOSINOPHILS % (AUTO) 0.6 % (0-6); HEMATOCRIT 19.1 % (36.0-47.0); LYMPHOCYTES % (AUTO) 26.4 % (13-45); MEAN CORPUSCULAR HEMOGLOBIN 36.2 pg (27.0-33.4); MEAN CORPUSCULAR HGB CONC 33.2 g/dL (32.0-36.0); MEAN CORPUSCULAR VOLUME 109 fl (80-97); PLATELET COUNT 129 10^3/uL (150-450); RED BLOOD COUNT 1.76 10^6/uL (3.72-5.28); RED CELL DISTRIBUTION WIDTH 17.3 % (11.5-14.0); RETICULOCYTE COUNT (AUTO) 3.24 % (0.66-2.85); SEGMENTED NEUTROPHILS % (AUTO) 69.4 % (42-78); TOTAL CELLS COUNTED % (AUTO) 100 %; WHITE BLOOD COUNT 6.3 10^3/uL (4.0-10.5)
[2020-02-14 05:26] LABS: HEMOGLOBIN 6.4 g/dL (12.0-15.5)
[2020-02-14 05:29] LABS: INTERNATIONAL RATION (INR) 2.36; PROTHROMBIN TIME 25.8 SEC (11.4-15.4)
[2020-02-14] MEDS ORDERED: FUROSEMIDE INJ/PF 20 MG/2 ML SDV IV PRN (05:34)
[2020-02-14] MEDS ORDERED: NORMAL SALINE 250 ML IV PRN ×2 (05:34)
[2020-02-14 05:45] LABS: ALBUMIN 2.5 g/dL (3.5-5.0); ALKALINE PHOSPHATASE 110 U/L (38-126); ANION GAP 9 (5-19); ASPARTATE AMINO TRANSFERASE 60 U/L (14-36); BILIRUBIN,DIRECT 2.6 mg/dL (0.0-0.4); BILIRUBIN,TOTAL 3.5 mg/dL (0.2-1.3); BLOOD UREA NITROGEN 6 mg/dL (7-20); CALCIUM 8.1 mg/dL (8.4-10.2); CARBON DIOXIDE 22 mmol/L (22-30); CHLORIDE 100 mmol/L (98-107); GLUCOSE 73 mg/dL (75-110); POTASSIUM 3.2 mmol/L (3.6-5.0)
[2020-02-14 06:51] LABS: FOLATE 7.63 ng/mL (>2.76)
[2020-02-14 08:17] LABS: ABSOLUTE BASOPHILS # (AUTO) 0.1 10^3/uL (0.0-0.2); ABSOLUTE LYMPHOCYTES (AUTO) 1.2 10^3/uL (0.5-4.7); ABSOLUTE MONOCYTES (AUTO) 0.2 10^3/uL (0.1-1.4); ABSOLUTE NEUT (AUTO) 4.8 10^3/uL (1.7-8.2); BASOPHILS % (AUTO) 0.8 % (0-2); EOSINOPHILS % (AUTO) 0.6 % (0-6); LYMPHOCYTES % (AUTO) 18.9 % (13-45); MEAN CORPUSCULAR HEMOGLOBIN 36.5 pg (27.0-33.4); MEAN CORPUSCULAR HGB CONC 33.6 g/dL (32.0-36.0); MEAN CORPUSCULAR VOLUME 109 fl (80-97); MONOCYTES % (AUTO) 3.3 % (3-13); PLATELET COUNT 123 10^3/uL (150-450); RED BLOOD COUNT 1.75 10^6/uL (3.72-5.28); RED CELL DISTRIBUTION WIDTH 17.6 % (11.5-14.0); SEGMENTED NEUTROPHILS % (AUTO) 76.4 % (42-78); TOTAL CELLS COUNTED % (AUTO) 100 %; WHITE BLOOD COUNT 6.3 10^3/uL (4.0-10.5)
[2020-02-14 08:23] LABS: HEMOGLOBIN 6.4 g/dL (12.0-15.5)
[2020-02-14] MEDS ORDERED: MIDODRINE HCL 5 MG TABLET PO SCH (10:00)
[2020-02-14] MEDS ORDERED: MULTIVITAMINS W-IRON TABLET, CHEWABLE PO SCH (10:00)
[2020-02-14] MEDS ORDERED: MULTIVITAMIN (INFANT) W-IRON DROPS 50 ML PO SCH (10:00)
[2020-02-14] MEDS ORDERED: MAGNESIUM SULFATE INJ 8 MEQ/2 ML IV SCH (10:00)
[2020-02-14] MEDS: PANTOPRAZOLE SODIUM 40 MG VIAL IV SCH ×2 (10:03→21:56)
[2020-02-14] MEDS: FOLIC ACID 1 MG TABLET PO SCH (10:04)
[2020-02-14] MEDS: RIFAXIMIN 550 MG TABLET PO SCH ×2 (10:04→21:56)
[2020-02-14] MEDS: THIAMINE HCL 100 MG TABLET PO SCH (10:04)
[2020-02-14] MEDS: MIDODRINE HCL 5 MG TABLET PO SCH ×3 (10:06→18:14)
[2020-02-14] MEDS: MAGNESIUM SULFATE/D5W 1 GM/100 ML RTUPB IV SCH ×2 (10:21→21:56)
[2020-02-14] MEDS: POTASSIUM CHLORIDE 20 MEQ PACKET PO SCH ×2 (12:06→21:56)
[2020-02-14] MEDS: OXYCODONE HCL IR 5 MG TABLET PO PRN ×2 (12:06→22:56)
--- NOTE | 2020-02-14 17:28 | PDOC PROGRESS REPORT ---
Subjective Subjective:: Patient admitted for worsening abdominal distention,, abdominal pain, and shortness of breath. After admission, patient hemoglobin had acute drop to 6.4. And this was repeated with the same result. Patient's blood pressures been lower limit normal since admission and her midodrine has been increased. She has her 1 unit PRBC with a recheck hemoglobin thereafter. Bladder scan to be done and she has now been given a Acosta catheter placed for strict I's and O's. Patient denies any bleeding in her stool/urine/sputum/vomit. She does not have any potential sources of bleeding on exam either. Subcutaneous heparin was ordered on admission and I have discontinued this today. Potassium is low we will replete this. I have ordered a pathology review of her blood smear. GI consulted. Patient has abdominal discomfort but otherwise no new complaints. Reason For Visit: ABDOMINAL PAIN,ASCITES,HEPATIC CIRRHOSIS Physical Exam Vital Signs: Temp Pulse Resp BP Pulse Ox 97.9 F 74 14 89/64 L 98 02/14/20 16:24 02/14/20 16:24 02/14/20 16:24 02/14/20 16:24 02/14/20 16:24 Intake & Output 02/13/20 02/14/20 02/15/20 06:59 06:59 06:59 Intake Total 1350 100 Balance 1350 100 Weight 45 kg General appearance: PRESENT: no acute distress, well-developed, well-nourished Head exam: PRESENT: atraumatic, normocephalic Eye exam: PRESENT: conjunctiva pink Mouth exam: PRESENT: moist Respiratory exam: PRESENT: clear to auscultation valentin. ABSENT: rales, rhonchi, wheezes Cardiovascular exam: PRESENT: RRR. ABSENT: diastolic murmur, rubs, systolic murmur GI/Abdominal exam: PRESENT: ascites, distended - Large, soft, tenderness - Mild. ABSENT: mass, rebound, rigid Extremities exam: PRESENT: pedal edema Neurological exam: PRESENT: alert, awake, oriented to person, oriented to place, oriented to time, oriented to situation Psychiatric exam: PRESENT: flat affect, normal mood Skin exam: PRESENT: dry, intact, warm Results Laboratory Results: 02/14/20 07:22 02/14/20 05:06 02/13/20 02/14/20 02/14/20 16:58 05:06 05:06 WBC 6.3 RBC 1.76 L Hgb 6.4 L D Hct 19.1 L MCV 109 H MCH 36.2 H MCHC 33.2 RDW 17.3 H Plt Count 129 L Seg Neutrophils % 69.4 Retic Count (auto) 3.24 H Sodium 131.0 L Potassium 3.2 L Chloride 100 Carbon Dioxide 22 Anion Gap 9 BUN 6 L Creatinine 0.60 Est GFR ( Amer) > 60 Glucose 73 L Calcium 8.1 L Magnesium 1.4 L Iron 42.0 TIBC 98 L % Saturation 43 Ferritin 1160.00 H Total Bilirubin 3.5 H AST 60 H Alkaline Phosphatase 110 Ammonia Total Protein 5.0 L Albumin 2.5 L Vitamin B12 > 1000.0 H Folate 7.63 Urine Color HORTENSIA Urine Appearance SLIGHTLY-CLOUDY Urine pH 5.0 Ur Specific Sargents 1.054 Urine Protein 30 H Urine Glucose (UA) NEGATIVE Urine Ketones NEGATIVE Urine Blood NEGATIVE Urine Nitrite NEGATIVE Ur Leukocyte Esterase NEGATIVE Urine WBC (Auto) 3 Urine RBC (Auto) 6 Blood Type Antibody Screen 02/14/20 02/14/20 02/14/20 05:06 07:22 07:22 WBC 6.3 RBC 1.75 L Hgb 6.4 L Hct 19.0 L MCV 109 H MCH 36.5 H MCHC 33.6 RDW 17.6 H Plt Count 123 L Seg Neutrophils % 76.4 Retic Count (auto) Sodium Potassium Chloride Carbon Dioxide Anion Gap BUN Creatinine Est GFR ( Amer) Glucose Calcium Magnesium Iron TIBC % Saturation Ferritin Total Bilirubin AST Alkaline Phosphatase Ammonia 40.6 H Total Protein Albumin Vitamin B12 Folate Urine Color Urine Appearance Urine pH Ur Specific Sargents Urine Protein Urine Glucose (UA) Urine Ketones Urine Blood Urine Nitrite Ur Leukocyte Esterase Urine WBC (Auto) Urine RBC (Auto) Blood Type O POSITIVE Antibody Screen NEGATIVE Impressions: Abdomen/Pelvis CT 02/13/20 14:59 IMPRESSION: Moderate ascites, increased compared to 01/30/2020 Increasing bilateral pleural effusions Profound attenuation of the liver from fatty infiltration Assessment and Plan - Diagnosis (1) Ascites Qualifiers: Ascites type: due to alcoholic cirrhosis Qualified Code(s): K70.31 - Alcoholic cirrhosis of liver with ascites Is this a current diagnosis for this admission?: Yes Plan: Due to severe alcoholic cirrhosis Unable to get paracentesis due to significantly elevated INR, give vitamin K and recheck INR May worsen with transfusions, IV Lasix ordered with strict I/O and Acosta catheter (2) Anemia Qualifiers: Anemia type: other cause Other causes of anemia: other cause, not classified Qualified Code(s): D64.89 - Other specified anemias Is this a current diagnosis for this admission?: Yes Plan: Unclear etiology as patient has no signs of bleeding and denies any bleeding in stool/sputum/vomit/urine Hemoglobin down to 6.4 on admission, transfused 1 unit PRBC Not iron deficient and normal B12/folate; likely either acute on chronic blood loss versus anemia of chronic disease Transfuse to hemoglobin of at least 7 GI consulted (3) Coagulopathy Is this a current diagnosis for this admission?: Yes Plan: INR elevated up to 2.36 on admission, given vitamin K (4) Acute hypoxemic respiratory failure Is this a current diagnosis for this admission?: Yes Plan: Due to volume overload from ascites and cirrhosis Lasix Paracentesis when coagulopathy resolves (5) Cirrhosis of liver Qualifiers: Hepatic cirrhosis type: alcoholic cirrhosis Ascites presence: with ascites Qualified Code(s): K70.31 - Alcoholic cirrhosis of liver with ascites Is this a current diagnosis for this admission?: Yes Plan: Per admitting physician: "History of heavy alcohol abuse. Recently diagnosed with hepatic cirrhosis with varices. As per chart review patient had upper GI endoscopy in [place] and was told that she had bad varices. Denies any hemoptysis, hematemesis, hematuria, melena or hematochezia. Alert and oriented x3 no sign of hepatic encephalopathy. P.o. rifaximin. P.o. lactulose PRN titrate to have 2-3 soft bowel movements daily. Lasix and Aldactone if BP is allows. Monitor for bleeding. Monitor electrolytes and volume status. Avoid hepatotoxic medications. Gastroenterology consulted." Patient denies still abusing alcohol (6) Hypotension Qualifiers: Hypotension type: other hypotension type Qualified Code(s): I95.89 - Other hypotension Is this a current diagnosis for this admission?: Yes Plan: Per admitting physician: "Likely due to intravascular volume depletion due to underlying severe cirrhosis. Denies any lightheadedness, syncope or presyncope. No sign of sepsis, mild leukocytosis, denies any fever. Monitor vitals, IV albumin, start on midodrine and adjust dosage as needed. Avoid fluid resuscitation if possible." 02/14/2020 Increased dose of midodrine, transfuse 1 unit PRBC (7) Macrocytic anemia Is this a current diagnosis for this admission?: Yes Plan: Likely due to alcoholic cirrhosis. Denies any hematemesis, hemoptysis, hem aturia, melena or hematochezia. -Monitor H&H Iron studies consistent with anemia of chronic disease Normal folic acid, B12, multivitamins, encourage EtOH abstinence. (8) Protein-calorie malnutrition, moderate Is this a current diagnosis for this admission?: Yes Plan: Due to underlying severe hepatic cirrhosis. Consult Registered dietitian. - Time Time Spent with patient: 35 or more minutes Medications reviewed and adjusted accordingly: Yes Anticipated Discharge Disposition: [facility] Anticipated Discharge Timeframe: within 72 hours - Inpatient Certification Based on my medical assessment, after consideration of the patient's comorbidities, presenting symptoms, or acuity I expect that the services needed warrant INPATIENT care.: Yes I certify that my determination is in accordance with my understanding of Medicare's requirements for reasonable and necessary INPATIENT services [42 CFR 412.3e].: Yes Medical Necessity: Significant Comorbidiites Make Outpatient Treatment Too Risky, Need Close Monitoring Due to Risk of Patient Decompensation, Risk of Complication if Not Cared For in Hospital, Risk of Diagnosis Which Will Require Inpatient Eval/Care/Monitoring
[2020-02-14] MEDS ORDERED: PHYTONADIONE 5 MG TABLET PO ONE (18:15)
[2020-02-14 22:27] LABS: ABSOLUTE EOSINOPHILS # (AUTO) 0.1 10^3/uL (0.0-0.6); ABSOLUTE LYMPHOCYTES (AUTO) 1.4 10^3/uL (0.5-4.7); ABSOLUTE MONOCYTES (AUTO) 0.3 10^3/uL (0.1-1.4); ABSOLUTE NEUT (AUTO) 5.2 10^3/uL (1.7-8.2); BASOPHILS % (AUTO) 0.4 % (0-2); EOSINOPHILS % (AUTO) 0.7 % (0-6); LYMPHOCYTES % (AUTO) 20.1 % (13-45); MEAN CORPUSCULAR HEMOGLOBIN 34.8 pg (27.0-33.4); MONOCYTES % (AUTO) 3.8 % (3-13); PLATELET COUNT 129 10^3/uL (150-450); RED BLOOD COUNT 2.54 10^6/uL (3.72-5.28); TOTAL CELLS COUNTED % (AUTO) 100 %
[2020-02-14 22:28] LABS: HEMOGLOBIN 8.8 g/dL (12.0-15.5); MEAN CORPUSCULAR VOLUME 102 fl (80-97)
[2020-02-15 04:51] LABS: INTERNATIONAL RATION (INR) 2.11; PROTHROMBIN TIME 23.7 SEC (11.4-15.4)
[2020-02-15] MEDS: OXYCODONE HCL IR 5 MG TABLET PO PRN ×3 (04:57→21:06)
--- NOTE | 2020-02-15 08:03 | Progress Note ---
Provider Note Provider Note: Brief note chart reviewed elevated INR and currently cannot get paracentesis patient is not a candidate for EGD as well since INR is significantly elevated alcoholic cirrhosis with ascites would presumptively treat with antibiotics since SBP is also a risk factor for variceal bleeding may have to consider transfer to tertiary institution since interventional radiology with TIPS placement may be necessary full note will be dictated continue to correct INR with cirrhosis , BP will be on the lower side treating " relative hypotension " will put patient at risk for variceal bleeding and since cannot have EGD yet, this would compromise the patient. would recommend sandostatin, and PPI
[2020-02-15] MEDS: POTASSIUM CHLORIDE 20 MEQ PACKET PO SCH ×2 (09:37→21:06)
[2020-02-15] MEDS: PANTOPRAZOLE SODIUM 40 MG VIAL IV SCH ×2 (09:37→21:06)
[2020-02-15] MEDS: RIFAXIMIN 550 MG TABLET PO SCH ×2 (09:37→21:06)
[2020-02-15] MEDS: MIDODRINE HCL 5 MG TABLET PO SCH ×3 (09:37→17:31)
[2020-02-15] MEDS: FOLIC ACID 1 MG TABLET PO SCH (09:38)
[2020-02-15] MEDS: THIAMINE HCL 100 MG TABLET PO SCH (09:38)
[2020-02-15] MEDS ORDERED: PHYTONADIONE 5 MG TABLET PO ONE ×2 (09:40→11:00)
--- NOTE | 2020-02-15 09:47 | PDOC CONSULTATION ---
Consultation Consult Date: 02/15/20 Provider Consulted: LUCIO VELA Consult reason:: abdominal pain probable SBP. cirhosis. ascites History of Present Illness Admission Date/PCP: 02/13/20 18:31 History of Present Illness: STEPHANIE MONTELONGO is a 55 year old female patient previously seen at [facility] admitted here for abdominal pain history of cirrhosis with likely etiology secondary to ETOH had EGD and has varices has ascites and presents with abdominal pain due to coagulopathy, not a candidate for paracentesis would treat presumptively since patient at risk of massive variceal bleeding would recommend Sandostatin and PPi patient not a candidate for EGD at this point will need correction of her INR with VitK would start empiric antibiotics CT scan reviewed no indication or mention of portal vein thrombosis, likely more consistent with cirrhosis than fatty infiltration does have thrombocytopenia and elevation of INR consistent more with cirrhosis abnormal LFT's as well Past Medical History Endocrine Medical History: Reports: Hypothyroidism Malignancy Medical History: Reports: Breast Cancer - recently diagnosed in 2019; untreated GI Medical History: Reports: Cirrhosis Psychiatric Medical History: Denies: Depression Past Surgical History Past Surgical History: Reports: Orthopedic Surgery - left knee replacement Social History Smoking Status: Current Every Day Smoker Cigarettes Packs Per Day: 0.5 Frequency of Alcohol Use: Occasional Hx Recreational Drug Use: No Drugs: None Hx Prescription Drug Abuse: No Family History Family History: Reviewed & Not Pertinent, Malignancy Parental Family History Reviewed: Yes Children Family History Reviewed: Unknown Sibling(s) Family History Reviewed.: Unknown Medication/Allergy Home Medications: No Home Medications 08/24/19 Allergies/Adverse Reactions: No Known Allergies Allergy (Verified 02/13/20 12:51) Review of Systems Constitutional: ABSENT: fever(s), night sweats, weakness Eyes: ABSENT: visual disturbances Ears: ABSENT: hearing changes Nose, Mouth, and Throat: ABSENT: mouth pain, sore throat Cardiovascular: ABSENT: orthropnea, palpitations Respiratory: ABSENT: dyspnea, hemoptysis Gastrointestinal: ABSENT: dysphagia, melena Genitourinary: ABSENT: dysuria, hematuria Musculoskeletal: ABSENT: deformity, joint swelling Neurological: ABSENT: syncope, tingling, tremor(s), vertigo, weakness Endocrine: ABSENT: polydipsia, polyphagia, polyuria Hematologic/Lymphatic: ABSENT: easy bruising Physical Exam Vital Signs: Temp Pulse Resp BP Pulse Ox 98.3 F 87 17 92/69 L 94 09/01/20 08:18 02/15/20 07:56 02/15/20 07:56 02/15/20 07:56 02/15/20 07:56 Intake & Output 02/14/20 02/15/20 02/16/20 06:59 06:59 06:59 Intake Total 1350 820 Output Total 325 Balance 1350 495 Weight 45 kg 53.2 kg General appearance: PRESENT: no acute distress Head exam: PRESENT: normocephalic Eye exam: PRESENT: EOMI, PERRLA. ABSENT: periorbital swelling, scleral icterus Mouth exam: PRESENT: moist, neck supple Throat exam: ABSENT: tonsillar exudate, tonsillogmegaly Neck exam: ABSENT: meningismus, tenderness, thyromegaly Cardiovascular exam: PRESENT: RRR, +S1, +S2 GI/Abdominal exam: PRESENT: ascites, soft. ABSENT: rebound, rigid Extremities exam: ABSENT: joint swelling Musculoskeletal exam: PRESENT: full ROM Neurological exam: PRESENT: oriented to time, oriented to situation, CN II-XII grossly intact Focused psych exam: ABSENT: restlessness Skin exam: ABSENT: mottled, pallor, urticaria, vesicles Results Laboratory Results: 02/14/20 21:59 02/14/20 05:06 02/14/20 02/14/20 07:22 21:59 WBC 7.0 RBC 2.54 L Hgb 8.8 L D Hct 26.0 L MCV 102 H D MCH 34.8 H MCHC 34.0 RDW 22.0 H Plt Count 129 L Seg Neutrophils % 75.0 Blood Type O POSITIVE Antibody Screen NEGATIVE Impressions: Abdomen/Pelvis CT 02/13/20 14:59 IMPRESSION: Moderate ascites, increased compared to 01/30/2020 Increasing bilateral pleural effusions Profound attenuation of the liver from fatty infiltration Assessment & Plan - Diagnosis (1) Abdominal pain Qualifiers: Abdominal location: generalized Qualified Code(s): R10.84 - Generalized abdominal pain Is this a current diagnosis for this admission?: Yes Plan: likely consistent with SBP due to elevated INR, not able to confirm treat with empiric antibiotics SBP is a risk factor for variceal bleeding (2) Ascites Qualifiers: Ascites type: due to alcoholic cirrhosis Qualified Code(s): K70.31 - Alcoholic cirrhosis of liver with ascites Is this a current diagnosis for this admission?: Yes Plan: cannot have paracentesis for now also not a candidate for EGD treat with sandostatin and PPI correct INR and once INR< 1.5, can have EGD may need transfer since needs TIPS if no portal vein thrombosis (3) Cirrhosis of liver Qualifiers: Hepatic cirrhosis type: alcoholic cirrhosis Ascites presence: with ascites Qualified Code(s): K70.31 - Alcoholic cirrhosis of liver with ascites Is this a current diagnosis for this admission?: Yes Plan: ? if only due to etoh check ITA, AMA iron studies , ceruloplasmin hepatitis profile will follow would not treat " relative hypotension" since increasing intravascular pressure would patient at increased risk of variceal bleeding she likely will need TIPS. - Time Time Spent: 50 to 70 Minutes
[2020-02-15] MEDS: LACTULOSE SYRUP 20 GM/30 ML UDCUP PO SCH ×2 (10:43→21:06)
--- NOTE | 2020-02-15 17:54 | PDOC PROGRESS REPORT ---
Subjective Subjective:: Patient admitted for worsening abdominal distention,, abdominal pain, and shortness of breath. After admission, patient hemoglobin had acute drop to 6.4. And this was repeated with the same result. Patient's blood pressures been lower limit normal since admission and her midodrine has been increased. She has her 1 unit PRBC with a recheck hemoglobin thereafter. Bladder scan to be done and she has now been given a Acosta catheter placed for strict I's and O's. Patient denies any bleeding in her stool/urine/sputum/vomit. She does not have any potential sources of bleeding on exam either. Subcutaneous heparin was ordered on admission and I have discontinued this today. Potassium is low we will replete this. I have ordered a pathology review of her blood smear. GI consulted. Patient has abdominal discomfort but otherwise no new complaints. 02/15/2020 Patient feeling mildly better today from an energy standpoint but her abdomen seems to be more distended. She would certainly benefit from a paracentesis but her INR is still not low enough for to have this done. I have given her an additional dose of vitamin K today we will recheck her INR this afternoon. Hemoglobin is gone up to 8.8 from the 1 unit PRBC she was given yesterday. Blood pressure remains low. GI consulted and they recommended patient be transferred to a tertiary facility where she could potentially have a TIPS procedure. I think this is a good idea as I am unable to properly diurese her with Lasix due to low BP and her urine output has reportedly been dropping off. I think she is extremely high risk to develop hepatorenal syndrome if she continues this way. We are very limited in our options to remove volume from her safely due to low BP. I have reached out to multiple facilities about transferring recently and have been denied. I will need to extend my search to facilities outside the local area. Patient has no new complaints today otherwise. Reason For Visit: ABDOMINAL PAIN,ASCITES,HEPATIC CIRRHOSIS Physical Exam Vital Signs: Temp Pulse Resp BP Pulse Ox 97.7 F 76 17 104/72 98 02/15/20 15:33 02/15/20 15:33 02/15/20 15:33 02/15/20 15:33 02/15/20 15:33 Intake & Output 02/14/20 02/15/20 02/16/20 06:59 06:59 06:59 Intake Total 1350 820 30 Output Total 325 Balance 1350 495 30 Weight 45 kg 53.2 kg 53.2 kg General appearance: PRESENT: no acute distress, thin Head exam: PRESENT: atraumatic, normocephalic Eye exam: PRESENT: conjunctiva pink Mouth exam: PRESENT: moist Respiratory exam: PRESENT: clear to auscultation valentin. ABSENT: rales, rhonchi, wheezes Cardiovascular exam: PRESENT: RRR. ABSENT: diastolic murmur, rubs, systolic murmur GI/Abdominal exam: PRESENT: ascites, distended, normal bowel sounds, soft, tenderness - Mild. ABSENT: guarding, mass, organolmegaly, rebound Neurological exam: PRESENT: alert, awake, oriented to person, oriented to place, oriented to time, oriented to situation Psychiatric exam: PRESENT: appropriate affect, normal mood Skin exam: PRESENT: dry, intact, warm Results Laboratory Results: 02/14/20 21:59 02/14/20 05:06 02/14/20 02/15/20 21:59 04:07 WBC 7.0 RBC 2.54 L Hgb 8.8 L D Hct 26.0 L MCV 102 H D MCH 34.8 H MCHC 34.0 RDW 22.0 H Plt Count 129 L Seg Neutrophils % 75.0 Magnesium 1.9 Impressions: Abdomen/Pelvis CT 02/13/20 14:59 IMPRESSION: Moderate ascites, increased compared to 01/30/2020 Increasing bilateral pleural effusions Profound attenuation of the liver from fatty infiltration Assessment and Plan - Diagnosis (1) Ascites Qualifiers: Ascites type: due to alcoholic cirrhosis Qualified Code(s): K70.31 - Alco holic cirrhosis of liver with ascites Is this a current diagnosis for this admission?: Yes Plan: Due to severe alcoholic cirrhosis Unable to get paracentesis due to significantly elevated INR, give vitamin K and recheck INR May worsen with transfusions, IV Lasix ordered with strict I/O and Acosta catheter 02/15/2020 GI consulted: Recommends transfer to a facility that can perform a TIPS procedure as we are limited our ability to remove fluid and treat her cirrhosis and ascites without dropping her already low BP Lasix as BP allows Paracentesis ordered though low BP and elevated INR been prohibiting this from getting done so far, given vitamin K x2 (2) Anemia Qualifiers: Anemia type: other cause Other causes of anemia: other cause, not classified Qualified Code(s): D64.89 - Other specified anemias Is this a current diagnosis for this admission?: Yes Plan: Unclear etiology as patient has no signs of bleeding and denies any bleeding in stool/sputum/vomit/urine Hemoglobin down to 6.4 on admission, transfused 1 unit PRBC, hemoglobin yogi to 8.8 the next day Not iron deficient and normal B12/folate; likely either acute on chronic blood loss versus anemia of chronic disease Transfuse to hemoglobin of at least 7 GI consulted (3) Coagulopathy Is this a current diagnosis for this admission?: Yes Plan: INR elevated up to 2.36 on admission, given vitamin K x2 (4) Acute hypoxemic respiratory failure Is this a current diagnosis for this admission?: Yes (5) Cirrhosis of liver Qualifiers: Hepatic cirrhosis type: alcoholic cirrhosis Ascites presence: with ascites Qualified Code(s): K70.31 - Alcoholic cirrhosis of liver with ascites Is this a current diagnosis for this admission?: Yes (6) Hypotension Qualifiers: Hypotension type: other hypotension type Qualified Code(s): I95.89 - Other hypotension Is this a current diagnosis for this admission?: Yes (7) Macrocytic anemia Is this a current diagnosis for this admission?: Yes (8) Protein-calorie malnutrition, moderate Is this a current diagnosis for this admission?: Yes - Time Time Spent with patient: 25-34 minutes Medications reviewed and adjusted accordingly: Yes Anticipated Discharge Disposition: Tertiary Anticipated Discharge Timeframe: within 48 hours - Inpatient Certification Based on my medical assessment, after consideration of the patient's comorbidities, presenting symptoms, or acuity I expect that the services needed warrant INPATIENT care.: Yes I certify that my determination is in accordance with my understanding of Medicare's requirements for reasonable and necessary INPATIENT services [42 CFR 412.3e].: Yes Medical Necessity: Significant Comorbidiites Make Outpatient Treatment Too Risky, Need Close Monitoring Due to Risk of Patient Decompensation, Need for Surgery, Risk of Complication if Not Cared For in Hospital, Risk of Diagnosis Which Will Require Inpatient Eval/Care/Monitoring
[2020-02-15 18:45] LABS: INTERNATIONAL RATION (INR) 2.04; PROTHROMBIN TIME 23.1 SEC (11.4-15.4)
[2020-02-15] MEDS: CEFTRIAXONE 1 GM/D5W RTU 1 GM/50 ML RTUPB IV SCH (21:07)
[2020-02-16] MEDS: OXYCODONE HCL IR 5 MG TABLET PO PRN ×3 (03:59→19:40)
[2020-02-16 04:14] LABS: ABSOLUTE LYMPHOCYTES (AUTO) 1.7 10^3/uL (0.5-4.7); ABSOLUTE MONOCYTES (AUTO) 0.3 10^3/uL (0.1-1.4); ABSOLUTE NEUT (AUTO) 6.6 10^3/uL (1.7-8.2); BASOPHILS % (AUTO) 0.3 % (0-2); EOSINOPHILS % (AUTO) 0.5 % (0-6); HEMATOCRIT 31.3 % (36.0-47.0); HEMOGLOBIN 10.5 g/dL (12.0-15.5); LYMPHOCYTES % (AUTO) 19.4 % (13-45); MEAN CORPUSCULAR HEMOGLOBIN 34.7 pg (27.0-33.4); MEAN CORPUSCULAR HGB CONC 33.6 g/dL (32.0-36.0); MEAN CORPUSCULAR VOLUME 103 fl (80-97); MONOCYTES % (AUTO) 3.9 % (3-13); PLATELET COUNT 106 10^3/uL (150-450); RED BLOOD COUNT 3.03 10^6/uL (3.72-5.28); RED CELL DISTRIBUTION WIDTH 21.9 % (11.5-14.0); SEGMENTED NEUTROPHILS % (AUTO) 75.9 % (42-78); TOTAL CELLS COUNTED % (AUTO) 100 %; WHITE BLOOD COUNT 8.6 10^3/uL (4.0-10.5)
[2020-02-16 04:28] LABS: ANION GAP 5 (5-19); BLOOD UREA NITROGEN 4 mg/dL (7-20); CARBON DIOXIDE 26 mmol/L (22-30); CHLORIDE 101 mmol/L (98-107); GLUCOSE 99 mg/dL (75-110); POTASSIUM 4.2 mmol/L (3.6-5.0)
[2020-02-16] MEDS: PANTOPRAZOLE SODIUM 40 MG VIAL IV SCH ×2 (11:11→22:21)
[2020-02-16] MEDS: LACTULOSE SYRUP 20 GM/30 ML UDCUP PO SCH ×2 (11:12→22:21)
[2020-02-16] MEDS: FOLIC ACID 1 MG TABLET PO SCH (11:13)
[2020-02-16] MEDS: POTASSIUM CHLORIDE 20 MEQ PACKET PO SCH (11:13)
[2020-02-16] MEDS: MIDODRINE HCL 5 MG TABLET PO SCH ×3 (11:13→18:49)
[2020-02-16] MEDS: THIAMINE HCL 100 MG TABLET PO SCH (11:18)
[2020-02-16] MEDS: RIFAXIMIN 550 MG TABLET PO SCH ×2 (11:19→22:21)
--- NOTE | 2020-02-16 18:08 | PDOC PROGRESS REPORT ---
Subjective Subjective:: Patient admitted for worsening abdominal distention,, abdominal pain, and shortness of breath. After admission, patient hemoglobin had acute drop to 6.4. And this was repeated with the same result. Patient's blood pressures been lower limit normal since admission and her midodrine has been increased. She has her 1 unit PRBC with a recheck hemoglobin thereafter. Bladder scan to be done and she has now been given a Acosta catheter placed for strict I's and O's. Patient denies any bleeding in her stool/urine/sputum/vomit. She does not have any potential sources of bleeding on exam either. Subcutaneous heparin was ordered on admission and I have discontinued this today. Potassium is low we will replete this. I have ordered a pathology review of her blood smear. GI consulted. Patient has abdominal discomfort but otherwise no new complaints. 02/15/2020 Patient feeling mildly better today from an energy standpoint but her abdomen seems to be more distended. She would certainly benefit from a paracentesis but her INR is still not low enough for to have this done. I have given her an additional dose of vitamin K today we will recheck her INR this afternoon. Hemoglobin is gone up to 8.8 from the 1 unit PRBC she was given yesterday. Blood pressure remains low. GI consulted and they recommended patient be transferred to a tertiary facility where she could potentially have a TIPS procedure. I think this is a good idea as I am unable to properly diurese her with Lasix due to low BP and her urine output has reportedly been dropping off. I think she is extremely high risk to develop hepatorenal syndrome if she continues this way. We are very limited in our options to remove volume from her safely due to low BP. I have reached out to multiple facilities about transferring recently and have been denied. I will need to extend my search to facilities outside the local area. Patient has no new complaints today otherwise. 02/16/2020 Patient does not seem to be changed very much from yesterday for the better for the worse. However on exam her abdomen seems to be a bit more distended today but not significantly. Her INR has not really budged since giving her vitamin K twice. Doubt she would be able to tolerate hemodynamically getting a paracentesis anyway. I have called the transfer center at [facility] to see if she can be transferred there and she has been accepted. They are at capacity and she should be transferred there within the next 48 hours according to the transfer center personnel. Patient has been accepted by Dr. FISCHER on the medical staff and I discussed the case with the physician relations representative as well who agreed with the transfer for evaluation of TIPS. Hemoglobin is markedly higher at 10.5 which may be a lab error. Her creatinine remained stable though her urine out put is a meager 400 cc since yesterday. Unclear if this is being accurately tracked or not. Other than generalized fatigue and weakness and distended abdomen patient has no new complaints today. Reason For Visit: ABDOMINAL PAIN,ASCITES,HEPATIC CIRRHOSIS Physical Exam Vital Signs: Temp Pulse Resp BP Pulse Ox 98.0 F 99 18 108/74 99 02/16/20 16:00 02/16/20 16:00 02/16/20 16:00 02/16/20 16:00 02/16/20 12:00 Intake & Output 02/15/20 02/16/20 02/17/20 06:59 06:59 06:59 Intake Total 820 80 Output Total 325 100 Balance 495 -20 Weight 53.2 kg 52.5 kg Exam: General appearance: PRESENT: no acute distress, thin, states her abdomen is still rather distended and uncomfortable Head exam: PRESENT: atraumatic, normocephalic Eye exam: PRESENT: conjunctiva pink Mouth exam: PRESENT: moist Respiratory exam: PRESENT: clear to auscultation valentin. ABSENT: rales, rhonchi, wheezes Cardiovascular exam: PRESENT: RRR. ABSENT: diastolic murmur, rubs, systolic murmur GI/Abdominal exam: PRESENT: ascites, distended, normal bowel sounds, soft, tenderness - Mild. ABSENT: guarding, mass, organolmegaly, rebound Neurological exam: PRESENT: alert, awake, oriented to person, oriented to place, oriented to time, oriented to situation Psychiatric exam: PRESENT: appropriate affect, normal mood Skin exam: PRESENT: dry, intact, warm Results Laboratory Results: 02/16/20 03:54 02/16/20 03:54 02/16/20 02/16/20 03:54 03:54 WBC 8.6 RBC 3.03 L Hgb 10.5 L Hct 31.3 L MCV 103 H MCH 34.7 H MCHC 33.6 RDW 21.9 H Plt Count 106 L Seg Neutrophils % 75.9 Sodium 131.6 L Potassium 4.2 Chloride 101 Carbon Dioxide 26 Anion Gap 5 BUN 4 L Creatinine 0.39 L Est GFR ( Amer) > 60 Glucose 99 Calcium 8.0 L Impressions: Abdomen/Pelvis CT 02/13/20 14:59 IMPRESSION: Moderate ascites, increased compared to 01/30/2020 Increasing bilateral pleural effusions Profound attenuation of the liver from fatty infiltration Assessment and Plan - Diagnosis (1) Cirrhosis of liver Qualifiers: Hepatic cirrhosis type: alcoholic cirrhosis Ascites presence: with ascites Qualified Code(s): K70.31 - Alcoholic cirrhosis of liver with ascites Is this a current diagnosis for this admission?: Yes Plan: Per admitting physician: "History of heavy alcohol abuse. Recently diagnosed with hepatic cirrhosis with varices. As per chart review patient had upper GI endoscopy in [place] and was told that she had bad varices. Denies any hemoptysis, hematemesis, hematuria, melena or hematochezia. Alert and oriented x3 no sign of hepatic encephalopathy. P.o. rifaximin. P.o. lactulose PRN titrate to have 2-3 soft bowel movements daily. Lasix and Aldactone if BP is allows. Monitor for bleeding. Monitor electrolytes and volume status. Avoid hepatotoxic medications. Gastroenterology consulted." Patient denies still abusing alcohol 02/15/2022 Called [facility] and discussed the case with the hospitalist and vacuum drum drier operator both of whom agreed patient should be transferred to their tertiary facility Patient accepted to [facility] and we are awaiting a bed which patient should receive in the next 48 hours (2) Ascites Qualifiers: Ascites type: due to alcoholic cirrhosis Qualified Code(s): K70.31 - Alcoholic cirrhosis of liver with ascites Is this a current diagnosis for this admission?: Yes Plan: Due to severe alcoholic cirrhosis Unable to get paracentesis due to significantly elevated INR, give vitamin K and recheck INR May worsen with transfusions, IV Lasix ordered with strict I/O and Acosta catheter 02/15/2020 GI consulted: Recommends transfer to a facility that can perform a TIPS procedure as we are limited our ability to remove fluid and treat her cirrhosis and ascites without dropping her already low BP Lasix as BP allows Paracentesis ordered though low BP and elevated INR been prohibiting this from getting done so far, given vitamin K x2 02/15/2022 Abdomen perhaps a bit more distended today (3) Anemia Qualifiers: Anemia type: other cause Other causes of anemia: other cause, not classified Qualified Code(s): D64.89 - Other specified anemias Is this a current diagnosis for this admission?: Yes (4) Coagulopathy Is this a current diagnosis for this admission?: Yes (5) Acute hypoxemic respiratory failure Is this a current diagnosis for this admission?: Yes (6) Hypotension Qualifiers: Hypotension type: other hypotension type Qualified Code(s): I95.89 - Other hypotension Is this a current diagnosis for this admission?: Yes (7) Macrocytic anemia Is this a current diagnosis for this admission?: Yes (8) Protein-calorie malnutrition, moderate Is this a current diagnosis for this admission?: Yes - Time Time Spent with patient: 25-34 minutes Medications reviewed and adjusted accordingly: Yes Anticipated Discharge Disposition: Tertiary Anticipated Discharge Timeframe: within 48 hours - Inpatient Certification Based on my medical assessment, after consideration of the patient's comorbidities, presenting symptoms, or acuity I expect that the services needed warrant INPATIENT care.: Yes I certify that my determination is in accordance with my understanding of Medicare's requirements for reasonable and necessary INPATIENT services [42 CFR 412.3e].: Yes Medical Necessity: Significant Comorbidiites Make Outpatient Treatment Too Risky, Need Close Monitoring Due to Risk of Patient Decompensation, Need for Surgery, Risk of Complication if Not Cared For in Hospital, Risk of Diagnosis Which Will Require Inpatient Eval/Care/Monitoring
[2020-02-16] MEDS: SPIRONOLACTONE 25 MG TABLET PO SCH (18:49)
[2020-02-16] MEDS: FUROSEMIDE 20 MG TABLET PO SCH (18:51)
[2020-02-16] MEDS: CEFTRIAXONE 1 GM/D5W RTU 1 GM/50 ML RTUPB IV SCH (22:21)
[2020-02-17 07:42] LABS: ANION GAP 5 (5-19); BLOOD UREA NITROGEN 4 mg/dL (7-20); CALCIUM 7.9 mg/dL (8.4-10.2); CARBON DIOXIDE 24 mmol/L (22-30); CHLORIDE 101 mmol/L (98-107); GLUCOSE 95 mg/dL (75-110); POTASSIUM 3.9 mmol/L (3.6-5.0)
[2020-02-17] MEDS: THIAMINE HCL 100 MG TABLET PO SCH (09:50)
[2020-02-17] MEDS: OXYCODONE HCL IR 5 MG TABLET PO PRN ×3 (09:50→22:35)
[2020-02-17] MEDS: FOLIC ACID 1 MG TABLET PO SCH (09:50)
[2020-02-17] MEDS: MIDODRINE HCL 5 MG TABLET PO SCH ×3 (09:51→18:51)
[2020-02-17] MEDS: PANTOPRAZOLE SODIUM 40 MG VIAL IV SCH ×2 (09:52→21:56)
[2020-02-17] MEDS: LACTULOSE SYRUP 20 GM/30 ML UDCUP PO SCH ×2 (09:53→21:57)
[2020-02-17] MEDS: RIFAXIMIN 550 MG TABLET PO SCH ×2 (09:53→21:57)
[2020-02-17 11:09] LABS: ABSOLUTE MONOCYTES (AUTO) 0.4 10^3/uL (0.1-1.4); ABSOLUTE NEUT (AUTO) 7.4 10^3/uL (1.7-8.2); BASOPHILS % (AUTO) 0.5 % (0-2); EOSINOPHILS % (AUTO) 0.2 % (0-6); HEMATOCRIT 34.2 % (36.0-47.0); HEMOGLOBIN 11.4 g/dL (12.0-15.5); LYMPHOCYTES % (AUTO) 11.2 % (13-45); MEAN CORPUSCULAR HEMOGLOBIN 34.8 pg (27.0-33.4); MEAN CORPUSCULAR HGB CONC 33.4 g/dL (32.0-36.0); MEAN CORPUSCULAR VOLUME 104 fl (80-97); MONOCYTES % (AUTO) 4.9 % (3-13); RED BLOOD COUNT 3.28 10^6/uL (3.72-5.28); RED CELL DISTRIBUTION WIDTH 23.8 % (11.5-14.0); SEGMENTED NEUTROPHILS % (AUTO) 83.2 % (42-78); TOTAL CELLS COUNTED % (AUTO) 100 %; WHITE BLOOD COUNT 8.9 10^3/uL (4.0-10.5)
[2020-02-17 11:37] LABS: PLATELET COUNT 99 10^3/uL (150-450)
[2020-02-17] MEDS: FUROSEMIDE 20 MG TABLET PO SCH (16:34)
[2020-02-17] MEDS: SPIRONOLACTONE 25 MG TABLET PO SCH (16:34)
--- NOTE | 2020-02-17 18:39 | PDOC PROGRESS REPORT ---
Subjective Subjective:: Patient admitted for worsening abdominal distention,, abdominal pain, and shortness of breath. After admission, patient hemoglobin had acute drop to 6.4. And this was repeated with the same result. Patient's blood pressures been lower limit normal since admission and her midodrine has been increased. She has her 1 unit PRBC with a recheck hemoglobin thereafter. Bladder scan to be done and she has now been given a Acosta catheter placed for strict I's and O's. Patient denies any bleeding in her stool/urine/sputum/vomit. She does not have any potential sources of bleeding on exam either. Subcutaneous heparin was ordered on admission and I have discontinued this today. Potassium is low we will replete this. I have ordered a pathology review of her blood smear. GI consulted. Patient has abdominal discomfort but otherwise no new complaints. 02/15/2020 Patient feeling mildly better today from an energy standpoint but her abdomen seems to be more distended. She would certainly benefit from a paracentesis but her INR is still not low enough for to have this done. I have given her an additional dose of vitamin K today we will recheck her INR this afternoon. Hemoglobin is gone up to 8.8 from the 1 unit PRBC she was given yesterday. Blood pressure remains low. GI consulted and they recommended patient be transferred to a tertiary facility where she could potentially have a TIPS procedure. I think this is a good idea as I am unable to properly diurese her with Lasix due to low BP and her urine output has reportedly been dropping off. I think she is extremely high risk to develop hepatorenal syndrome if she continues this way. We are very limited in our options to remove volume from her safely due to low BP. I have reached out to multiple facilities about transferring recently and have been denied. I will need to extend my search to facilities outside the local area. Patient has no new complaints today otherwise. 02/16/2020 Patient does not seem to be changed very much from yesterday for the better for the worse. However on exam her abdomen seems to be a bit more distended today but not significantly. Her INR has not really budged since giving her vitamin K twice. Doubt she would be able to tolerate hemodynamically getting a paracentesis anyway. I have called the transfer center at [facility] to see if she can be transferred there and she has been accepted. They are at capacity and she should be transferred there within the next 48 hours according to the transfer center personnel. Patient has been accepted by Dr. FISCHER on the medical staff and I discussed the case with the plodding machine operator as well who agreed with the transfer for evaluation of TIPS. Hemoglobin is markedly higher at 10.5 which may be a lab error. Her creatinine remained stable though her urine out put is a meager 400 cc since yesterday. Unclear if this is being accurately tracked or not. Other than generalized fatigue and weakness and distended abdomen patient has no new complaints today. 02/17/2020 Per the recommendations of the network intelligence analyst I spoke with yesterday, I put the patient on oral Lasix and Aldactone. Her blood pressure seems to be holding its own today but is slightly lower. Patient denies any new complaints other than chronic generalized fatigue and weakness. Sodium is a bit lower and her blood cultures are negative. Hemoglobin has risen again to 11.4. This is probably due to increase in volume. Reason For Visit: ABDOMINAL PAIN,ASCITES,HEPATIC CIRRHOSIS Physical Exam Vital Signs: Temp Pulse Resp BP Pulse Ox 98.0 F 92 14 96/72 L 90 L 02/17/20 11:03 02/17/20 11:03 02/17/20 11:03 02/17/20 11:03 02/17/20 11:03 Intake & Output 02/16/20 02/17/20 02/18/20 06:59 06:59 06:59 Intake Total 80 460 390 Output Total 100 800 Balance -20 -340 390 Weight 52.5 kg 52.2 kg Exam: General appearance: PRESENT: no acute distress, thin, states she is rather fatigued today but overall feels a bit better Head exam: PRESENT: atraumatic, normocephalic Eye exam: PRESENT: conjunctiva pink Mouth exam: PRESENT: moist Respiratory exam: PRESENT: clear to auscultation valentin. ABSENT: rales, rhonchi, wheezes Cardiovascular exam: PRESENT: RRR. ABSENT: diastolic murmur, rubs, systolic murmur GI/Abdominal exam: PRESENT: ascites, distended, normal bowel sounds, soft, tenderness - Mild. ABSENT: guarding, mass, organolmegaly, rebound Neurological exam: PRESENT: alert, awake, oriented to person, oriented to place, oriented to time, oriented to situation Psychiatric exam: PRESENT: appropriate affect, normal mood Skin exam: PRESENT: dry, intact, warm Results Laboratory Results: 02/17/20 10:56 02/17/20 06:56 02/17/20 02/17/20 02/17/20 06:56 06:56 10:56 WBC Cancelled 8.9 RBC Cancelled 3.28 L Hgb Cancelled 11.4 L Hct Cancelled 34.2 L MCV Cancelled 104 H MCH Cancelled 34.8 H MCHC Cancelled 33.4 RDW Cancelled 23.8 H Plt Count Cancelled 99 L Seg Neutrophils % Cancelled 83.2 H Sodium 130.3 L Potassium 3.9 Chloride 101 Carbon Dioxide 24 Anion Gap 5 BUN 4 L Creatinine 0.40 L Est GFR ( Amer) > 60 Glucose 95 Calcium 7.9 L Impressions: Abdomen/Pelvis CT 02/13/20 14:59 IMPRESSION: Moderate ascites, increased compared to 01/30/2020 Increasing bilateral pleural effusions Profound attenuation of the liver from fatty infiltration Assessment and Plan - Diagnosis (1) Cirrhosis of liver Qualifiers: Hepatic cirrhosis type: alcoholic cirrhosis Ascites presence: with ascites Qualified Code(s): K70.31 - Alcoholic cirrhosis of liver with ascites Is this a current diagnosis for this admission?: Yes Plan: Per admitting physician: "History of heavy alcohol abuse. Recently diagnosed with hepatic cirrhosis with varices. As per chart review patient had upper GI endoscopy in [place] and was told that she had bad varices. Denies any hemoptysis, hematemesis, hematuria, melena or hematochezia. Alert and oriented x3 no sign of hepatic encephalopathy. P.o. rifaximin. P.o. lactulose PRN titrate to have 2-3 soft bowel movements daily. Lasix and Aldactone if BP is allows. Monitor for bleeding. Monitor electrolytes and volume status. Avoid hepatotoxic medications. Gastroenterology consulted." Patient denies still abusing alcohol 02/15/2022 Called [facility] and discussed the case with the hospitalist and network intelligence analyst both of whom agreed patient should be transferred to their tertiary facility Patient accepted to [facility] and we are awaiting a bed which patient should receive in the next 48 hours 02/17/2020 Accepted at [facility] but we are waiting on a bed Lower sodium Maintained on oral Lasix and Aldactone (2) Ascites Qualifiers: Ascites type: due to alcoholic cirrhosis Qualified Code(s): K70.31 - Alco holic cirrhosis of liver with ascites Is this a current diagnosis for this admission?: Yes (3) Anemia Qualifiers: Anemia type: other cause Other causes of anemia: other cause, not classified Qualified Code(s): D64.89 - Other specified anemias Is this a current diagnosis for this admission?: Yes (4) Coagulopathy Is this a current diagnosis for this admission?: Yes (5) Acute hypoxemic respiratory failure Is this a current diagnosis for this admission?: Yes (6) Hypotension Qualifiers: Hypotension type: other hypotension type Qualified Code(s): I95.89 - Other hypotension Is this a current diagnosis for this admission?: Yes (7) Macrocytic anemia Is this a current diagnosis for this admission?: Yes (8) Protein-calorie malnutrition, moderate Is this a current diagnosis for this admission?: Yes - Time Time Spent with patient: 25-34 minutes Medications reviewed and adjusted accordingly: Yes Anticipated Discharge Disposition: Tertiary Anticipated Discharge Timeframe: within 48 hours - Inpatient Certification Based on my medical assessment, after consideration of the patient's comorbidities, presenting symptoms, or acuity I expect that the services needed warrant INPATIENT care.: Yes I certify that my determination is in accordance with my understanding of Medicare's requirements for reasonable and necessary INPATIENT services [42 CFR 412.3e].: Yes Medical Necessity: Significant Comorbidiites Make Outpatient Treatment Too Risky, Need Close Monitoring Due to Risk of Patient Decompensation, Need for Surgery, Risk of Complication if Not Cared For in Hospital, Risk of Diagnosis Which Will Require Inpatient Eval/Care/Monitoring
[2020-02-17] MEDS: CEFTRIAXONE 1 GM/D5W RTU 1 GM/50 ML RTUPB IV SCH (21:57)
[2020-02-18] MEDS: OXYCODONE HCL IR 5 MG TABLET PO PRN ×3 (04:30→22:29)
[2020-02-18] MEDS: LACTULOSE SYRUP 20 GM/30 ML UDCUP PO SCH ×2 (09:42→22:29)
[2020-02-18] MEDS: RIFAXIMIN 550 MG TABLET PO SCH ×2 (09:44→22:29)
[2020-02-18] MEDS: SPIRONOLACTONE 25 MG TABLET PO SCH (09:44)
[2020-02-18] MEDS: MIDODRINE HCL 5 MG TABLET PO SCH ×3 (09:45→17:34)
[2020-02-18] MEDS: THIAMINE HCL 100 MG TABLET PO SCH (09:45)
[2020-02-18] MEDS: FUROSEMIDE 20 MG TABLET PO SCH (09:45)
[2020-02-18] MEDS: FOLIC ACID 1 MG TABLET PO SCH (09:46)
[2020-02-18] MEDS: PANTOPRAZOLE SODIUM 40 MG VIAL IV SCH ×2 (11:03→22:59)
[2020-02-18] MEDS: NICOTINE 14 MG/24 HR PATCH.TD24 TD SCH (16:26)
[2020-02-18] MEDS ORDERED: NICOTINE 14 MG/24 HR PATCH.TD24 TD SCH (17:00)
--- NOTE | 2020-02-18 18:44 | PDOC PROGRESS REPORT ---
Subjective Subjective:: Patient admitted for worsening abdominal distention,, abdominal pain, and shortness of breath. After admission, patient hemoglobin had acute drop to 6.4. And this was repeated with the same result. Patient's blood pressures been lower limit normal since admission and her midodrine has been increased. She has her 1 unit PRBC with a recheck hemoglobin thereafter. Bladder scan to be done and she has now been given a Acosta catheter placed for strict I's and O's. Patient denies any bleeding in her stool/urine/sputum/vomit. She does not have any potential sources of bleeding on exam either. Subcutaneous heparin was ordered on admission and I have discontinued this today. Potassium is low we will replete this. I have ordered a pathology review of her blood smear. GI consulted. Patient has abdominal discomfort but otherwise no new complaints. 02/15/2020 Patient feeling mildly better today from an energy standpoint but her abdomen seems to be more distended. She would certainly benefit from a paracentesis but her INR is still not low enough for to have this done. I have given her an additional dose of vitamin K today we will recheck her INR this afternoon. Hemoglobin is gone up to 8.8 from the 1 unit PRBC she was given yesterday. Blood pressure remains low. GI consulted and they recommended patient be transferred to a tertiary facility where she could potentially have a TIPS procedure. I think this is a good idea as I am unable to properly diurese her with Lasix due to low BP and her urine output has reportedly been dropping off. I think she is extremely high risk to develop hepatorenal syndrome if she continues this way. We are very limited in our options to remove volume from her safely due to low BP. I have reached out to multiple facilities about transferring recently and have been denied. I will need to extend my search to facilities outside the local area. Patient has no new complaints today otherwise. 02/16/2020 Patient does not seem to be changed very much from yesterday for the better for the worse. However on exam her abdomen seems to be a bit more distended today but not significantly. Her INR has not really budged since giving her vitamin K twice. Doubt she would be able to tolerate hemodynamically getting a paracentesis anyway. I have called the transfer center at [facility] to see if she can be transferred there and she has been accepted. They are at capacity and she should be transferred there within the next 48 hours according to the transfer center personnel. Patient has been accepted by Dr. FISCHER on the medical staff and I discussed the case with the plastic die maker apprentice as well who agreed with the transfer for evaluation of TIPS. Hemoglobin is markedly higher at 10.5 which may be a lab error. Her creatinine remained stable though her urine out put is a meager 400 cc since yesterday. Unclear if this is being accurately tracked or not. Other than generalized fatigue and weakness and distended abdomen patient has no new complaints today. 02/17/2020 Per the recommendations of the soil scientist I spoke with yesterday, I put the patient on oral Lasix and Aldactone. Her blood pressure seems to be holding its own today but is slightly lower. Patient denies any new complaints other than chronic generalized fatigue and weakness. Sodium is a bit lower and her blood cultures are negative. Hemoglobin has risen again to 11.4. This is probably due to increase in volume. 02/18/2020 Per nursing who spoke with [facility] this morning patient still does not have a bed and has no prospects of getting one today or overnight. Patient's blood pressure still remains low however she is asymptomatic from this. Looks like GI made some recommendations but did not actually order a single thing including the multiple serologies and medications listed in their note. I will hold off on Sandostatin for now as the patient does not have bleeding varices or hepatorenal syndrome as of right now. I have ordered the serologies that were requested although I doubt these will add much to change her management. We are still awaiting due to take the patient to have a bed. He has no new complaints today. Reason For Visit: ABDOMINAL PAIN,ASCITES,HEPATIC CIRRHOSIS Physical Exam Vital Signs: Temp Pulse Resp BP Pulse Ox 97.8 F 86 18 115/75 94 02/18/20 16:21 02/18/20 16:21 02/18/20 16:21 02/18/20 16:21 02/18/20 16:21 Intake & Output 02/17/20 02/18/20 02/19/20 06:59 06:59 06:59 Intake Total 460 710 10 Output Total 800 650 100 Balance -340 60 -90 Weight 52.2 kg 51.8 kg Exam: General appearance: PRESENT: no acute distress, thin, states she feels okay today and she thinks she is having a bit more urine output Head exam: PRESENT: atraumatic, normocephalic Eye exam: PRESENT: conjunctiva pink Mouth exam: PRESENT: moist Respiratory exam: PRESENT: clear to auscultation valentin. ABSENT: rales, rhonchi, wheezes Cardiovascular exam: PRESENT: RRR. ABSENT: diastolic murmur, rubs, systolic murmur GI/Abdominal exam: PRESENT: ascites, distended, normal bowel sounds, soft, tenderness - Mild. ABSENT: guarding, mass, organolmegaly, rebound Neurological exam: PRESENT: alert, awake, oriented to person, oriented to place, oriented to time, oriented to situation Psychiatric exam: PRESENT: appropriate affect, normal mood Skin exam: PRESENT: dry, intact, warm Results Laboratory Results: 02/17/20 10:56 02/17/20 06:56 Impressions: Abdomen/Pelvis CT 02/13/20 14:59 IMPRESSION: Moderate ascites, increased compared to 01/30/2020 Increasing bilateral pleural effusions Profound attenuation of the liver from fatty infiltration Assessment and Plan - Diagnosis (1) Cirrhosis of liver Qualifiers: Hepatic cirrhosis type: alcoholic cirrhosis Ascites presence: with ascites Qualified Code(s): K70.31 - Alcoholic cirrhosis of liver with ascites Is this a current diagnosis for this admission?: Yes Plan: Per admitting physician: "History of heavy alcohol abuse. Recently diagnosed with hepatic cirrhosis with varices. As per chart review patient had upper GI endoscopy in [place] and was told th at she had bad varices. Denies any hemoptysis, hematemesis, hematuria, melena or hematochezia. Alert and oriented x3 no sign of hepatic encephalopathy. P.o. rifaximin. P.o. lactulose PRN titrate to have 2-3 soft bowel movements daily. Lasix and Aldactone if BP is allows. Monitor for bleeding. Monitor electrolytes and volume status. Avoid hepatotoxic medications. Gastroenterology consulted." Patient denies still abusing alcohol 02/15/2022 Called [facility] and discussed the case with the hospitalist and soil scientist both of whom agreed patient should be transferred to their tertiary facility Patient accepted to [facility] and we are awaiting a bed which patient should receive in the next 48 hours 02/17/2020 Accepted at [facility] but we are waiting on a bed Lower sodium Maintained on oral Lasix and Aldactone 02/18/2020 ITA, AMA, ceruloplasmin, hepatitis Hold off on Sandostatin recommended by GI as she does not have bleeding varices or hepatorenal syndrome Await [facility] transfer when they have a bed (2) Ascites Qualifiers: Ascites type: due to alcoholic cirrhosis Qualified Code(s): K70.31 - Alcoholic cirrhosis of liver with ascites Is this a current diagnosis for this admission?: Yes (3) Anemia Qualifiers: Anemia type: other cause Other causes of anemia: other cause, not classified Qualified Code(s): D64.89 - Other specified anemias Is this a current diagnosis for this admission?: Yes (4) Coagulopathy Is this a current diagnosis for this admission?: Yes (5) Acute hypoxemic respiratory failure Is this a current diagnosis for this admission?: Yes (6) Hypotension Qualifiers: Hypotension type: other hypotension type Qualified Code(s): I95.89 - Other hypotension Is this a current diagnosis for this admission?: Yes (7) Macrocytic anemia Is this a current diagnosis for this admission?: Yes (8) Protein-calorie malnutrition, moderate Is this a current diagnosis for this admission?: Yes - Time Time Spent with patient: 15-24 minutes Anticipated Discharge Disposition: Tertiary Anticipated Discharge Timeframe: within 48 hours - Inpatient Certification Based on my medical assessment, after consideration of the patient's comorbidities, presenting symptoms, or acuity I expect that the services needed warrant INPATIENT care.: Yes I certify that my determination is in accordance with my understanding of Medicare's requirements for reasonable and necessary INPATIENT services [42 CFR 412.3e].: Yes Medical Necessity: Significant Comorbidiites Make Outpatient Treatment Too Risky, Need Close Monitoring Due to Risk of Patient Decompensation, Need for IV Antibiotics, Risk of Complication if Not Cared For in Hospital, Risk of Diagnosis Which Will Require Inpatient Eval/Care/Monitoring
[2020-02-18] MEDS: CEFTRIAXONE 1 GM/D5W RTU 1 GM/50 ML RTUPB IV SCH (22:59)
[2020-02-19] MEDS: OXYCODONE HCL IR 5 MG TABLET PO PRN ×4 (04:29→23:16)
[2020-02-19] MEDS: PANTOPRAZOLE SODIUM 40 MG VIAL IV SCH ×2 (09:41→22:38)
[2020-02-19] MEDS: NICOTINE 14 MG/24 HR PATCH.TD24 TD SCH (09:45)
[2020-02-19] MEDS: LACTULOSE SYRUP 20 GM/30 ML UDCUP PO SCH ×2 (09:46→22:37)
[2020-02-19] MEDS: THIAMINE HCL 100 MG TABLET PO SCH (09:46)
[2020-02-19] MEDS: FUROSEMIDE 20 MG TABLET PO SCH (09:46)
[2020-02-19] MEDS: FOLIC ACID 1 MG TABLET PO SCH (09:46)
[2020-02-19] MEDS: SPIRONOLACTONE 25 MG TABLET PO SCH (09:46)
[2020-02-19] MEDS: MIDODRINE HCL 5 MG TABLET PO SCH ×3 (09:47→17:12)
[2020-02-19] MEDS: RIFAXIMIN 550 MG TABLET PO SCH ×2 (09:47→22:37)
[2020-02-19 10:55] LABS: ANION GAP 8 (5-19); BLOOD UREA NITROGEN 6 mg/dL (7-20); CALCIUM 7.9 mg/dL (8.4-10.2); CARBON DIOXIDE 24 mmol/L (22-30); CHLORIDE 96 mmol/L (98-107); GLUCOSE 144 mg/dL (75-110); POTASSIUM 3.3 mmol/L (3.6-5.0)
[2020-02-19] MEDS ORDERED: BISACODYL 10 MG SUPP.RECT PR PRN (15:11)
[2020-02-19] MEDS ORDERED: BISACODYL 5 MG TABEC PO PRN (15:11)
--- NOTE | 2020-02-19 15:44 | PDOC PROGRESS REPORT ---
Subjective Subjective:: Patient admitted for worsening abdominal distention,, abdominal pain, and shortness of breath. After admission, patient hemoglobin had acute drop to 6.4. And this was repeated with the same result. Patient's blood pressures been lower limit normal since admission and her midodrine has been increased. She has her 1 unit PRBC with a recheck hemoglobin thereafter. Bladder scan to be done and she has now been given a Acosta catheter placed for strict I's and O's. Patient denies any bleeding in her stool/urine/sputum/vomit. She does not have any potential sources of bleeding on exam either. Subcutaneous heparin was ordered on admission and I have discontinued this today. Potassium is low we will replete this. I have ordered a pathology review of her blood smear. GI consulted. Patient has abdominal discomfort but otherwise no new complaints. 02/15/2020 Patient feeling mildly better today from an energy standpoint but her abdomen seems to be more distended. She would certainly benefit from a paracentesis but her INR is still not low enough for to have this done. I have given her an additional dose of vitamin K today we will recheck her INR this afternoon. Hemoglobin is gone up to 8.8 from the 1 unit PRBC she was given yesterday. Blood pressure remains low. GI consulted and they recommended patient be transferred to a tertiary facility where she could potentially have a TIPS procedure. I think this is a good idea as I am unable to properly diurese her with Lasix due to low BP and her urine output has reportedly been dropping off. I think she is extremely high risk to develop hepatorenal syndrome if she continues this way. We are very limited in our options to remove volume from her safely due to low BP. I have reached out to multiple facilities about transferring recently and have been denied. I will need to extend my search to facilities outside the local area. Patient has no new complaints today otherwise. 02/16/2020 Patient does not seem to be changed very much from yesterday for the better for the worse. However on exam her abdomen seems to be a bit more distended today but not significantly. Her INR has not really budged since giving her vitamin K twice. Doubt she would be able to tolerate hemodynamically getting a paracentesis anyway. I have called the transfer center at [facility] to see if she can be transferred there and she has been accepted. They are at capacity and she should be transferred there within the next 48 hours according to the transfer center personnel. Patient has been accepted by Dr. FISCHER on the medical staff and I discussed the case with the broadcast director operations as well who agreed with the transfer for evaluation of TIPS. Hemoglobin is markedly higher at 10.5 which may be a lab error. Her creatinine remained stable though her urine out put is a meager 400 cc since yesterday. Unclear if this is being accurately tracked or not. Other than generalized fatigue and weakness and distended abdomen patient has no new complaints today. 02/17/2020 Per the recommendations of the incoming freight clerk I spoke with yesterday, I put the patient on oral Lasix and Aldactone. Her blood pressure seems to be holding its own today but is slightly lower. Patient denies any new complaints other than chronic generalized fatigue and weakness. Sodium is a bit lower and her blood cultures are negative. Hemoglobin has risen again to 11.4. This is probably due to increase in volume. 02/18/2020 Per nursing who spoke with [facility] this morning patient still does not have a bed and has no prospects of getting one today or overnight. Patient's blood pressure still remains low however she is asymptomatic from this. Looks like GI made some recommendations but did not actually order a single thing including the multiple serologies and medications listed in their note. I will hold off on Sandostatin for now as the patient does not have bleeding varices or hepatorenal syndrome as of right now. I have ordered the serologies that were requested although I doubt these will add much to change her management. We are still awaiting due to take the patient to have a bed. He has no new complaints today. 02/19/2020 Patient's abdomen seems to be a bit bigger today and I think at least part of this is due to her being constipated. I have added a bowel regimen for her and increased her lactulose. We can use a soapsuds enema after the aforementioned bowel regimen fails. I have added 2 doses of vitamin K to hopefully bring down her INR by tomorrow so that she can have her paracentesis. We are still waiting on bed availability for [facility]. They have been calling for updates on the patient daily but have not said anything about when she might get a bed. Patient does complain of worse abdominal distention and more fatigue today. She is also having some problems with early satiety and not eating very much. Hopefully this will improve when she has a bowel movement. Reason For Visit: ABDOMINAL PAIN,ASCITES,HEPATIC CIRRHOSIS Physical Exam Vital Signs: Temp Pulse Resp BP Pulse Ox 98.3 F 101 H 18 100/80 96 02/19/20 12:50 02/19/20 12:50 02/19/20 12:50 02/19/20 12:50 02/19/20 12:50 Intake & Output 02/18/20 02/19/20 02/20/20 06:59 06:59 06:59 Intake Total 710 220 0 Output Total 650 450 Balance 60 -230 0 Weight 51.8 kg 50.9 kg Exam: General appearance: PRESENT: no acute distress, thin, states her abdomen is more distended today Head exam: PRESENT: atraumatic, normocephalic Eye exam: PRESENT: conjunctiva pink Mouth exam: PRESENT: moist Respiratory exam: PRESENT: clear to auscultation valentin. ABSENT: rales, rhonchi, wheezes Cardiovascular exam: PRESENT: RRR. ABSENT: diastolic murmur, rubs, systolic murmur GI/Abdominal exam: PRESENT: ascites, distended, normal bowel sounds, soft, tenderness - Mild. ABSENT: guarding, mass, organolmegaly, rebound Neurological exam: PRESENT: alert, awake, oriented to person, oriented to place, oriented to time, oriented to situation Psychiatric exam: PRESENT: appropriate affect, normal mood Skin exam: PRESENT: dry, intact, warm Results Laboratory Results: 02/17/20 10:56 02/19/20 10:25 02/19/20 02/19/20 10:25 12:12 Sodium 127.8 L Potassium 3.3 L Chloride 96 L Carbon Dioxide 24 Anion Gap 8 BUN 6 L Creatinine 0.44 L Est GFR ( Amer) > 60 Glucose 144 H Calcium 7.9 L Stool Occult Blood NEGATIVE 02/14/20 05:06 Blood Blood Culture - Final NO GROWTH IN 5 DAYS 02/13/20 23:20 Blood Blood Culture - Final NO GROWTH IN 5 DAYS Impressions: Abdomen/Pelvis CT 02/13/20 14:59 IMPRESSION: Moderate ascites, increased compared to 01/30/2020 Increasing bilateral pleural effusions Profound attenuation of the liver from fatty infiltration Assessment and Plan - Diagnosis (1) Cirrhosis of liver Qualifiers: Hepatic cirrhosis type: alcoholic cirrhosis Ascites presence: with ascites Qualified Code(s): K70.31 - Alcoholic cirrhosis of liver with ascites Is this a current diagnosis for this admission?: Yes Plan: Per admitting physician: "History of heavy alcohol abuse. Recently diagnosed with hepatic cirrhosis with varices. As per chart review patient had upper GI endoscopy in [place] and was told that she had bad varices. Denies any hemoptysis, hematemesis, hematuria, melena or hematochezia. Alert and oriented x3 no sign of hepatic encephalopathy. P.o. rifaximin. P.o. lactulose PRN titrate to have 2-3 soft bowel movements daily. Lasix and Aldactone if BP is allows. Monitor for bleeding. Monitor electrolytes and volume status. Avoid hepatotoxic medications. Gastroenterology consulted." Patient denies still abusing alcohol 02/15/2022 Called [facility] and discussed the case with the hospitalist and incoming freight clerk both of whom agreed patient should be transferred to their tertiary facility Patient accepted to [facility] and we are awaiting a bed which patient should receive in the next 48 hours 02/17/2020 Accepted at [facility] but we are waiting on a bed Lower sodium Maintained on oral Lasix and Aldactone 02/18/2020 ITA, AMA, ceruloplasmin, hepatitis Hold off on Sandostatin recommended by GI as she does not have bleeding varices or hepatorenal syndrome Await [facility] transfer when they have a bed 02/19/2020 Abdomen seems to be a bit more distended today, we will give 2 doses of vitamin K and recheck INR in the hopes of making get paracentesis tomorrow If INR is still not as low as we need to be, we will give FFP and recheck again although this is a tricky decision as we may worsen her edema and there is no guarantee the INR will actually come down with a unit of FFP We are still waiting on [facility] to tell us they have a bed (2) Ascites Qualifiers: Ascites type: due to alcoholic cirrhosis Qualified Code(s): K70.31 - Alcoholic cirrhosis of liver with ascites Is this a current diagnosis for this admission?: Yes Plan: Due to severe alcoholic cirrhosis Unable to get paracentesis due to significantly elevated INR, give vitamin K and recheck INR May worsen with transfusions, IV Lasix ordered with strict I/O and Acosta catheter 02/15/2020 GI consulted: Recommends transfer to a facility that can perform a TIPS procedure as we are limited our ability to remove fluid and treat her cirrhosis and ascites without dropping her already low BP Lasix as BP allows Paracentesis ordered though low BP and elevated INR been prohibiting this from getting done so far, given vitamin K x2 02/15/2022 Abdomen perhaps a bit more distended today Worse (3) Anemia Qualifiers: Anemia type: other cause Other causes of anemia: other cause, not classified Qualified Code(s): D64.89 - Other specified anemias Is this a current diagnosis for this admission?: Yes (4) Coagulopathy Is this a current diagnosis for this admission?: Yes (5) Acute hypoxemic respiratory failure Is this a current diagnosis for this admission?: Yes (6) Hypotension Qualifiers: Hypotension type: other hypotension type Qualified Code(s): I95.89 - Other hypotension Is this a current diagnosis for this admission?: Yes (7) Macrocytic anemia Is this a current diagnosis for this admission?: Yes (8) Protein-calorie malnutrition, moderate Is this a current diagnosis for this admission?: Yes - Time Time Spent with patient: 25-34 minutes Anticipated Discharge Disposition: Tertiary Anticipated Discharge Timeframe: within 48 hours - Inpatient Certification Based on my medical assessment, after consideration of the patient's comorbidities, presenting symptoms, or acuity I expect that the services needed warrant INPATIENT care.: Yes I certify that my determination is in accordance with my understanding of Medicare's requirements for reasonable and necessary INPATIENT services [42 CFR 412.3e].: Yes Medical Necessity: Significant Comorbidiites Make Outpatient Treatment Too Risky, Need Close Monitoring Due to Risk of Patient Decompensation, Risk of Complication if Not Cared For in Hospital, Risk of Diagnosis Which Will Require Inpatient Eval/Care/Monitoring
[2020-02-19 16:11] LABS: INTERNATIONAL RATION (INR) 2.64; PROTHROMBIN TIME 28.1 SEC (11.4-15.4)
[2020-02-19] MEDS: PHYTONADIONE INJ 10 MG/1 ML AMPULE SUBCUT SCH (17:12)
[2020-02-19] MEDS: CEFTRIAXONE 1 GM/D5W RTU 1 GM/50 ML RTUPB IV SCH (22:38)
--- NOTE | 2020-02-20 00:41 | PDOC TRANSFER SUMMARY ---
General Admission Date/PCP: 02/13/20 18:31 - Transfer Diagnosis (1) Cirrhosis of liver Is this a current diagnosis for this admission?: Yes (2) Ascites Is this a current diagnosis for this admission?: Yes (3) Macrocytic anemia Is this a current diagnosis for this admission?: Yes (4) Coagulopathy Is this a current diagnosis for this admission?: Yes (5) Acute hypoxemic respiratory failure Is this a current diagnosis for this admission?: Yes (6) Hypotension Is this a current diagnosis for this admission?: Yes (7) Protein-calorie malnutrition, moderate Is this a current diagnosis for this admission?: Yes - Transfer Medications Home Medications: No Home Medications 08/24/19 Transfer Medications: Current Medications Acetaminophen (Tylenol 325 Mg Tablet) 325 mg PO Q4HP PRN PRN Reason: FEVER >101 Stop: 03/14/20 21:14 Albuterol/Ipratropium (Duoneb 3 Ml Ampul) 3 ml NEB RTQ6HP PRN PRN Reason: SHORTNESS OF BREATH Stop: 03/14/20 21:14 Bisacodyl (Dulcolax 10 Mg Supp.Rect) 10 mg LA DAILYP PRN PRN Reason: UNRESOLVED CONSTIPATION Stop: 03/20/20 15:10 Bisacodyl (Dulcolax 5 Mg Tablet) 5 mg PO DAILYP PRN PRN Reason: UNRESOLVED CONSTIPATION Stop: 03/20/20 15:10 Dextrose (Dextrose Inj 50% Syringe (25 Gm/50 Ml)) 12.5 gm IV PRN PRN; Protocol PRN Reason: FOR BG 50-69 IN ALERT PATIENT Stop: 03/14/20 23:08 Dextrose (Dextrose Inj 50% Syringe (25 Gm/50 Ml)) 25 gm IV PRN PRN; Protocol PRN Reason: See Label Comments Stop: 03/14/20 23:08 Folic Acid (Folvite 1 Mg Tablet) 1 mg PO DAILY SUNNY Stop: 03/15/20 09:59 Last Admin: 02/19/20 09:46 Dose: 1 mg Documented by: Furosemide (Lasix 20 Mg Tablet) 20 mg PO DAILY SUNNY Stop: 03/17/20 15:59 Last Admin: 02/19/20 09:46 Dose: 20 mg Documented by: Glucagon (Glucagen Inj 1 Mg Vial) 1 mg SUBCUT PRN PRN; Protocol PRN Reason: Evaluate for BG < 70 Stop: 03/14/20 23:08 Glucose (Glutose 40% Gel 15 Gm Tube) 15 gm PO PRN PRN; Protocol PRN Reason: For BG 50-69 in Alert Patient Stop: 03/14/20 23:08 Glucose (Glutose 40% Gel 15 Gm Tube) 30 gm PO PRN PRN; Protocol PRN Reason: FOR BG < 50 IN ALERT PATIENT Stop: 03/14/20 23:08 Ceftriaxone Sodium/Dextrose (Rocephin Rtu 1 Gm/D5w 50 Ml Premix) 1 gm in 50 mls @ 100 mls/hr IV QHS [facility] Stop: 02/27/20 21:59 Last Admin: 02/19/20 22:38 Dose: 100 mls/hr Documented by: Lactulose (Cephulac Syrup 20 Gm/30 Ml Udcup) 10 gm PO Q8 [facility] Stop: 03/20/20 21:59 Last Admin: 02/19/20 22:37 Dose: 10 gm Documented by: Magnesium Hydroxide (Milk Of Magnesia 30 Ml Udcup) 30 ml PO HSP PRN PRN Reason: FOR CONSTIPATION Stop: 03/14/20 21:14 Midodrine (Proamatine 5 Mg Tablet) 10 mg PO TID [facility] Stop: 03/15/20 09:59 Last Admin: 02/19/20 17:12 Dose: 10 mg Documented by: Nicotine (Nicoderm 14 Mg/24 Hr Transdermal Patch) 1 each TD DAILY [facility] Stop: 03/19/20 16:14 Last Admin: 02/19/20 09:45 Dose: 1 each Documented by: Ondansetron HCl (Zofran Inj/Pf 4 Mg/2 Ml Sdv) 4 mg IV Q4HP PRN PRN Reason: FOR NAUSEA/VOMITING Stop: 03/14/20 21:14 Oxycodone HCl (Oxy-Ir 5 Mg Tablet) 5 mg PO Q6HP PRN PRN Reason: FOR PAIN Stop: 02/21/20 10:45 Last Admin: 02/19/20 23:16 Dose: 5 mg Documented by: Pantoprazole Sodium (Protonix Iv Inj 40 Mg Vial) 40 mg IV Q12 [facility] Stop: 02/27/20 21:59 Last Admin: 02/19/20 22:38 Dose: 40 mg Documented by: Phytonadione (Aqua-Mephyton Inj 10 Mg/1 Ml Ampule) 5 mg SUBCUT Q12A [facility] Stop: 02/20/20 06:01 Last Admin: 02/19/20 17:12 Dose: 5 mg Documented by: Promethazine HCl (Phenergan Inj 25 Mg/1 Ml Vial) 6.25 mg IV Q4HP PRN PRN Reason: FOR NAUSEA/VOMITING Stop: 03/14/20 21:14 Rifaximin (Xifaxan 550 Mg Tablet) 550 mg PO Q12 [facility]NY Stop: 02/27/20 21:59 Last Admin: 02/19/20 22:37 Dose: 550 mg Documented by: Spironolactone (Aldactone 25 Mg Tablet) 50 mg PO DAILY [facility] Stop: 03/17/20 15:59 Last Admin: 02/19/20 09:46 Dose: 50 mg Documented by: Temazepam (Restoril 7.5 Mg Capsule) 7.5 mg PO HSP PRN PRN Reason: SLEEP OR INSOMNIA Stop: 02/27/20 21:14 Last Admin: 02/17/20 01:57 Dose: 7.5 mg Documented by: Thiamine HCl (Thiamine 100 Mg Tablet) 100 mg PO DAILY [facility] Stop: 03/15/20 09:59 Last Admin: 02/19/20 09:46 Dose: 100 mg Documented by: - Allergies Allergies/Adverse Reactions: No Known Allergies Allergy (Verified 02/13/20 12:51) Hospital Course Hospital Course: Patient admitted for worsening abdominal distention,, abdominal pain, and shortness of breath. After admission, patient hemoglobin had acute drop to 6.4. And this was repeated with the same result. Patient's blood pressures been lower limit normal since admission and her midodrine has been increased. She has her 1 unit PRBC with a recheck hemoglobin thereafter. Bladder scan to be done and she has now been given a Acosta catheter placed for strict I's and O's. Patient denies any bleeding in her stool/urine/sputum/vomit. She does not have any potential sources of bleeding on exam either. Subcutaneous heparin was ordered on admission and I have discontinued this today. Potassium is low we will replete this. I have ordered a pathology review of her blood smear. GI consulted. Patient has abdominal discomfort but otherwise no new complaints. 02/15/2020 Patient feeling mildly better today from an energy standpoint but her abdomen seems to be more distended. She would certainly benefit from a paracentesis but her INR is still not low enough for to have this done. I have given her an add itional dose of vitamin K today we will recheck her INR this afternoon. Hemoglobin is gone up to 8.8 from the 1 unit PRBC she was given yesterday. Blood pressure remains low. GI consulted and they recommended patient be transferred to a tertiary facility where she could potentially have a TIPS pr ocedure. I think this is a good idea as I am unable to properly diurese her with Lasix due to low BP and her urine output has reportedly been dropping off. I think she is extremely high risk to develop hepatorenal syndrome if she continues this way. We are very limited in our options to remove volume from her safely due to low BP. I have reached out to multiple facilities about transferring recently and have been denied. I will need to extend my search to facilities outside the local area. Patient has no new complaints today otherwise. 02/16/2020 Patient does not seem to be changed very much from yesterday for the better for the worse. However on exam her abdomen seems to be a bit more distended today but not significantly. Her INR has not really budged since giving her vitamin K twice. Doubt she would be able to tolerate hemodynamically getting a paracentesis anyway. I have called the transfer center at [place] to see if she can be transferred there and she has been accepted. They are at capacity and she should be transferred there within the next 48 hours according to the [facility] center personnel. Patient has been accepted by Dr. FISCHER on the medical staff and I discussed the case with the aircraft cleaner as well who agreed with the transfer for evaluation of TIPS. Hemoglobin is markedly higher at 10.5 which may be a lab error. Her creatinine remained stable though her urine output is a meager 400 cc since yesterday. Unclear if this is being accurately tracked or not. Other than generalized fatigue and weakness and distended abdomen patient has no new complaints today. 02/17/2020 Per the recommendations of the general road foreman I spoke with yesterday, I put the p atient on oral Lasix and Aldactone. Her blood pressure seems to be holding its own today but is slightly lower. Patient denies any new complaints other than chronic generalized fatigue and weakness. Sodium is a bit lower and her blood cultures are negative. Hemoglobin has risen again to 11.4. This is probably due to increase in volume. 02/18/2020 Per nursing who spoke with [place] this morning patient still does not have a bed and has no prospects of getting one today or overnight. Patient's blood pressure still remains low however she is asymptomatic from this. Looks like GI made some recommendations but did not actually order a single thing including the multiple serologies and medications listed in their note. I will hold off on Sandostatin for now as the patient does not have bleeding varices or hepatorenal syndrome as of right now. I have ordered the serologies that were requested although I doubt these will add much to change her management. We are still awaiting due to take the patient to have a bed. He has no new complaints today. 02/19/2020 Patient's abdomen seems to be a bit bigger today and I think at least part of this is due to her being constipated. I have added a bowel regimen for her and increased her lactulose. We can use a soapsuds enema after the aforementioned bowel regimen fails. I have added 2 doses of vitamin K to hopefully bring down her INR by tomorrow so that she can have her paracentesis. We are still waiting on bed availability for [facility]. They have been calling for updates on the patient daily but have not said anything about when she might get a bed. Patient does complain of worse abdominal distention and more fatigue today. She is also having some problems with early satiety and not eating very much. Hopefully this will improve when she has a bowel movement. 02/19/2020 A bed for the patient is available at [place] at this time so she will be transferred to Dr. Vazquez's service for gastroenterology evaluation for TIPS pro cedure. Physical Exam Vital Signs: Temp Pulse Resp BP Pulse Ox 98.0 F 96 16 99/75 L 96 02/19/20 20:10 02/19/20 20:10 02/19/20 20:10 02/19/20 20:10 02/19/20 20:10 Intake & Output 02/18/20 02/19/20 02/20/20 23:59 23:59 23:59 Intake Total 220 876 Output Total 750 250 Balance -530 626 Weight 51.8 kg 50.9 kg General appearance: PRESENT: no acute distress Head exam: PRESENT: atraumatic, normocephalic Results Laboratory Results: 02/17/20 10:56 02/19/20 10:25 02/19/20 02/19/20 10:25 12:12 Sodium 127.8 L Potassium 3.3 L Chloride 96 L Carbon Dioxide 24 Anion Gap 8 BUN 6 L Creatinine 0.44 L Est GFR ( Amer) > 60 Glucose 144 H Calcium 7.9 L Stool Occult Blood NEGATIVE 02/14/20 05:06 Blood Blood Culture - Final NO GROWTH IN 5 DAYS 02/13/20 23:20 Blood Blood Culture - Final NO GROWTH IN 5 DAYS Impressions: Abdomen/Pelvis CT 02/13/20 14:59 IMPRESSION: Moderate ascites, increased compared to 01/30/2020 Increasing bilateral pleural effusions Profound attenuation of the liver from fatty infiltration Plan Discharge Plan: Transfer to [place] Time Spent: Greater than 30 Minutes
[2020-02-20] MEDS: PHYTONADIONE INJ 10 MG/1 ML AMPULE SUBCUT SCH (05:00)
[2020-02-20] MEDS: LACTULOSE SYRUP 20 GM/30 ML UDCUP PO SCH (05:01)
[2020-02-20] MEDS: OXYCODONE HCL IR 5 MG TABLET PO PRN (06:56)
[2020-02-20 07:37] LABS: HEPATITS B SURFACE ANTIGEN Negative (Negative)
[2020-02-20] MEDS: SPIRONOLACTONE 25 MG TABLET PO SCH (09:31)
[2020-02-20] MEDS: FUROSEMIDE 20 MG TABLET PO SCH (09:31)
[2020-02-20] MEDS: MIDODRINE HCL 5 MG TABLET PO SCH (09:32)
[2020-02-20] MEDS: THIAMINE HCL 100 MG TABLET PO SCH (09:32)
[2020-02-20] MEDS: FOLIC ACID 1 MG TABLET PO SCH (09:32)
[2020-02-20] MEDS: NICOTINE 14 MG/24 HR PATCH.TD24 TD SCH (09:33)
[2020-02-20] MEDS: PANTOPRAZOLE SODIUM 40 MG VIAL IV SCH (09:33)
[2020-02-20] MEDS: RIFAXIMIN 550 MG TABLET PO SCH (09:39)
[2020-02-20 10:03] LABS: HEPATITIS C VIRUS ANTIBODY <0.1 s/co ratio (0.0-0.9)
[2020-02-20 10:26] VITALS: BP 109/76
[2020-02-22 07:20] LABS: MITOCHONDRIAL (M2) ANTIBODY 30.7 Units (0.0-20.0)
== END 2020-02-20 11:29 | disposition short-term general hospital (02) | DRG 432 ==
LOC: ER 11:29 → EH 18:31 → 5 22:45
PROVIDERS: ADMIT Hospitalist; ATTEND Internal Medicine
PROC: 30233N1 Transfusion of Nonautologous Red Blood Cells into Peripheral Vein, Percutaneous Approach (ICD-10-PCS; principal; 2020-02-14)
DX: K70.31 Alcoholic cirrhosis of liver with ascites (principal); J96.01 Acute respiratory failure with hypoxia; E44.0 Moderate protein-calorie malnutrition; D68.9 Coagulation defect, unspecified; E87.1 Hypo-osmolality and hyponatremia; D69.6 Thrombocytopenia, unspecified; D64.89 Other specified anemias; I95.9 Hypotension, unspecified; C50.919 Malignant neoplasm of unspecified site of unspecified female breast; D53.9 Nutritional anemia, unspecified; Z68.21 Body mass index [BMI] 21.0-21.9, adult; Z79.899 Other long term (current) drug therapy; K59.00 Constipation, unspecified; E03.9 Hypothyroidism, unspecified; Z96.652 Presence of left artificial knee joint; F17.210 Nicotine dependence, cigarettes, uncomplicated; Z80.9 Family history of malignant neoplasm, unspecified
CPT/HCPCS: 36415; 36430; 51702; 74177; 80048; 80053; 80074; 81001; 82140; 82272; 82306; 82390; 82607; 82728; 82746; 83540; 83550; 83690; 83735; 85025; 85045; 85610; 85730; 86038; 86256; 86850; 86900; 86901; 86920; 87040; 96365; 96366; 96375; 96376; 99285; A9270-GY; C9113; J0696; J1644; J2270; J3010; J3430; J3475; J3490; J7030; P9016; P9047